=== PATIENT | female | born 1955 | race Caucasian/White ===

== ENCOUNTER 2020-05-10 21:35 | Inpatient (IN) | payer OTHER, MEDICAID ==
[~2020-05-10] VITALS: Ht 162.6 cm; Wt 60.5 kg
[2020-05-10 22:06] LABS: BASO % 0 % (0-3); EOS # 0.1 x10^3/uL (0.0-0.7); EOS % 1 % (0-3); HEMATOCRIT 34.8 % (36.0-47.0); LYMPH # 0.6 x10^3/uL (1.0-4.8); LYMPH % 6 % (24-48); MEAN CORPUSCULAR HEMOGLOBIN 35 pg (25-35); MEAN CORPUSCULAR HGB CONC 34 g/dL (31-37); MEAN CORPUSCULAR VOLUME 101 fL (79-100); MONO # 0.5 x10^3/uL (0.0-1.1); MONO % 5 % (0-9); NEUT # 8.8 x10^3/uL (1.8-7.7); NEUT % 87 % (31-73); PLATELET COUNT 212 x10^3/uL (140-400); RED BLOOD COUNT 3.45 x10^6/uL (3.50-5.40); RED CELL DISTRIBUTION WIDTH 18.6 % (11.5-14.5)
[2020-05-10 22:16] LABS: CALCIUM 8.9 mg/dL (8.5-10.1); CREATININE 2.1 mg/dL (0.6-1.0); GFR 23.7; POTASSIUM 4.6 mmol/L (3.5-5.1)
[2020-05-10 22:17] LABS: PROTHROMBIN TIME PATIENT 15.5 SEC (11.7-14.0)
[2020-05-10 22:22] LABS: ALBUMIN 1.8 g/dL (3.4-5.0); ALBUMIN/GLOBULIN RATIO 0.3 (1.0-1.7); MAGNESIUM 2.1 mg/dL (1.8-2.4); TOTAL BILIRUBIN 2.9 mg/dL (0.2-1.0); TOTAL PROTEIN 7.1 g/dL (6.4-8.2)
--- NOTE | 2020-05-10 22:23 | RAD ---
EXAM: XR CHEST 1V INDICATION: Reason: soa / Spl. Instructions: / History: . TECHNIQUE: Single view COMPARISON: None FINDINGS: The heart size is normal. The great vessels show aortic calcification and tortuosity.. There is no hilar or mediastinal mass. Lungs are hypoventilatory and show coarse interstitial lung markings. There is no pleural effusion or pneumothorax. Bones show bilateral subacromial space narrowing and generalized osteopenia. IMPRESSION: Chronic lung disease with no acute superimposed process. Electronically signed by: Angel Lizama MD (05/10/2020 10:12 PM) [facility] [place]
[2020-05-10 22:35] LABS: BILIRUBIN,URINE SMALL (NEG); CLARITY,URINE CLEAR; COLOR,URINE AMBER; NITRITE,URINE NEGATIVE (NEG); PH,URINE 5.5 (<5.0-8.0); PROTEIN,URINE NEGATIVE (NEG-TRACE); UROBILINOGEN,URINE 0.2 mg/dL (0.2 mg/dL)
[2020-05-10 22:42] LABS: BACTERIA,URINE 0 /HPF (0-FEW); RBC,URINE 0 /HPF (0-2)
[2020-05-10 22:43] LABS: HYALINE CASTS, URINE MANY /HPF
[2020-05-10 22:55] LABS: % LYMPHS 7 % (24-48); % MONOS 4 % (0-10); % SEGS 89 % (35-66); ANISOCYTOSIS SLIGHT; PLT ESTIMATE ADEQUATE (ADEQUATE); POLYCHROMASIA SLIGHT; TARGET CELLS OCC
--- NOTE | 2020-05-10 23:36 | RAD ---
EXAM: CT Abdomen and Pelvis without IV contrast INDICATION: Reason: ABDOMINAL DISTENSION / Spl. Instructions: / History: TECHNIQUE: Multi-detector row CT images were acquired from the lung bases through the abdomen and pel vis without the use of IV contrast. Sagittal and coronal images were acquired from the transaxial gonsalo a. All CT scans performed at this facility utilize dose optimization techniques as appropriate to the exam, including the following: Automated exposure control and adjustment of the mA and/or KV accordi ng to patient size (this includes techniques or standardized protocols for targeted exams where dose is indication/reason for exam). ORAL CONTRAST: None COMPARISON: Chest x-ray of earlier the same day FINDINGS: The absence of IV contrast limits evaluation of soft tissue pathology. LOWER CHEST: Trace bilateral pleural effusions. LIVER: Shrunken and nodular contour, consistent with cirrhosis. BILIARY SYSTEM: Cholecystectomy. Bile ducts are not dilated. PANCREAS: Unremarkable SPLEEN: Unremarkable ADRENALS: Unremarkable KIDNEYS & URETERS: Unremarkable BLADDER: Unremarkable REPRODUCTIVE ORGANS: Unremarkable GASTROINTESTINAL: The stomach, small bowel, and colon are unremarkable. The appendix is not well seen but there are no findings of acute appendicitis MESENTERY/PERITONEUM/RETROPERITONEUM: There is a large amount of free intraperitoneal fluid. No free air. VASCULAR: Scattered arterial calcifications. No aneurysm of the abdominal aorta. LYMPH NODES: There is a large right superficial inguinal lymph node measuring 3.7 cm in diameter. Ot herwise, no adenopathy is identified. OSSEOUS & SOFT TISSUES: Chronic appearing superior endplate compression deformity at L1 and posterio r decompression at L3 and L4 with hetal and pedicle screw construct posterior fusion noted. No acute fr acture or aggressive appearing osseous lesions seen. IMPRESSION: Cirrhosis with a large amount of ascites and an enlarged right inguinal lymph node. Recommend clinical follow-up for right inguinal adenopathy with possible eventual tissue sampling if clinically appropriate. Electronically signed by: Angel Lizama MD (05/10/2020 11:29 PM) [facility] [place]
--- NOTE | 2020-05-10 23:39 | PHYS DOC ---
Past Medical History Past Medical History: Alcoholism, Diabetes-Type II, GERD, Hypertension Additional Past Medical Histor: CIRRHOSIS, ASCITES Past Surgical History: Other Additional Past Surgical Histo: UNKNOWN Smoking Status: Current Every Day Smoker Alcohol Use: Heavy General Adult EDM: Chief Complaint: ABDOMINAL PAIN HPI: HPI: Patient is a 65 year old female who was sent here from the half-way from [facility] due to abdominal pain and shortness of air. Patient had a history of alcohol cirrhosis. Patient was yet transferred to the half-way there 2 days ago from a hospital in [facility]. Patient said her belly is distended, causing her to have trouble breathing. Patient denies any cough or fever. Patient has history of diabetic, hypertension, acid reflux. Patient said the last time she had any alcohol was 10 years ago. Review of Systems: Review of Systems: Constitutional: Denies fever or chills. [] Eyes: Denies change in visual acuity. [] HENT: Denies nasal congestion or sore throat. [] Respiratory: Denies cough, positive for shortness of breath. [] Cardiovascular: Denies chest pain or edema. [] GI: Positive for abdominal pain, abdominal distention, nausea, no vomiting, no diarrhea. : Denies dysuria. [] Musculoskeletal: Denies back pain or joint pain. [] Integument: Denies rash. [] Neurologic: Denies headache, focal weakness or sensory changes. [] Endocrine: Denies polyuria or polydipsia. [] Lymphatic: Denies swollen glands. [] Psychiatric: Denies depression or anxiety. [] Heart Score: Risk Factors: Risk Factors: DM, Current or recent (<one month) smoker, HTN, HLP, family history of CAD, obesity. Risk Scores: Score 0 - 3: 2.5% MACE over next 6 weeks - Discharge Home Score 4 - 6: 20.3% MACE over next 6 weeks - Admit for Clinical Observation Score 7 - 10: 72.7% MACE over next 6 weeks - Early Invasive Strategies Physical Exam: PE: Constitutional: Well developed, well nourished, no acute distress, non-toxic appearance. [] HENT: Normocephalic, atraumatic, bilateral external ears normal, oropharynx moist, no oral exudates, nose normal. [] Eyes: PERRLA, EOMI, conjunctiva jaundice, no discharge. [] Neck: Normal range of motion, no tenderness, supple, no stridor. [] Cardiovascular:Heart rate regular rhythm, no murmur [] Lungs & Thorax: Bilateral breath sounds clear to auscultation [] Abdomen: Bowel sounds normal, moderate distention, diffused tenderness to palpation, no masses, no pulsatile masses. [] Skin: Warm, dry, no erythema, no rash. [] Back: No tenderness, no CVA tenderness. [] Extremities: No tenderness, no cyanosis, no clubbing, ROM intact, no edema. [] Neurologic: Alert but confused, disoriented to place and time, normal motor function, normal sensory function, no focal deficits noted. [] Psychologic: Affect normal, judgement normal, mood normal. [] Current Patient Data: Labs: Laboratory Tests Test 05/10/20 21:57 05/10/20 22:30 White Blood Count 10.0 x10^3/uL (4.0-11.0) Red Blood Count 3.45 x10^6/uL (3.50-5.40) L Hemoglobin 12.0 g/dL (12.0-15.5) Hematocrit 34.8 % (36.0-47.0) L Mean Corpuscular Volume 101 fL (79-100) H Mean Corpuscular Hemoglobin 35 pg (25-35) Mean Corpuscular Hemoglobin Concent 34 g/dL (31-37) Red Cell Distribution Width 18.6 % (11.5-14.5) H Platelet Count 212 x10^3/uL (140-400) Neutrophils (%) (Auto) 87 % (31-73) H Lymphocytes (%) (Auto) 6 % (24-48) L Monocytes (%) (Auto) 5 % (0-9) Eosinophils (%) (Auto) 1 % (0-3) Basophils (%) (Auto) 0 % (0-3) Neutrophils # (Auto) 8.8 x10^3/uL (1.8-7.7) H Lymphocytes # (Auto) 0.6 x10^3/uL (1.0-4.8) L Monocytes # (Auto) 0.5 x10^3/uL (0.0-1.1) Eosinophils # (Auto) 0.1 x10^3/uL (0.0-0.7) Basophils # (Auto) 0.0 x10^3/uL (0.0-0.2) Segmented Neutrophils % 89 % (35-66) H Lymphocytes % 7 % (24-48) L Monocytes % 4 % (0-10) Platelet Estimate Adequate (ADEQUATE) Polychromasia Slight Anisocytosis Slight Target Cells Occ Prothrombin Time 15.5 SEC (11.7-14.0) H Prothrombin Time INR 1.3 (0.8-1.1) H Activated Partial Thromboplast Time 30 SEC (24-38) Sodium Level 130 mmol/L (136-145) L Potassium Level 4.6 mmol/L (3.5-5.1) Chloride Level 100 mmol/L (98-107) Carbon Dioxide Level 18 mmol/L (21-32) L Anion Gap 12 (6-14) Blood Urea Nitrogen 36 mg/dL (7-20) H Creatinine 2.1 mg/dL (0.6-1.0) H Estimated GFR (Cockcroft-Gault) 23.7 BUN/Creatinine Ratio 17 (6-20) Glucose Level 211 mg/dL (70-99) H Calcium Level 8.9 mg/dL (8.5-10.1) Magnesium Level 2.1 mg/dL (1.8-2.4) Total Bilirubin 2.9 mg/dL (0.2-1.0) H Aspartate Amino Transferase (AST) 108 U/L (15-37) H Alanine Aminotransferase (ALT) 57 U/L (14-59) Alkaline Phosphatase 442 U/L (46-116) H Ammonia 25 mcmol/L (11-34) Troponin I Quantitative < 0.017 ng/mL (0.000-0.055) XL-Xnz-J-Type Natriuretic Peptide 502 pg/mL (0-124) H Total Protein 7.1 g/dL (6.4-8.2) Albumin 1.8 g/dL (3.4-5.0) L Albumin/Globulin Ratio 0.3 (1.0-1.7) L Urine Collection Type U cath Urine Color Belia Urine Clarity Clear Urine pH 5.5 (<5.0-8.0) Urine Specific [place] 1.015 (1.000-1.030) Urine Protein Negative mg/dL (NEG-TRACE) Urine Glucose (UA) Negative mg/dL (NEG) Urine Ketones (Stick) Negative mg/dL (NEG) Urine Blood Negative (NEG) Urine Nitrite Negative (NEG) Urine Bilirubin Small (NEG) Urine Urobilinogen Dipstick 0.2 mg/dL (0.2 mg/dL) Urine Leukocyte Esterase Moderate (NEG) Urine RBC 0 /HPF (0-2) Urine WBC 5-10 /HPF (0-4) Urine Squamous Epithelial Cells Occ /LPF Urine Bacteria 0 /HPF (0-FEW) Urine Hyaline Casts Many /HPF Urine Mucus Marked /LPF Laboratory Tests 05/10/20 21:57 Laboratory Tests 05/10/20 21:57 Vital Signs: Vital Signs Date Time Temp Pulse Resp B/P (MAP) Pulse Ox O2 Delivery O2 Flow Rate FiO2 05/10/20 23:14 80 136/72 (93) 94 Nasal Cannula 4.0 05/10/20 21:40 98.6 18 98.6 EKG: EKG: EKG was done at 10:21 PM, heart rate of 78 bpm, sinus rhythm, no ST segment elevation. Prolonged QTC Radiology/Procedures: Radiology/Procedures: [][facility] [address] [place] [address] IMAGING REPORT Signed PATIENT: OSVALDO RUGGIERO ACCOUNT: [id number] : 1955 LOCATION: ER AGE: 65 SEX: F EXAM STATUS: REG ER ORD. PHYSICIAN: EVARISTO BARRAZA DO REASON: ABDOMINAL DISTENSION PROCEDURE: CT ABDOMEN PELVIS WO CONTRAST EXAM: CT Abdomen and Pelvis without IV contrast INDICATION: Reason: ABDOMINAL DISTENSION / Spl. Instructions: / History: TECHNIQUE: Multi-detector row CT images were acquired from the lung bases through the abdomen and pelvis without the use of IV contrast. Sagittal and coronal images were acquired from the transaxial data. All CT scans performed at this facility utilize dose optimization techniques as appropriate to the exam, including the following: Automated exposure control and adjustment of the mA and/or KV according to patient size (this includes techniques or standardized protocols for targeted exams where dose is indication/reason for exam). ORAL CONTRAST: None COMPARISON: Chest x-ray of earlier the same day FINDINGS: The absence of IV contrast limits evaluation of soft tissue pathology. LOWER CHEST: Trace bilateral pleural effusions. LIVER: Shrunken and nodular contour, consistent with cirrhosis. BILIARY SYSTEM: Cholecystectomy. Bile ducts are not dilated. PANCREAS: Unremarkable SPLEEN: Unremarkable ADRENALS: Unremarkable KIDNEYS & URETERS: Unremarkable BLADDER: Unremarkable REPRODUCTIVE ORGANS: Unremarkable GASTROINTESTINAL: The stomach, small bowel, and colon are unremarkable. The appendix is not well seen but there are no findings of acute appendicitis MESENTERY/PERITONEUM/RETROPERITONEUM: There is a large amount of free intraperitoneal fluid. No free air. VASCULAR: Scattered arterial calcifications. No aneurysm of the abdominal aorta. LYMPH NODES: There is a large right superficial inguinal lymph node measuring 3.7 cm in diameter. Otherwise, no adenopathy is identified. OSSEOUS & SOFT TISSUES: Chronic appearing superior endplate compression deformity at L1 and posterior decompression at L3 and L4 with hetal and pedicle screw construct posterior fusion noted. No acute fracture or aggressive appearing osseous lesions seen. IMPRESSION: Cirrhosis with a large amount of ascites and an enlarged right inguinal lymph node. Recommend clinical follow-up for right inguinal adenopathy with possible eventual tissue sampling if clinically appropriate. Electronically signed by: Dinh Lizama MD (05/10/2020 11:29 PM) [facility] [place] DICTATED and SIGNED BY: DINH LIZAMA MD DATE: 05/10/20 [id number] 0 Course & Med Decision Making: Course & Med Decision Making Pertinent Labs and Imaging studies reviewed. (See chart for details) [] Dragon Disclaimer: Dragon Disclaimer: This electronic medical record was generated, in whole or in part, using a voice recognition dictation system. Departure Departure Impression: Primary Impression: Ascites Additional Impression: Abdominal pain Disposition: 09 ADMITTED INPT THIS HOSP Admitting Physician: TREVOR (Dr. Cerna) Condition: STABLE Referrals: GUNNER HORN MD (PCP) EVARISTO BARRAZA DO May 10, 2020 23:39
[2020-05-11] MEDS ORDERED: ONDANSETRON PF 4 MG/2 ML VIAL. IV PRN ×2 (00:45→14:45)
[2020-05-11] MEDS ORDERED: MORPHINE SULFATE 4 MG/ML VIAL. IV PRN (00:45)
[2020-05-11 03:00] VITALS: BP 117/70
[2020-05-11] MEDS ORDERED: FURO-69 PO (03:10)
[2020-05-11] MEDS ORDERED: INSU100V13 SQ (03:10)
[2020-05-11] MEDS ORDERED: INSU100V6 SQ (03:10)
[2020-05-11] MEDS ORDERED: BUPR300T92 PO (03:10)
[2020-05-11] MEDS ORDERED: PANT20TA2 PO (03:10)
[2020-05-11] MEDS ORDERED: FLUO40CA2 PO (03:10)
[2020-05-11] MEDS ORDERED: SPIR50TA4 PO (03:10)
[2020-05-11] MEDS ORDERED: LACT1CAP6 PO (03:10)
[2020-05-11] MEDS ORDERED: METO50TA4 PO (03:10)
--- NOTE | 2020-05-11 04:02 | EKG ---
[facility] [address] [place] [address] Test Date: 2020-05-10 Test Time: 22:18:40 Pat Name: OSVALDO RUGGIERO Department: Room: [facility] Gender: F Dog [employer] Judge: : 1955 Requested By: EVARISTO BARRAZA Order Number: [id number] Reading MD: Perry Colvin Measurements Intervals [place] Rate: 78 P: 37 HI: 182 QRS: -14 QRSD: 98 T: 38 QT: 448 QTc: 515 Interpretive Statements SINUS RHYTHM LEFTWARD AXIS PROLONGED QT Electronically Signed On 05-20-2020 14:40:24 [employer] by Perry Colvin
[2020-05-11 07:00] VITALS: BP 107/68
--- NOTE | 2020-05-11 10:50 | PDOC1 ---
History and Physical Date of Admission Date of Admission DATE: 05/11/20 TIME: 10:49 Identification/Chief Complaint Chief Complaint 65 year old female who was sent here from the alf from [facility] due to abdominal pain and shortness of air. KNOWN history of alcohol cirrhosis. Patient was recently transferred to the alf there 2 days ago from a hospital in [facility]. Pher belly is distended, causing her to have trouble breathing. has know hx remote etoh abuse,, ascites seen on ct Past Medical History Past Medical History Past Medical History Past Medical History Past Medical History: Alcoholism, Diabetes-Type II, GERD, Hypertension Additional Past Medical Histor: CIRRHOSIS, ASCITES Past Surgical History: Other Additional Past Surgical Histo: UNKNOWN Smoking Status: Current Every Day Smoker Alcohol Use: Heavy fhx copd Cardiovascular: HTN, Hyperlipidemia Pulmonary: COPD Psych: Anxiety, Addictions Musculoskeletal: Osteoarthritis Social History Smoke: <1 pack per day ALCOHOL: heavy Drugs: None Current Problem List Problem List Problems Medical Problems: (1) Abdominal pain Status: Acute (2) Ascites Status: Acute Current Medications Current Medications Current Medications Lorazepam (Ativan Inj) 1 mg 1X ONCE IVP Last administered on 05/11/20at 00:29; Start 05/11/20 at 00:30; Stop 05/11/20 at 00:31; Status DC Ondansetron HCl (Zofran) 4 mg PRN Q8HRS PRN IV NAUSEA/VOMITING 1ST CHOICE; Start 05/11/20 at 00:45; Stop 05/12/20 at 00:44 Morphine Sulfate (Morphine Sulfate) 4 mg PRN Q2HR PRN IV SEVERE PAIN 7-10; Start 05/11/20 at 00:45; Stop 05/12/20 at 00:44 Active Scripts Active Reported Spironolactone 50 Mg Tablet 1 Tab PO BID Protonix (Pantoprazole Sodium) 20 Mg Tablet.dr 40 Mg PO DAILY Humalog (Insulin Lispro) 100 Unit/1 Ml Vial 100 Unit SQ QIDACHS Toprol XL (Metoprolol Succinate) 50 Mg Tab.er.24h 50 Mg PO DAILY Levemir (Insulin Detemir) 100 Unit/1 Ml Vial 5 Unit SQ HS Lasix (Furosemide) 20 Mg Tablet 60 Mg PO DAILY Probiotic (Lactobacillus Acidophilus) 1 Each Capsule 1 Each PO DAILY Fluoxetine Hcl 40 Mg Capsule 2 Cap PO HS Bupropion Xl (Bupropion Hcl) 300 Mg Tab.er.24h 1 Tab PO DAILY Allergies Allergies: Coded Allergies: Latex, Natural Rubber (Verified Allergy, Intermediate, 05/11/20) Physical Exam Physical Exam Constitutional: Well developed, well nourished, no acute distress, non-toxic appearance. [] HENT: Normocephalic, atraumatic, bilateral external ears normal, oropharynx moist, no oral exudates, nose normal. [] Eyes: PERRLA, EOMI, conjunctiva jaundice, no discharge. [] Neck: Normal range of motion, no tenderness, supple, no stridor. [] Cardiovascular:Heart rate regular rhythm, no murmur [] Lungs & Thorax: Bilateral breath sounds clear to auscultation [] Abdomen: Bowel sounds normal, moderate distention, diffused tenderness to palpation, no masses, no pulsatile masses. [] Skin: Warm, dry, no erythema, no rash. [] Back: No tenderness, no CVA tenderness. [] Extremities: No tenderness, no cyanosis, no clubbing, ROM intact, no edema. [] General: Alert, Cooperative, No acute distress HEENT: Atraumatic Lungs: Clear to auscultation Heart: RRR Breasts: Not examined PELVIC: Examination not indicated Extremities: No cyanosis Neuro: Cranial nerves 3-12 NL Vitals Vitals Vital Signs Date Time Temp Pulse Resp B/P (MAP) Pulse Ox O2 Delivery O2 Flow Rate FiO2 05/11/20 08:12 Nasal Cannula 4.0 05/11/20 07:00 97.2 80 18 107/68 (81) 92 97.2 Labs Labs Laboratory Tests Test 05/10/20 21:57 05/10/20 22:30 05/11/20 00:01 White Blood Count 10.0 x10^3/uL (4.0-11.0) Red Blood Count 3.45 x10^6/uL (3.50-5.40) Hemoglobin 12.0 g/dL (12.0-15.5) Hematocrit 34.8 % (36.0-47.0) Mean Corpuscular Volume 101 fL (79-100) Mean Corpuscular Hemoglobin 35 pg (25-35) Mean Corpuscular Hemoglobin Concent 34 g/dL (31-37) Red Cell Distribution Width 18.6 % (11.5-14.5) Platelet Count 212 x10^3/uL (140-400) Neutrophils (%) (Auto) 87 % (31-73) Lymphocytes (%) (Auto) 6 % (24-48) Monocytes (%) (Auto) 5 % (0-9) Eosinophils (%) (Auto) 1 % (0-3) Basophils (%) (Auto) 0 % (0-3) Neutrophils # (Auto) 8.8 x10^3/uL (1.8-7.7) Lymphocytes # (Auto) 0.6 x10^3/uL (1.0-4.8) Monocytes # (Auto) 0.5 x10^3/uL (0.0-1.1) Eosinophils # (Auto) 0.1 x10^3/uL (0.0-0.7) Basophils # (Auto) 0.0 x10^3/uL (0.0-0.2) Segmented Neutrophils % 89 % (35-66) Lymphocytes % 7 % (24-48) Monocytes % 4 % (0-10) Platelet Estimate Adequate (ADEQUATE) Polychromasia Slight Anisocytosis Slight Target Cells Occ Prothrombin Time 15.5 SEC (11.7-14.0) Prothromb Time International Ratio 1.3 (0.8-1.1) Activated Partial Thromboplast Time 30 SEC (24-38) Sodium Level 130 mmol/L (136-145) Potassium Level 4.6 mmol/L (3.5-5.1) Chloride Level 100 mmol/L (98-107) Carbon Dioxide Level 18 mmol/L (21-32) Anion Gap 12 (6-14) Blood Urea Nitrogen 36 mg/dL (7-20) Creatinine 2.1 mg/dL (0.6-1.0) Estimated GFR (Cockcroft-Gault) 23.7 BUN/Creatinine Ratio 17 (6-20) Glucose Level 211 mg/dL (70-99) Calcium Level 8.9 mg/dL (8.5-10.1) Magnesium Level 2.1 mg/dL (1.8-2.4) Total Bilirubin 2.9 mg/dL (0.2-1.0) Aspartate Amino Transf (AST/SGOT) 108 U/L (15-37) Alanine Aminotransferase (ALT/SGPT) 57 U/L (14-59) Alkaline Phosphatase 442 U/L (46-116) Ammonia 25 mcmol/L (11-34) Troponin I Quantitative < 0.017 ng/mL (0.000-0.055) RO-Exh-E-Type Natriuretic Peptide 502 pg/mL (0-124) Total Protein 7.1 g/dL (6.4-8.2) Albumin 1.8 g/dL (3.4-5.0) Albumin/Globulin Ratio 0.3 (1.0-1.7) Lipase 612 U/L (73-393) Urine Collection Type U cath Urine Color Belia Urine Clarity Clear Urine pH 5.5 (<5.0-8.0) Urine Specific [place] 1.015 (1.000-1.030) Urine Protein Negative mg/dL (NEG-TRACE) Urine Glucose (UA) Negative mg/dL (NEG) Urine Ketones (Stick) Negative mg/dL (NEG) Urine Blood Negative (NEG) Urine Nitrite Negative (NEG) Urine Bilirubin Small (NEG) Urine Urobilinogen Dipstick 0.2 mg/dL (0.2 mg/dL) Urine Leukocyte Esterase Moderate (NEG) Urine RBC 0 /HPF (0-2) Urine WBC 5-10 /HPF (0-4) Urine Squamous Epithelial Cells Occ /LPF Urine Bacteria 0 /HPF (0-FEW) Urine Hyaline Casts Many /HPF Urine Mucus Marked /LPF Ethyl Alcohol Level < 10 mg/dL (0-10) Laboratory Tests Test 05/10/20 21:57 05/10/20 22:30 05/11/20 00:01 White Blood Count 10.0 x10^3/uL (4.0-11.0) Red Blood Count 3.45 x10^6/uL (3.50-5.40) Hemoglobin 12.0 g/dL (12.0-15.5) Hematocrit 34.8 % (36.0-47.0) Mean Corpuscular Volume 101 fL (79-100) Mean Corpuscular Hemoglobin 35 pg (25-35) Mean Corpuscular Hemoglobin Concent 34 g/dL (31-37) Red Cell Distribution Width 18.6 % (11.5-14.5) Platelet Count 212 x10^3/uL (140-400) Neutrophils (%) (Auto) 87 % (31-73) Lymphocytes (%) (Auto) 6 % (24-48) Monocytes (%) (Auto) 5 % (0-9) Eosinophils (%) (Auto) 1 % (0-3) Basophils (%) (Auto) 0 % (0-3) Neutrophils # (Auto) 8.8 x10^3/uL (1.8-7.7) Lymphocytes # (Auto) 0.6 x10^3/uL (1.0-4.8) Monocytes # (Auto) 0.5 x10^3/uL (0.0-1.1) Eosinophils # (Auto) 0.1 x10^3/uL (0.0-0.7) Basophils # (Auto) 0.0 x10^3/uL (0.0-0.2) Segmented Neutrophils % 89 % (35-66) Lymphocytes % 7 % (24-48) Monocytes % 4 % (0-10) Platelet Estimate Adequate (ADEQUATE) Polychromasia Slight Anisocytosis Slight Target Cells Occ Prothrombin Time 15.5 SEC (11.7-14.0) Prothromb Time International Ratio 1.3 (0.8-1.1) Activated Partial Thromboplast Time 30 SEC (24-38) Sodium Level 130 mmol/L (136-145) Potassium Level 4.6 mmol/L (3.5-5.1) Chloride Level 100 mmol/L (98-107) Carbon Dioxide Level 18 mmol/L (21-32) Anion Gap 12 (6-14) Blood Urea Nitrogen 36 mg/dL (7-20) Creatinine 2.1 mg/dL (0.6-1.0) Estimated GFR (Cockcroft-Gault) 23.7 BUN/Creatinine Ratio 17 (6-20) Glucose Level 211 mg/dL (70-99) Calcium Level 8.9 mg/dL (8.5-10.1) Magnesium Level 2.1 mg/dL (1.8-2.4) Total Bilirubin 2.9 mg/dL (0.2-1.0) Aspartate Amino Transf (AST/SGOT) 108 U/L (15-37) Alanine Aminotransferase (ALT/SGPT) 57 U/L (14-59) Alkaline Phosphatase 442 U/L (46-116) Ammonia 25 mcmol/L (11-34) Troponin I Quantitative < 0.017 ng/mL (0.000-0.055) VT-Gbw-W-Type Natriuretic Peptide 502 pg/mL (0-124) Total Protein 7.1 g/dL (6.4-8.2) Albumin 1.8 g/dL (3.4-5.0) Albumin/Globulin Ratio 0.3 (1.0-1.7) Lipase 612 U/L (73-393) Urine Collection Type U cath Urine Color Belia Urine Clarity Clear Urine pH 5.5 (<5.0-8.0) Urine Specific Talcott 1.015 (1.000-1.030) Urine Protein Negative mg/dL (NEG-TRACE) Urine Glucose (UA) Negative mg/dL (NEG) Urine Ketones (Stick) Negative mg/dL (NEG) Urine Blood Negative (NEG) Urine Nitrite Negative (NEG) Urine Bilirubin Small (NEG) Urine Urobilinogen Dipstick 0.2 mg/dL (0.2 mg/dL) Urine Leukocyte Esterase Moderate (NEG) Urine RBC 0 /HPF (0-2) Urine WBC 5-10 /HPF (0-4) Urine Squamous Epithelial Cells Occ /LPF Urine Bacteria 0 /HPF (0-FEW) Urine Hyaline Casts Many /HPF Urine Mucus Marked /LPF Ethyl Alcohol Level < 10 mg/dL (0-10) Images Images EXAM: XR CHEST 1V INDICATION: Reason: soa / Spl. Instructions: / History: . TECHNIQUE: Single view COMPARISON: None FINDINGS: The heart size is normal. The great vessels show aortic calcification and tortuosity.. There is no hilar or mediastinal mass. Lungs are hypoventilatory and show coarse interstitial lung markings. There is no pleural effusion or pneumothorax. Bones show bilateral subacromial space narrowing and generalized osteopenia. IMPRESSION: Chronic lung disease with no acute superimposed process. Electronically signed by: Dinh Lizama MD (05/10/2020 10:12 PM) [facility] [place]CTATED and SIGNED BY: DINH LIZAMA MD DATE: 05/10/20 [id number] EXAM: CT Abdomen and Pelvis without IV contrast INDICATION: Reason: ABDOMINAL DISTENSION / Spl. Instructions: / History: TECHNIQUE: Multi-detector row CT images were acquired from the lung bases through the abdomen and pelvis without the use of IV contrast. Sagittal and coronal images were acquired from the transaxial data. All CT scans performed at this facility utilize dose optimization techniques as appropriate to the exam, including the following: Automated exposure control and adjustment of the mA and/or KV according to patient size (this includes techniques or standardized protocols for targeted exams where dose is indication/reason for exam). ORAL CONTRAST: None COMPARISON: Chest x-ray of earlier the same day FINDINGS: The absence of IV contrast limits evaluation of soft tissue pathology. LOWER CHEST: Trace bilateral pleural effusions. LIVER: Shrunken and nodular contour, consistent with cirrhosis. BILIARY SYSTEM: Cholecystectomy. Bile ducts are not dilated. PANCREAS: Unremarkable SPLEEN: Unremarkable ADRENALS: Unremarkable KIDNEYS & URETERS: Unremarkable BLADDER: Unremarkable REPRODUCTIVE ORGANS: Unremarkable GASTROINTESTINAL: The stomach, small bowel, and colon are unremarkable. The appendix is not well seen but there are no findings of acute appendicitis MESENTERY/PERITONEUM/RETROPERITONEUM: There is a large amount of free intraperitoneal fluid. No free air. VASCULAR: Scattered arterial calcifications. No aneurysm of the abdominal aorta. LYMPH NODES: There is a large right superficial inguinal lymph node measuring 3.7 cm in diameter. Otherwise, no adenopathy is identified. OSSEOUS & SOFT TISSUES: Chronic appearing superior endplate compression deformity at L1 and posterior decompression at L3 and L4 with hetal and pedicle screw construct posterior fusion noted. No acute fracture or aggressive appearing osseous lesions seen. IMPRESSION: Cirrhosis with a large amount of ascites and an enlarged right inguinal lymph node. Recommend clinical follow-up for right inguinal adenopathy with possible eventual tissue sampling if clinically appropriate. Electronically signed by: Dinh Lizama MD (05/10/2020 11:29 PM) [facility] VTE Prophylaxis Ordered VTE Prophylaxis Devices: No VTE Pharmacological Prophylaxi: Yes Assessment/Plan Assessment/Plan IMPRESSION: Chronic lung disease with no acute superimposed process. COPD SMOKING CESSATION EDUCATION PROVIDED Acute hypoxic respiratory failure O2 SUPPORT, KEEP SPO2 > 93% copd SEVERE ALCOHOL ABUSE , remote stopped 1977, still admits to use on birthday, holidays? 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 Chronic appearing superior endplate compression deformity at L1 and posterior decompression at L3 and L4 with hetal and pedicle screw construct posterior fusion pt/ot hyponatremia, HYPOVOLEMIC BRISA NEPHROLOGY CONSULT diabetes SS INSULIN GERD PROTONIX TOBACCO ABUSE DISORDER Cessation education provided serial LFTS/ammonia level therapeutic paracentesis with fluid analysis dictated Justifications for Admission Other Justification HUMBERTO GABRIEL MD May 11, 2020 10:50
[2020-05-11 11:00] VITALS: BP 131/85
--- NOTE | 2020-05-11 14:15 | PDOC2 ---
CONSULT Date of Consult Date of Consult DATE: 05/11/20 TIME: 14:13 Reason for Consult Reason for Consult: Cirrhosis/ascites/encephalopathy Past Medical History Cardiovascular: Hyperlipidemia Pulmonary: COPD Social History <1 pack per day ALCOHOL: heavy Drugs: None Current Problem List Problem List Problems Medical Problems: (1) Abdominal pain Status: Acute (2) Ascites Status: Acute Current Medications Current Medications Current Medications Lorazepam (Ativan Inj) 1 mg 1X ONCE IVP Last administered on 05/11/20at 00:29; Start 05/11/20 at 00:30; Stop 05/11/20 at 00:31; Status DC Ondansetron HCl (Zofran) 4 mg PRN Q8HRS PRN IV NAUSEA/VOMITING 1ST CHOICE; Start 05/11/20 at 00:45; Stop 05/12/20 at 00:44 Morphine Sulfate (Morphine Sulfate) 4 mg PRN Q2HR PRN IV SEVERE PAIN 7-10; Start 05/11/20 at 00:45; Stop 05/12/20 at 00:44 Active Scripts Active Reported Spironolactone 50 Mg Tablet 1 Tab PO BID Protonix (Pantoprazole Sodium) 20 Mg Tablet.dr 40 Mg PO DAILY Humalog (Insulin Lispro) 100 Unit/1 Ml Vial 100 Unit SQ QIDACHS Toprol XL (Metoprolol Succinate) 50 Mg Tab.er.24h 50 Mg PO DAILY Levemir (Insulin Detemir) 100 Unit/1 Ml Vial 5 Unit SQ HS Lasix (Furosemide) 20 Mg Tablet 60 Mg PO DAILY Probiotic (Lactobacillus Acidophilus) 1 Each Capsule 1 Each PO DAILY Fluoxetine Hcl 40 Mg Capsule 2 Cap PO HS Bupropion Xl (Bupropion Hcl) 300 Mg Tab.er.24h 1 Tab PO DAILY Allergies Allergies: Coded Allergies: Latex, Natural Rubber (Verified Allergy, Intermediate, 05/11/20) Vitals VITALS Vital Signs Date Time Temp Pulse Resp B/P (MAP) Pulse Ox O2 Delivery O2 Flow Rate FiO2 05/11/20 11:00 97.8 82 22 131/85 (100) 92 Nasal Cannula 4.0 97.8 Labs Labs Laboratory Tests Test 05/10/20 21:57 05/10/20 22:30 05/11/20 00:01 White Blood Count 10.0 x10^3/uL (4.0-11.0) Red Blood Count 3.45 x10^6/uL (3.50-5.40) Hemoglobin 12.0 g/dL (12.0-15.5) Hematocrit 34.8 % (36.0-47.0) Mean Corpuscular Volume 101 fL (79-100) Mean Corpuscular Hemoglobin 35 pg (25-35) Mean Corpuscular Hemoglobin Concent 34 g/dL (31-37) Red Cell Distribution Width 18.6 % (11.5-14.5) Platelet Count 212 x10^3/uL (140-400) Neutrophils (%) (Auto) 87 % (31-73) Lymphocytes (%) (Auto) 6 % (24-48) Monocytes (%) (Auto) 5 % (0-9) Eosinophils (%) (Auto) 1 % (0-3) Basophils (%) (Auto) 0 % (0-3) Neutrophils # (Auto) 8.8 x10^3/uL (1.8-7.7) Lymphocytes # (Auto) 0.6 x10^3/uL (1.0-4.8) Monocytes # (Auto) 0.5 x10^3/uL (0.0-1.1) Eosinophils # (Auto) 0.1 x10^3/uL (0.0-0.7) Basophils # (Auto) 0.0 x10^3/uL (0.0-0.2) Segmented Neutrophils % 89 % (35-66) Lymphocytes % 7 % (24-48) Monocytes % 4 % (0-10) Platelet Estimate Adequate (ADEQUATE) Polychromasia Slight Anisocytosis Slight Target Cells Occ Prothrombin Time 15.5 SEC (11.7-14.0) Prothromb Time International Ratio 1.3 (0.8-1.1) Activated Partial Thromboplast Time 30 SEC (24-38) Sodium Level 130 mmol/L (136-145) Potassium Level 4.6 mmol/L (3.5-5.1) Chloride Level 100 mmol/L (98-107) Carbon Dioxide Level 18 mmol/L (21-32) Anion Gap 12 (6-14) Blood Urea Nitrogen 36 mg/dL (7-20) Creatinine 2.1 mg/dL (0.6-1.0) Estimated GFR (Cockcroft-Gault) 23.7 BUN/Creatinine Ratio 17 (6-20) Glucose Level 211 mg/dL (70-99) Calcium Level 8.9 mg/dL (8.5-10.1) Magnesium Level 2.1 mg/dL (1.8-2.4) Total Bilirubin 2.9 mg/dL (0.2-1.0) Aspartate Amino Transf (AST/SGOT) 108 U/L (15-37) Alanine Aminotransferase (ALT/SGPT) 57 U/L (14-59) Alkaline Phosphatase 442 U/L (46-116) Ammonia 25 mcmol/L (11-34) Troponin I Quantitative < 0.017 ng/mL (0.000-0.055) OX-Ugk-A-Type Natriuretic Peptide 502 pg/mL (0-124) Total Protein 7.1 g/dL (6.4-8.2) Albumin 1.8 g/dL (3.4-5.0) Albumin/Globulin Ratio 0.3 (1.0-1.7) Lipase 612 U/L (73-393) Urine Collection Type U cath Urine Color Belia Urine Clarity Clear Urine pH 5.5 (<5.0-8.0) Urine Specific Blair 1.015 (1.000-1.030) Urine Protein Negative mg/dL (NEG-TRACE) Urine Glucose (UA) Negative mg/dL (NEG) Urine Ketones (Stick) Negative mg/dL (NEG) Urine Blood Negative (NEG) Urine Nitrite Negative (NEG) Urine Bilirubin Small (NEG) Urine Urobilinogen Dipstick 0.2 mg/dL (0.2 mg/dL) Urine Leukocyte Esterase Moderate (NEG) Urine RBC 0 /HPF (0-2) Urine WBC 5-10 /HPF (0-4) Urine Squamous Epithelial Cells Occ /LPF Urine Bacteria 0 /HPF (0-FEW) Urine Hyaline Casts Many /HPF Urine Mucus Marked /LPF Ethyl Alcohol Level < 10 mg/dL (0-10) Laboratory Tests Test 05/10/20 21:57 05/10/20 22:30 05/11/20 00:01 White Blood Count 10.0 x10^3/uL (4.0-11.0) Red Blood Count 3.45 x10^6/uL (3.50-5.40) Hemoglobin 12.0 g/dL (12.0-15.5) Hematocrit 34.8 % (36.0-47.0) Mean Corpuscular Volume 101 fL (79-100) Mean Corpuscular Hemoglobin 35 pg (25-35) Mean Corpuscular Hemoglobin Concent 34 g/dL (31-37) Red Cell Distribution Width 18.6 % (11.5-14.5) Platelet Count 212 x10^3/uL (140-400) Neutrophils (%) (Auto) 87 % (31-73) Lymphocytes (%) (Auto) 6 % (24-48) Monocytes (%) (Auto) 5 % (0-9) Eosinophils (%) (Auto) 1 % (0-3) Basophils (%) (Auto) 0 % (0-3) Neutrophils # (Auto) 8.8 x10^3/uL (1.8-7.7) Lymphocytes # (Auto) 0.6 x10^3/uL (1.0-4.8) Monocytes # (Auto) 0.5 x10^3/uL (0.0-1.1) Eosinophils # (Auto) 0.1 x10^3/uL (0.0-0.7) Basophils # (Auto) 0.0 x10^3/uL (0.0-0.2) Segmented Neutrophils % 89 % (35-66) Lymphocytes % 7 % (24-48) Monocytes % 4 % (0-10) Platelet Estimate Adequate (ADEQUATE) Polychromasia Slight Anisocytosis Slight Target Cells Occ Prothrombin Time 15.5 SEC (11.7-14.0) Prothromb Time International Ratio 1.3 (0.8-1.1) Activated Partial Thromboplast Time 30 SEC (24-38) Sodium Level 130 mmol/L (136-145) Potassium Level 4.6 mmol/L (3.5-5.1) Chloride Level 100 mmol/L (98-107) Carbon Dioxide Level 18 mmol/L (21-32) Anion Gap 12 (6-14) Blood Urea Nitrogen 36 mg/dL (7-20) Creatinine 2.1 mg/dL (0.6-1.0) Estimated GFR (Cockcroft-Gault) 23.7 BUN/Creatinine Ratio 17 (6-20) Glucose Level 211 mg/dL (70-99) Calcium Level 8.9 mg/dL (8.5-10.1) Magnesium Level 2.1 mg/dL (1.8-2.4) Total Bilirubin 2.9 mg/dL (0.2-1.0) Aspartate Amino Transf (AST/SGOT) 108 U/L (15-37) Alanine Aminotransferase (ALT/SGPT) 57 U/L (14-59) Alkaline Phosphatase 442 U/L (46-116) Ammonia 25 mcmol/L (11-34) Troponin I Quantitative < 0.017 ng/mL (0.000-0.055) OV-Tbs-A-Type Natriuretic Peptide 502 pg/mL (0-124) Total Protein 7.1 g/dL (6.4-8.2) Albumin 1.8 g/dL (3.4-5.0) Albumin/Globulin Ratio 0.3 (1.0-1.7) Lipase 612 U/L (73-393) Urine Collection Type U cath Urine Color Belia Urine Clarity Clear Urine pH 5.5 (<5.0-8.0) Urine Specific Blair 1.015 (1.000-1.030) Urine Protein Negative mg/dL (NEG-TRACE) Urine Glucose (UA) Negative mg/dL (NEG) Urine Ketones (Stick) Negative mg/dL (NEG) Urine Blood Negative (NEG) Urine Nitrite Negative (NEG) Urine Bilirubin Small (NEG) Urine Urobilinogen Dipstick 0.2 mg/dL (0.2 mg/dL) Urine Leukocyte Esterase Moderate (NEG) Urine RBC 0 /HPF (0-2) Urine WBC 5-10 /HPF (0-4) Urine Squamous Epithelial Cells Occ /LPF Urine Bacteria 0 /HPF (0-FEW) Urine Hyaline Casts Many /HPF Urine Mucus Marked /LPF Ethyl Alcohol Level < 10 mg/dL (0-10) Assessment/Plan Assessment/Plan Cirrhosis-with ascites/encephalopathy and enlarged lymph node. ALcoholic cirrhoisis leads differential. 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 Plan aldactone 100 mg daily serial LFTS/ammonia level therapeutic paracentesis with fluid analysis possible lymph node biopsy pending above Full note dictated ZOFIA JUSTIN MD May 11, 2020 14:15
[2020-05-11] MEDS ORDERED: 0.9 % SODIUM CHLORIDE 10 ML DISP.SYRIN. IV PRN (14:45)
[2020-05-11] MEDS ORDERED: ALBUTEROL SULFATE 2.5 MG/3 ML NEBU. NEB PRN (14:45)
[2020-05-11] MEDS ORDERED: guaiFENesin ORAL 200 MG/10 ML LIQUID. PO PRN (14:45)
[2020-05-11] MEDS ORDERED: DEXTROSE 50% 25 GM / 50ML DISP.SYRIN. IV PRN (14:45)
[2020-05-11] MEDS ORDERED: IPRATRPIUM/ALBUTEROL 0.5/2.5MG 3 ML NEBU. NEB PRN (14:45)
[2020-05-11] MEDS ORDERED: DOCUSATE SODIUM 100 MG CAPSULE. PO PRN (14:45)
[2020-05-11] MEDS ORDERED: SODIUM PHOSPHATES 19/7GM 133 ML ENEMA. PR PRN (14:45)
[2020-05-11] MEDS ORDERED: ACETAMINOPHEN 325 MG TABLET. PO PRN (14:45)
[2020-05-11 15:00] VITALS: BP 110/77
[2020-05-11] MEDS: IV NORMAL SALINE 1000ML BAG 1,000 ML IV SCH (15:08)
[2020-05-11] MEDS: cefTRIAXone IV Push 1 GM VIAL. IVP SCH (15:09)
--- NOTE | 2020-05-11 15:16 | CONS ---
DATE OF CONSULTATION: 05/11/2020 REASON FOR CONSULTATION: Cirrhosis, ascites, and enlarged lymph node. HISTORY OF PRESENT ILLNESS: A 65-year-old female whose past medical history is significant for cirrhosis, tobaccoism, alcoholism, diabetes, reflux, hypertension, apparent encephalopathy and her dementia, is admitted to [facility] with increasing difficulties with breathing. Subsequent evaluation including imaging and labs reveals borderline jaundice as well as massive ascites. The patient states she has not undergone any previous abdominal surgeries, has had increased difficulties recently with her abdominal distention and pain. Denies fevers, night sweats or chills, but is otherwise a poor and elusive historian and is noted to have enlarged lymph node on CT scan. PAST MEDICAL HISTORY: Cirrhosis, alcoholism, diabetes, GERD, hypertension. ALLERGIES: LATEX. MEDICATIONS: Morphine, ondansetron. Aldactone will be held due to her renal function with creatinine of 2. This continues to rise, consultation for renal will then be recommended as well. PHYSICAL EXAMINATION: GENERAL: Reveals a well-nourished, well-developed female who is jaundiced. VITAL SIGNS: Her temperature is 97.8, pulse 82, respiratory rate is 22, blood pressure is 131/85. LUNGS: Reveal decreased breath sounds. CARDIOVASCULAR: Reveals an S1, S2 without S3, S4 or appreciable murmur. ABDOMEN: Reveals a soft and distended abdomen with moderate fluid wave. LYMPHATICS: Lymph node was not examined. EXTREMITIES: Reveals edema. LABORATORY STUDIES: Hemoglobin is 12, hematocrit 34.8, white count 10.0, platelet count is 212,000. Sodium 130, potassium 4.6, chloride 100, BUN 36, creatinine 2.1, glucose 211, calcium 8.9, magnesium 2.1, total bilirubin 2.9, AST of 108, ALT 57, alk phos of 442, total protein 7.1, albumin 1.8, lipase is 612. INR is 1.3. CT scan reveals an enlarged lymph node, massive ascites and a nodular liver. IMPRESSION: Cirrhosis with ascites and little lymph node. 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 Therefore, recommend therapeutic paracentesis with fluid analysis, AFP, CA 19-9 levels. Consider lymph node biopsy depending upon what the cytology and other tumor markers evaluated. In addition, renal consultation may be needed if the patient's renal function continues to worsen suggestive of the hepatorenal syndrome. ZOFIA JUSTIN MD DR: TERRI/rosanne JOB#: [id number] / [id number] [address]
[2020-05-11] MEDS: LACTOBACILLUS RHAMNOSUS GG 1 CAPSULE. PO SCH (15:28)
[2020-05-11] MEDS: buPROPion XL 150 MG TAB.ER.24H. PO SCH (15:28)
[2020-05-11] MEDS: SPIRONOLACTONE 25 MG TABLET PO SCH ×2 (15:28→21:05)
[2020-05-11] MEDS: METOPROLOL SUCC 24HR ER 50 MG TAB.ER.24H. PO SCH (15:28)
[2020-05-11] MEDS: PANTOPRAZOLE 40 MG TABLET.DR. PO SCH (15:28)
[2020-05-11] MEDS: FUROSEMIDE 40 MG TABLET. PO SCH (15:29)
--- NOTE | 2020-05-11 15:39 | NUR ---
This RN attempted to place an IV x2 with no success. Sarai, nursing grease refining supervisor paged and notified to come attempt IV stick. Addendum: 05/11/20 at 1641 by HENRIQUE SANTO RN Sarai, nursing grease refining supervisor attempted to place IV x2 without success. Stated she would contact anesthesia. This RN paged Dr. Roberson to notify.
[2020-05-11] MEDS: ENOXAPARIN 30 MG/0.3 ML SYRINGE. SQ SCH (16:44)
[2020-05-11] MEDS: INSULIN LISPRO 300 UNITS/3 ML VIAL. SQ SCH (17:00)
--- NOTE | 2020-05-11 17:10 | HP ---
ADMIT DATE: 05/11/2020 ADMISSION HISTORY CHIEF COMPLAINT: Abdominal pain and shortness of air, ascites seen on CT. HISTORY OF PRESENT ILLNESS: This is a 65-year-old female with a remote history of alcohol abuse, was seen in the ER after transfer from [facility] for abdominal pain and shortness of breath. She states that her abdomen is distended and she was having some trouble breathing. Denies cough or fever. When seen in the ER, she had evidence of moderate ascites, also enlarged inguinal lymph node present. She has a long history of smoking. She states she stopped drinking heavily in 1977, but still drinks occasionally. She was found to have a large superficial lymph node measuring 3.78 cm in diameter in the right inguinal region. PAST MEDICAL HISTORY: Significant for cirrhosis, severe alcohol abuse, COPD, diabetes, esophageal reflux disease, tobacco abuse disorder., HTN REVIEW OF SYSTEMS: The patient denies fever or chills. Denies nasal congestion, cough, but she does note shortness of breath. Denies chest pain. Admits to abdominal pain, distention, nausea. No vomiting, no diarrhea. Denies dysuria. Denies back pain, rash, headache, global weakness. Denies polyuria or polydipsia. Denies depression or anxiety. A 14-point review of systems otherwise negative. She is less short of air today on my visit. SHX smoker < 1/2 PPD ETOH, she is evasive but syill drinks, but denies abusive intake PHYSICAL EXAMINATION: GENERAL: Mildly confused, well nourished, in no acute distress. HEENT: Throat and pharynx are clear. Extraocular muscles are intact. Visual lockwood are full to confrontation. She does have some jaundice present., scleral icteric NECK: Supple, without stridor or JVD. CARDIOVASCULAR: Regular rate without murmur, S3 or S4. LUNGS: Clear to auscultation. ABDOMEN: Soft, moderate distention, diffuse tenderness to palpation. I am not able to appreciate ascites fluid wave. SKIN: Warm and dry. BACK: Without CVA tenderness. EXTREMITIES: No clubbing, cyanosis or edema. NEUROLOGIC: Alert but confused, disoriented to place. No focal deficits are present. Muscles of mastication are symmetric bilaterally. Affect is normal. Mood is normal. She is confused to details. LABORATORY VALUES: Show sodium of 130, BUN 36, creatinine 2.1, glucose 211, alk phos 442. Ammonia is 25. Lipase is 12, albumin 1.8, proBNP is 50. CT abdomen shows large amount of ascites and enlarge right lymph node, chronic superior endplate compression of the L1 and posterior decompression of L3-L4 with ____ pedicle screws construction. No acute fracture. Bladder is unremarkable. Kidneys are unremarkable on CT. Spleen is unremarkable. She has had a previous cholecystectomy. Chest x-ray shows trace bilateral pleural effusions. ASSESSMENT: 1. This is a 65-year-old female with a history of chronic lung disease, chronic obstructive pulmonary disease who presents with hypoxia. She is a patient under investigation for COVID. 2. Acute hypoxic respiratory failure. 3. Severe alcohol abuse, reportedly stopped in 1977 but still admits of occasional use. We will continue CIWA protocol. 4. Cirrhosis. We will consult GI. Paracentesis. Differential diagnosis includes malignancy, tuberculosis, lymphoma. Begin Aldactone 100 mg daily. 5. Enlarged right lymph node, large right superficial node measuring 3.78 cm in the inguinal canal. 6. Chronic appearing endplate deformity of L1, posterior decompression of L3 and L4 with pedicle screw construction. 7. Hyponatremia, hypovolemic with acute kidney injury. We will consult Nephrology. 8. Diabetes. We will begin sliding scale insulin. 9. Esophageal reflux disease. Continue Protonix. 10. Tobacco abuse disorder. Cessation education provided. 11. Ascites, therapeutic paracentesis with fluid analysis. will follow., Consult IR Total patient exam, time and chart review was 78 minutes, greater than 50% of time was spent with patient's exam, chart review and the patient's care, coordination. HUMBERTO GABRIEL MD DR: EMMA/rosanne JOB#: [id number] / [id number] GABE
[2020-05-11 19:47] VITALS: BP 129/78
[2020-05-11] MEDS ORDERED: INSULIN GLARGINE SYRINGE. SQ SCH (21:00)
[2020-05-11] MEDS: INSULIN GLARGINE SYRINGE. SQ SCH (21:00)
[2020-05-11] MEDS: FLUoxetine HCL 20 MG CAPSULE PO SCH (21:05)
[2020-05-11] MEDS: diphenhydrAMINE 50 MG/ML VIAL IVP PRN (21:05)
--- NOTE | 2020-05-11 21:08 | NUR ---
HS lantus non administered, patient consumed no supper, HS blood sugar 154.
[2020-05-11 23:37] VITALS: BP 122/62
[2020-05-12] VITALS (7 sets, daily range): BP systolic 89–127; BP diastolic 51–87
[2020-05-12 08:21] LABS: ALBUMIN 1.7 g/dL (3.4-5.0); ALBUMIN/GLOBULIN RATIO 0.4 (1.0-1.7); CALCIUM 8.6 mg/dL (8.5-10.1); CREATININE 2.1 mg/dL (0.6-1.0); GFR 23.7; POTASSIUM 4.1 mmol/L (3.5-5.1); TOTAL BILIRUBIN 2.9 mg/dL (0.2-1.0); TOTAL PROTEIN 6.5 g/dL (6.4-8.2)
[2020-05-12 08:23] LABS: BASO # 0.1 x10^3/uL (0.0-0.2); BASO % 1 % (0-3); EOS # 0.2 x10^3/uL (0.0-0.7); EOS % 2 % (0-3); HEMOGLOBIN 11.1 g/dL (12.0-15.5); LYMPH # 0.7 x10^3/uL (1.0-4.8); LYMPH % 8 % (24-48); MEAN CORPUSCULAR HEMOGLOBIN 34 pg (25-35); MEAN CORPUSCULAR HGB CONC 34 g/dL (31-37); MEAN CORPUSCULAR VOLUME 101 fL (79-100); MONO # 0.5 x10^3/uL (0.0-1.1); MONO % 5 % (0-9); NEUT # 7.4 x10^3/uL (1.8-7.7); NEUT % 84 % (31-73); PLATELET COUNT 199 x10^3/uL (140-400); RED BLOOD COUNT 3.27 x10^6/uL (3.50-5.40); RED CELL DISTRIBUTION WIDTH 18.8 % (11.5-14.5); WHITE BLOOD COUNT 8.9 x10^3/uL (4.0-11.0)
[2020-05-12] MEDS: buPROPion XL 150 MG TAB.ER.24H. PO SCH (08:48)
[2020-05-12] MEDS: INSULIN LISPRO 300 UNITS/3 ML VIAL. SQ SCH ×3 (08:49→17:20)
[2020-05-12] MEDS: FUROSEMIDE 40 MG TABLET. PO SCH (08:50)
[2020-05-12] MEDS: PANTOPRAZOLE 40 MG TABLET.DR. PO SCH (08:52)
[2020-05-12] MEDS: METOPROLOL SUCC 24HR ER 50 MG TAB.ER.24H. PO SCH (08:52)
[2020-05-12] MEDS: LACTOBACILLUS RHAMNOSUS GG 1 CAPSULE. PO SCH (08:52)
[2020-05-12] MEDS: SPIRONOLACTONE 25 MG TABLET PO SCH ×2 (08:53→22:15)
[2020-05-12] MEDS: LORazepam 0.5 MG TABLET PO PRN ×2 (09:51→22:14)
[2020-05-12] MEDS: IV NORMAL SALINE 1000ML BAG 1,000 ML IV SCH ×2 (09:51→17:25)
--- NOTE | 2020-05-12 10:07 | PDOC2 ---
CONSULT Date of Consult Date of Consult DATE: 05/12/20 TIME: 10:06 Reason for Consult Reason for Consult: BRISA Identification/Chief Complaint Chief Complaint Unable to Obtain Pt confused Source Source: Chart review History of Present Illness Reason for Visit: Pt is a 65-year-old female past medical history of Cirrhosis, t obaccoism, alcoholism, diabetes,GERD,hypertension, apparent encephalopathy , dementia, admitted with increasing difficulties with breathing. Imaging revealed massive ascites. . Denies fevers, night sweats or chills, No N/V/D . She is a poor historian Past Medical History Cardiovascular: HTN, Hyperlipidemia Pulmonary: COPD Psych: Anxiety, Addictions Musculoskeletal: Osteoarthritis Social History <1 pack per day ALCOHOL: heavy Drugs: None Current Problem List Problem List Problems Medical Problems: (1) Abdominal pain Status: Acute (2) Ascites Status: Acute Current Medications Current Medications Current Medications Lorazepam (Ativan Inj) 1 mg 1X ONCE IVP Last administered on 05/11/20at 00:29; Start 05/11/20 at 00:30; Stop 05/11/20 at 00:31; Status DC Ondansetron HCl (Zofran) 4 mg PRN Q8HRS PRN IV NAUSEA/VOMITING 1ST CHOICE; Start 05/11/20 at 00:45; Stop 05/11/20 at 14:59; Status DC Morphine Sulfate (Morphine Sulfate) 4 mg PRN Q2HR PRN IV SEVERE PAIN 7-10; Start 05/11/20 at 00:45; Stop 05/12/20 at 00:44; Status DC Furosemide (Lasix) 60 mg DAILY PO Last administered on 05/12/20at 08:50; Start 05/11/20 at 15:00 Metoprolol Succinate (Toprol Xl) 50 mg DAILY PO Last administered on 05/12/20at 08:52; Start 05/11/20 at 15:00 Bupropion HCl (Wellbutrin Xl) 300 mg DAILY PO Last administered on 05/12/20at 08:48; Start 05/11/20 at 15:00 Fluoxetine HCl (PROzac) 80 mg HS PO Last administered on 05/11/20at 21:05; Start 05/11/20 at 21:00 Insulin Glargine (Lantus Syringe) 5 unit QHS SQ ; Start 05/11/20 at 21:00; Stop 05/11/20 at 14:33; Status DC Lactobacillus Rhamnosus (Culturelle) 1 cap DAILY PO Last administered on 05/12/20at 08:52; Start 05/11/20 at 15:00 Pantoprazole Sodium (Protonix) 40 mg DAILYAC PO Last administered on 05/12/20at 08:52; Start 05/11/20 at 15:00 Spironolactone (Aldactone) 50 mg BID PO Last administered on 05/12/20at 08:53; Start 05/11/20 at 15:00 Insulin Glargine (Lantus Syringe) 10 unit QHS SQ ; Start 05/11/20 at 21:00 Insulin Human Lispro (HumaLOG) 0-5 UNITS TIDWMEALS SQ Last administered on 05/12/20at 08:49; Start 05/11/20 at 17:00 Dextrose (Dextrose 50%-Water Syringe) 12.5 gm PRN Q15MIN PRN IV SEE COMMENTS; Start 05/11/20 at 14:45 Ceftriaxone Sodium (Rocephin) 1 gm Q24H IVP Last administered on 05/11/20at 15:09; Start 05/11/20 at 15:00 Sodium Chloride (Normal Saline Flush) 3 ml QSHIFT PRN IV AFTER MEDS AND BLOOD DRAWS; Start 05/11/20 at 14:45 Sodium Chloride 1,000 ml @ 75 mls/hr [id number] IV Last administered on 05/12/20at 09:51; Start 05/11/20 at 14:45 Ondansetron HCl (Zofran) 4 mg PRN Q4HRS PRN IV NAUSEA/VOMITING; Start 05/11/20 at 14:45 Acetaminophen (Tylenol) 650 mg PRN Q4HRS PRN PO TEMP OVER 100.4F OR MILD PAIN; Start 05/11/20 at 14:45 Sodium Monofluorophosphate (Fleet Adult) 133 ml PRN DAILY PRN CA CONSTIPATION; Start 05/11/20 at 14:45 Diphenhydramine HCl (Benadryl) 25 mg PRN Q4HRS PRN IVP ITCHING Last administered on 05/11/20at 21:05; Start 05/11/20 at 14:45 Docusate Sodium (Colace) 100 mg PRN BID PRN PO HARD STOOLS; Start 05/11/20 at 14:45 Albuterol Sulfate (Ventolin Neb Soln) 2.5 mg PRN Q4HRS PRN NEB SHORTNESS OF BREATH; Start 05/11/20 at 14:45 Albuterol/ Ipratropium (Duoneb) 3 ml PRN Q4HRS PRN NEB SHORTNESS OF BREATH; Start 05/11/20 at 14:45 Guaifenesin (Robitussin) 200 mg PRN Q4HRS PRN PO COUGH; Start 05/11/20 at 14:45 Lorazepam (Ativan) 0.5 mg PRN Q4HRS PRN PO ANXIETY / AGITATION Last administered on 05/12/20at 09:51; Start 05/11/20 at 14:45 Lorazepam (Ativan Inj) 2 mg PRN Q4HRS PRN IV ANXIETY / AGITATION; Start 05/11/20 at 14:45 Enoxaparin Sodium (Lovenox 30mg Syringe) 30 mg Q24H SQ Last administered on 05/11/20at 16:44; Start 05/11/20 at 16:00 Active Scripts Active Reported Spironolactone 50 Mg Tablet 1 Tab PO BID Protonix (Pantoprazole Sodium) 20 Mg Tablet.dr 40 Mg PO DAILY Humalog (Insulin Lispro) 100 Unit/1 Ml Vial 100 Unit SQ QIDACHS Toprol XL (Metoprolol Succinate) 50 Mg Tab.er.24h 50 Mg PO DAILY Levemir (Insulin Detemir) 100 Unit/1 Ml Vial 5 Unit SQ HS Lasix (Furosemide) 20 Mg Tablet 60 Mg PO DAILY Probiotic (Lactobacillus Acidophilus) 1 Each Capsule 1 Each PO DAILY Fluoxetine Hcl 40 Mg Capsule 2 Cap PO HS Bupropion Xl (Bupropion Hcl) 300 Mg Tab.er.24h 1 Tab PO DAILY Allergies Allergies: Coded Allergies: Latex, Natural Rubber (Verified Allergy, Intermediate, 05/11/20) ROS Review of System Poor Historian, unable to Obtain details Physical Exam Physical Exam GENERAL: NAD HEEN Icterus +, OM dry NECK Supple LUNGS: decreased breath sounds.Non labored CARDIOVASCULAR: S1, S2 ABDOMEN: soft and distended EXTREMITIES: edema.+ No CVA or SP tenderness NEURO Confused, lethargic SKIN No Rash Vital Signs Vital Signs Date Time Temp Pulse Resp B/P (MAP) Pulse Ox O2 Delivery O2 Flow Rate FiO2 05/12/20 08:52 90 127/65 05/12/20 07:00 98.2 18 Nasal Cannula 4.0 98.2 05/12/20 03:34 95 Assessment & Plan BRISA - Pre-renal/Hepatorenal , Non Oliguric, Baseline not available to me , UA ?UTI . CT scan Kidneys unremarkable Supportive care, avoid nephrotoxins, strict I/O HypoNatremia - Improving Cirrhosis with a large amount of ascites - scheduled for paracentesis later today . Currently on Aldactone Acute hypoxic respiratory failure- PUI COPD Severe ETOH abuse -remote stopped 1977, Only Occasional now Enlarged right inguinal lymph node.// large right superficial inguinal lymph node measuring 3.7 cm in diameter. Diabetes GERD- on PPI Labs Labs Laboratory Tests Test 05/10/20 21:57 05/10/20 22:30 05/11/20 00:01 05/11/20 17:00 White Blood Count 10.0 x10^3/uL (4.0-11.0) Red Blood Count 3.45 x10^6/uL (3.50-5.40) Hemoglobin 12.0 g/dL (12.0-15.5) Hematocrit 34.8 % (36.0-47.0) Mean Corpuscular Volume 101 fL (79-100) Mean Corpuscular Hemoglobin 35 pg (25-35) Mean Corpuscular Hemoglobin Concent 34 g/dL (31-37) Red Cell Distribution Width 18.6 % (11.5-14.5) Platelet Count 212 x10^3/uL (140-400) Neutrophils (%) (Auto) 87 % (31-73) Lymphocytes (%) (Auto) 6 % (24-48) Monocytes (%) (Auto) 5 % (0-9) Eosinophils (%) (Auto) 1 % (0-3) Basophils (%) (Auto) 0 % (0-3) Neutrophils # (Auto) 8.8 x10^3/uL (1.8-7.7) Lymphocytes # (Auto) 0.6 x10^3/uL (1.0-4.8) Monocytes # (Auto) 0.5 x10^3/uL (0.0-1.1) Eosinophils # (Auto) 0.1 x10^3/uL (0.0-0.7) Basophils # (Auto) 0.0 x10^3/uL (0.0-0.2) Segmented Neutrophils % 89 % (35-66) Lymphocytes % 7 % (24-48) Monocytes % 4 % (0-10) Platelet Estimate Adequate (ADEQUATE) Polychromasia Slight Anisocytosis Slight Target Cells Occ Prothrombin Time 15.5 SEC (11.7-14.0) Prothromb Time International Ratio 1.3 (0.8-1.1) Activated Partial Thromboplast Time 30 SEC (24-38) Sodium Level 130 mmol/L (136-145) Potassium Level 4.6 mmol/L (3.5-5.1) Chloride Level 100 mmol/L (98-107) Carbon Dioxide Level 18 mmol/L (21-32) Anion Gap 12 (6-14) Blood Urea Nitrogen 36 mg/dL (7-20) Creatinine 2.1 mg/dL (0.6-1.0) Estimated GFR (Cockcroft-Gault) 23.7 BUN/Creatinine Ratio 17 (6-20) Glucose Level 211 mg/dL (70-99) Calcium Level 8.9 mg/dL (8.5-10.1) Magnesium Level 2.1 mg/dL (1.8-2.4) Total Bilirubin 2.9 mg/dL (0.2-1.0) Aspartate Amino Transf (AST/SGOT) 108 U/L (15-37) Alanine Aminotransferase (ALT/SGPT) 57 U/L (14-59) Alkaline Phosphatase 442 U/L (46-116) Ammonia 25 mcmol/L (11-34) Troponin I Quantitative < 0.017 ng/mL (0.000-0.055) ES-Rsh-I-Type Natriuretic Peptide 502 pg/mL (0-124) Total Protein 7.1 g/dL (6.4-8.2) Albumin 1.8 g/dL (3.4-5.0) Albumin/Globulin Ratio 0.3 (1.0-1.7) Lipase 612 U/L (73-393) Urine Collection Type U cath Urine Color Belia Urine Clarity Clear Urine pH 5.5 (<5.0-8.0) Urine Specific [place] 1.015 (1.000-1.030) Urine Protein Negative mg/dL (NEG-TRACE) Urine Glucose (UA) Negative mg/dL (NEG) Urine Ketones (Stick) Negative mg/dL (NEG) Urine Blood Negative (NEG) Urine Nitrite Negative (NEG) Urine Bilirubin Small (NEG) Urine Urobilinogen Dipstick 0.2 mg/dL (0.2 mg/dL) Urine Leukocyte Esterase Moderate (NEG) Urine RBC 0 /HPF (0-2) Urine WBC 5-10 /HPF (0-4) Urine Squamous Epithelial Cells Occ /LPF Urine Bacteria 0 /HPF (0-FEW) Urine Hyaline Casts Many /HPF Urine Mucus Marked /LPF Ethyl Alcohol Level < 10 mg/dL (0-10) Glucose (Fingerstick) 154 mg/dL (70-99) Test 05/11/20 20:00 05/12/20 07:27 05/12/20 08:15 05/12/20 08:35 Glucose (Fingerstick) 154 mg/dL (70-99) 196 mg/dL (70-99) White Blood Count 8.9 x10^3/uL (4.0-11.0) Red Blood Count 3.27 x10^6/uL (3.50-5.40) Hemoglobin 11.1 g/dL (12.0-15.5) Hematocrit 33.0 % (36.0-47.0) Mean Corpuscular Volume 101 fL (79-100) Mean Corpuscular Hemoglobin 34 pg (25-35) Mean Corpuscular Hemoglobin Concent 34 g/dL (31-37) Red Cell Distribution Width 18.8 % (11.5-14.5) Platelet Count 199 x10^3/uL (140-400) Neutrophils (%) (Auto) 84 % (31-73) Lymphocytes (%) (Auto) 8 % (24-48) Monocytes (%) (Auto) 5 % (0-9) Eosinophils (%) (Auto) 2 % (0-3) Basophils (%) (Auto) 1 % (0-3) Neutrophils # (Auto) 7.4 x10^3/uL (1.8-7.7) Lymphocytes # (Auto) 0.7 x10^3/uL (1.0-4.8) Monocytes # (Auto) 0.5 x10^3/uL (0.0-1.1) Eosinophils # (Auto) 0.2 x10^3/uL (0.0-0.7) Basophils # (Auto) 0.1 x10^3/uL (0.0-0.2) Sodium Level 134 mmol/L (136-145) Potassium Level 4.1 mmol/L (3.5-5.1) Chloride Level 102 mmol/L (98-107) Carbon Dioxide Level 20 mmol/L (21-32) Anion Gap 12 (6-14) Blood Urea Nitrogen 35 mg/dL (7-20) Creatinine 2.1 mg/dL (0.6-1.0) Estimated GFR (Cockcroft-Gault) 23.7 BUN/Creatinine Ratio 17 (6-20) Glucose Level 183 mg/dL (70-99) Calcium Level 8.6 mg/dL (8.5-10.1) Total Bilirubin 2.9 mg/dL (0.2-1.0) Aspartate Amino Transf (AST/SGOT) 79 U/L (15-37) Alanine Aminotransferase (ALT/SGPT) 48 U/L (14-59) Alkaline Phosphatase 384 U/L (46-116) Total Protein 6.5 g/dL (6.4-8.2) Albumin 1.7 g/dL (3.4-5.0) Albumin/Globulin Ratio 0.4 (1.0-1.7) Lipase 460 U/L (73-393) SARS-CoV-2 Antigen (Rapid) Negative (NEGATIVE) Laboratory Tests Test 05/11/20 17:00 05/11/20 20:00 05/12/20 07:27 05/12/20 08:15 Glucose (Fingerstick) 154 mg/dL (70-99) 154 mg/dL (70-99) 196 mg/dL (70-99) White Blood Count 8.9 x10^3/uL (4.0-11.0) Red Blood Count 3.27 x10^6/uL (3.50-5.40) Hemoglobin 11.1 g/dL (12.0-15.5) Hematocrit 33.0 % (36.0-47.0) Mean Corpuscular Volume 101 fL (79-100) Mean Corpuscular Hemoglobin 34 pg (25-35) Mean Corpuscular Hemoglobin Concent 34 g/dL (31-37) Red Cell Distribution Width 18.8 % (11.5-14.5) Platelet Count 199 x10^3/uL (140-400) Neutrophils (%) (Auto) 84 % (31-73) Lymphocytes (%) (Auto) 8 % (24-48) Monocytes (%) (Auto) 5 % (0-9) Eosinophils (%) (Auto) 2 % (0-3) Basophils (%) (Auto) 1 % (0-3) Neutrophils # (Auto) 7.4 x10^3/uL (1.8-7.7) Lymphocytes # (Auto) 0.7 x10^3/uL (1.0-4.8) Monocytes # (Auto) 0.5 x10^3/uL (0.0-1.1) Eosinophils # (Auto) 0.2 x10^3/uL (0.0-0.7) Basophils # (Auto) 0.1 x10^3/uL (0.0-0.2) Sodium Level 134 mmol/L (136-145) Potassium Level 4.1 mmol/L (3.5-5.1) Chloride Level 102 mmol/L (98-107) Carbon Dioxide Level 20 mmol/L (21-32) Anion Gap 12 (6-14) Blood Urea Nitrogen 35 mg/dL (7-20) Creatinine 2.1 mg/dL (0.6-1.0) Estimated GFR (Cockcroft-Gault) 23.7 BUN/Creatinine Ratio 17 (6-20) Glucose Level 183 mg/dL (70-99) Calcium Level 8.6 mg/dL (8.5-10.1) Total Bilirubin 2.9 mg/dL (0.2-1.0) Aspartate Amino Transf (AST/SGOT) 79 U/L (15-37) Alanine Aminotransferase (ALT/SGPT) 48 U/L (14-59) Alkaline Phosphatase 384 U/L (46-116) Total Protein 6.5 g/dL (6.4-8.2) Albumin 1.7 g/dL (3.4-5.0) Albumin/Globulin Ratio 0.4 (1.0-1.7) Lipase 460 U/L (73-393) Test 05/12/20 08:35 SARS-CoV-2 Antigen (Rapid) Negative (NEGATIVE) Review All relevant outside records, renal labs, imaging studies, telemetry/EKG's were reviewed. Images Images CT abdomen-- ADRENALS: Unremarkable KIDNEYS & URETERS: Unremarkable BLADDER: Unremarkable REPRODUCTIVE ORGANS: Unremarkable GASTROINTESTINAL: The stomach, small bowel, and colon are unremarkable. The appendix is not well seen but there are no findings of acute appendicitis MESENTERY/PERITONEUM/RETROPERITONEUM: There is a large amount of free intraperitoneal fluid. No free air. VASCULAR: Scattered arterial calcifications. No aneurysm of the abdominal aorta. LYMPH NODES: There is a large right superficial inguinal lymph node measuring 3.7 cm in diameter. Otherwise, no adenopathy is identified. OSSEOUS & SOFT TISSUES: Chronic appearing superior endplate compression deformity at L1 and posterior decompression at L3 and L4 with hetal and pedicle screw construct posterior fusion noted. No acute fracture or aggressive appearing osseous lesions seen. IMPRESSION: Cirrhosis with a large amount of ascites and an enlarged right inguinal lymph node. Recommend clinical follow-up for right inguinal adenopathy with possible eventual tissue sampling if clinically appropriate. LEIDY KAUFMAN MD May 12, 2020 10:07
--- NOTE | 2020-05-12 10:10 | PDOC ---
Date of Service: DATE: 05/12/20 TIME: 10:03 Subjective: Subjective: Wants the railings down on her bed because she has an appointment at 5:00. Says she's at [facility] and the year is 2019. Objective: Objective: D/w nurse - confused, awaiting paracentesis. Vital Signs: Vital Signs Date Time Temp Pulse Resp B/P (MAP) Pulse Ox O2 Delivery O2 Flow Rate FiO2 05/12/20 08:52 90 127/65 05/12/20 07:00 98.2 18 Nasal Cannula 4.0 98.2 05/12/20 03:34 95 Labs: Laboratory Tests Test 05/11/20 17:00 05/11/20 20:00 05/12/20 07:27 05/12/20 08:15 Glucose (Fingerstick) 154 mg/dL 154 mg/dL 196 mg/dL White Blood Count 8.9 x10^3/uL Red Blood Count 3.27 x10^6/uL Hemoglobin 11.1 g/dL Hematocrit 33.0 % Mean Corpuscular Volume 101 fL Mean Corpuscular Hemoglobin 34 pg Mean Corpuscular Hemoglobin Concent 34 g/dL Red Cell Distribution Width 18.8 % Platelet Count 199 x10^3/uL Neutrophils (%) (Auto) 84 % Lymphocytes (%) (Auto) 8 % Monocytes (%) (Auto) 5 % Eosinophils (%) (Auto) 2 % Basophils (%) (Auto) 1 % Neutrophils # (Auto) 7.4 x10^3/uL Lymphocytes # (Auto) 0.7 x10^3/uL Monocytes # (Auto) 0.5 x10^3/uL Eosinophils # (Auto) 0.2 x10^3/uL Basophils # (Auto) 0.1 x10^3/uL Sodium Level 134 mmol/L Potassium Level 4.1 mmol/L Chloride Level 102 mmol/L Carbon Dioxide Level 20 mmol/L Anion Gap 12 Blood Urea Nitrogen 35 mg/dL Creatinine 2.1 mg/dL Estimated GFR (Cockcroft-Gault) 23.7 BUN/Creatinine Ratio 17 Glucose Level 183 mg/dL Calcium Level 8.6 mg/dL Total Bilirubin 2.9 mg/dL Aspartate Amino Transf (AST/SGOT) 79 U/L Alanine Aminotransferase (ALT/SGPT) 48 U/L Alkaline Phosphatase 384 U/L Total Protein 6.5 g/dL Albumin 1.7 g/dL Albumin/Globulin Ratio 0.4 Lipase 460 U/L Test 05/12/20 08:35 SARS-CoV-2 Antigen (Rapid) Negative PE: GEN: NAD - a few bites taken from breakfast tray LUNGS: diminished 4L NC HEART: RRR ABD: distended/ascites/tight NEURO/PSYCH: pleasantly confused A/P: Cirrhosis, ascites, right inguinal lymphadenopathy Macrocytic anemia, mild coagulopathy, ?BRISA (Cr stable 2.1), elevated LFTs, mildly elevated lipase (normal pancreas on CT, s/p sophia) Confusion - normal ammonia Rapid COVID negative 05/12 -- Await paracentesis and fluid studies. AFP and [id number] pending, along w/ renal opinion. Will follow. Justicifation of Admission Dx: Justifications for Admission: Justification of Admission Dx: Yes MANISH CUELLO May 12, 2020 10:10
[2020-05-12] MEDS ORDERED: LIDOCAINE WITH 8.4% SOD BICARB 3 ML DISP.SYRIN. ONE (14:25)
--- NOTE | 2020-05-12 15:12 | NUR ---
SW following for discharge planning. Spoke with RN and reviewed chart. Pt resides in LTC at [facility] in [place]. Pt currently on 6l 02, IV Rocephin, COVID negative. Spoke with Enedelia to coordinate care. PT recommendation is SNU on discharge. Clinicals faxed. SW following.
[2020-05-12] MEDS ORDERED: ALBUMIN HUMAN 25% 100 ML IV ONE ×3 (15:27→15:45)
[2020-05-12] MEDS: ENOXAPARIN 30 MG/0.3 ML SYRINGE. SQ SCH (15:58)
--- NOTE | 2020-05-12 16:10 | RAD ---
Ultrasound-guided paracentesis 05/12/2020 2:07 PM Procedure: The risks and benefits of the procedure were discussed the patient. Informed consent was obtained. A timeout procedure was performed. Sonographic evaluation of the abdomen was performed demonstrating ascites . The right lower quadrant was prepped and draped using maximum sterile barrier technique. 1% lidocaine without epinephrine was administered for local anesthesia. Real-time ultrasonographic guidance was used in passing a 5 Danish Yueh catheter into the fluid collection. 7.7 L of serous ascites was removed. The catheter was removed and pressure held to achieve hemostasis. A sterile dressing was applied. Impression: Successful ultrasound-guided paracentesis
[2020-05-12] MEDS: cefTRIAXone IV Push 1 GM VIAL. IVP SCH (16:40)
--- NOTE | 2020-05-12 17:34 | PDOC ---
PROGRESS NOTES Date of Service: DATE: 05/12/20 TIME: 17:28 Chief Complaint Chief Complaint Acute metabolic encephalopathy Chronic lung disease with no acute superimposed process. 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 Chronic appearing superior endplate compression deformity at L1 and posterior decompression at L3 and L4 with hetal and pedicle screw construct posterior fusion pt/ot hyponatremia, HYPOVOLEMIC [facility] NEPHROLOGY CONSULT appreciated diabetes SS INSULIN GERD PROTONIX TOBACCO ABUSE DISORDER Cessation education provided serial LFTS/ammonia level therapeutic paracentesis with fluid analysis History of Present Illness History of Present Illness ADMIT DATE: 05/11/2020 ADMISSION HISTORY CHIEF COMPLAINT: Abdominal pain and shortness of air, ascites seen on CT. HISTORY OF PRESENT ILLNESS: This is a 65-year-old female with a remote history of alcohol abuse, was seen in the ER after transfer from [facility] for abdominal pain and shortness of breath. She states that her abdomen is distended and she was having some trouble breathing. Denies cough or fever. When seen in the ER, she had evidence of moderate ascites, also enlarged inguinal lymph node present. She has a long history of smoking. She states she stopped drinking heavily in 1977, but still drinks occasionally. She was found to have a large superficial lymph node measuring 3.78 cm in diameter in the right inguinal region 05/12/2020 Patient pleasantly confused. She wants her oxygen saturation removed from her finger. Oriented in person but not really in situation or place or time. Hemodynamically stable, awaiting for paracentesis Vitals Vitals Vital Signs Date Time Temp Pulse Resp B/P (MAP) Pulse Ox O2 Delivery O2 Flow Rate FiO2 05/12/20 15:18 75 99/51 (67) 96 Nasal Cannula 6.0 05/12/20 11:00 97.5 19 97.5 Physical Exam Physical Exam GENERAL: Mildly confused, well nourished, in no acute distress. HEENT: Throat and pharynx are clear. Extraocular muscles are intact. Visual [place] are full to confrontation. She does have some jaundice present., scleral icteric NECK: Supple, without stridor or JVD. CARDIOVASCULAR: Regular rate without murmur, S3 or S4. LUNGS: Clear to auscultation. ABDOMEN: Soft, moderate distention, diffuse tenderness to palpation. I am not able to appreciate ascites fluid wave. SKIN: Warm and dry. BACK: Without CVA tenderness. EXTREMITIES: No clubbing, cyanosis or edema. NEUROLOGIC: Alert but confused, disoriented to place. No focal deficits are present. Muscles of mastication are symmetric bilaterally. Affect is normal. Mood is normal. She is confused to details. General: Alert, Cooperative, No acute distress Extremities: No cyanosis Labs LABS Laboratory Tests Test 05/11/20 20:00 05/12/20 07:27 05/12/20 08:15 05/12/20 08:35 Glucose (Fingerstick) 154 mg/dL (70-99) 196 mg/dL (70-99) White Blood Count 8.9 x10^3/uL (4.0-11.0) Red Blood Count 3.27 x10^6/uL (3.50-5.40) Hemoglobin 11.1 g/dL (12.0-15.5) Hematocrit 33.0 % (36.0-47.0) Mean Corpuscular Volume 101 fL (79-100) Mean Corpuscular Hemoglobin 34 pg (25-35) Mean Corpuscular Hemoglobin Concent 34 g/dL (31-37) Red Cell Distribution Width 18.8 % (11.5-14.5) Platelet Count 199 x10^3/uL (140-400) Neutrophils (%) (Auto) 84 % (31-73) Lymphocytes (%) (Auto) 8 % (24-48) Monocytes (%) (Auto) 5 % (0-9) Eosinophils (%) (Auto) 2 % (0-3) Basophils (%) (Auto) 1 % (0-3) Neutrophils # (Auto) 7.4 x10^3/uL (1.8-7.7) Lymphocytes # (Auto) 0.7 x10^3/uL (1.0-4.8) Monocytes # (Auto) 0.5 x10^3/uL (0.0-1.1) Eosinophils # (Auto) 0.2 x10^3/uL (0.0-0.7) Basophils # (Auto) 0.1 x10^3/uL (0.0-0.2) Sodium Level 134 mmol/L (136-145) Potassium Level 4.1 mmol/L (3.5-5.1) Chloride Level 102 mmol/L (98-107) Carbon Dioxide Level 20 mmol/L (21-32) Anion Gap 12 (6-14) Blood Urea Nitrogen 35 mg/dL (7-20) Creatinine 2.1 mg/dL (0.6-1.0) Estimated GFR (Cockcroft-Gault) 23.7 BUN/Creatinine Ratio 17 (6-20) Glucose Level 183 mg/dL (70-99) Calcium Level 8.6 mg/dL (8.5-10.1) Total Bilirubin 2.9 mg/dL (0.2-1.0) Aspartate Amino Transf (AST/SGOT) 79 U/L (15-37) Alanine Aminotransferase (ALT/SGPT) 48 U/L (14-59) Alkaline Phosphatase 384 U/L (46-116) Total Protein 6.5 g/dL (6.4-8.2) Albumin 1.7 g/dL (3.4-5.0) Albumin/Globulin Ratio 0.4 (1.0-1.7) Lipase 460 U/L (73-393) Hepatitis A IgM Antibody Nonreactive (Nonreactive) Hepatitis B Surface Antigen Nonreactive (Nonreactive) Hepatitis B Core IgM Antibody Nonreactive (Nonreactive) Hepatitis C IgG Antibody Reactive (Nonreactive) SARS-CoV-2 Antigen (Rapid) Negative (NEGATIVE) Test 05/12/20 11:15 05/12/20 15:00 05/12/20 16:18 Glucose (Fingerstick) 230 mg/dL (70-99) 223 mg/dL (70-99) Body Fluid pH 7.03 Review of Systems Review of Systems Review of systems pertinent as per HPI otherwise 14 point review of system is negative Assessment and Plan Assessmemt and Plan Problems Medical Problems: (1) Abdominal pain Status: Acute (2) Ascites Status: Acute Comment Review of Relevant I have reviewed the following items kelvin (where applicable) has been applied. Labs Laboratory Tests Test 05/10/20 21:57 05/10/20 22:30 05/11/20 00:01 05/11/20 00:11 White Blood Count 10.0 x10^3/uL (4.0-11.0) Red Blood Count 3.45 x10^6/uL (3.50-5.40) Hemoglobin 12.0 g/dL (12.0-15.5) Hematocrit 34.8 % (36.0-47.0) Mean Corpuscular Volume 101 fL (79-100) Mean Corpuscular Hemoglobin 35 pg (25-35) Mean Corpuscular Hemoglobin Concent 34 g/dL (31-37) Red Cell Distribution Width 18.6 % (11.5-14.5) Platelet Count 212 x10^3/uL (140-400) Neutrophils (%) (Auto) 87 % (31-73) Lymphocytes (%) (Auto) 6 % (24-48) Monocytes (%) (Auto) 5 % (0-9) Eosinophils (%) (Auto) 1 % (0-3) Basophils (%) (Auto) 0 % (0-3) Neutrophils # (Auto) 8.8 x10^3/uL (1.8-7.7) Lymphocytes # (Auto) 0.6 x10^3/uL (1.0-4.8) Monocytes # (Auto) 0.5 x10^3/uL (0.0-1.1) Eosinophils # (Auto) 0.1 x10^3/uL (0.0-0.7) Basophils # (Auto) 0.0 x10^3/uL (0.0-0.2) Segmented Neutrophils % 89 % (35-66) Lymphocytes % 7 % (24-48) Monocytes % 4 % (0-10) Platelet Estimate Adequate (ADEQUATE) Polychromasia Slight Anisocytosis Slight Target Cells Occ Prothrombin Time 15.5 SEC (11.7-14.0) Prothromb Time International Ratio 1.3 (0.8-1.1) Activated Partial Thromboplast Time 30 SEC (24-38) Sodium Level 130 mmol/L (136-145) Potassium Level 4.6 mmol/L (3.5-5.1) Chloride Level 100 mmol/L (98-107) Carbon Dioxide Level 18 mmol/L (21-32) Anion Gap 12 (6-14) Blood Urea Nitrogen 36 mg/dL (7-20) Creatinine 2.1 mg/dL (0.6-1.0) Estimated GFR (Cockcroft-Gault) 23.7 BUN/Creatinine Ratio 17 (6-20) Glucose Level 211 mg/dL (70-99) Calcium Level 8.9 mg/dL (8.5-10.1) Magnesium Level 2.1 mg/dL (1.8-2.4) Total Bilirubin 2.9 mg/dL (0.2-1.0) Aspartate Amino Transf (AST/SGOT) 108 U/L (15-37) Alanine Aminotransferase (ALT/SGPT) 57 U/L (14-59) Alkaline Phosphatase 442 U/L (46-116) Ammonia 25 mcmol/L (11-34) Troponin I Quantitative < 0.017 ng/mL (0.000-0.055) WM-Aub-R-Type Natriuretic Peptide 502 pg/mL (0-124) Total Protein 7.1 g/dL (6.4-8.2) Albumin 1.8 g/dL (3.4-5.0) Albumin/Globulin Ratio 0.3 (1.0-1.7) Lipase 612 U/L (73-393) Tumor Marker Alpha Fetoprotein 2.0 ng/mL (0.0-8.3) Urine Collection Type U cath Urine Color Belia Urine Clarity Clear Urine pH 5.5 (<5.0-8.0) Urine Specific [place] 1.015 (1.000-1.030) Urine Protein Negative mg/dL (NEG-TRACE) Urine Glucose (UA) Negative mg/dL (NEG) Urine Ketones (Stick) Negative mg/dL (NEG) Urine Blood Negative (NEG) Urine Nitrite Negative (NEG) Urine Bilirubin Small (NEG) Urine Urobilinogen Dipstick 0.2 mg/dL (0.2 mg/dL) Urine Leukocyte Esterase Moderate (NEG) Urine RBC 0 /HPF (0-2) Urine WBC 5-10 /HPF (0-4) Urine Squamous Epithelial Cells Occ /LPF Urine Bacteria 0 /HPF (0-FEW) Urine Hyaline Casts Many /HPF Urine Mucus Marked /LPF Ethyl Alcohol Level < 10 mg/dL (0-10) Coronavirus (PCR) Not detected (Not Detected) Test 05/11/20 17:00 05/11/20 20:00 05/12/20 07:27 05/12/20 08:15 Glucose (Fingerstick) 154 mg/dL (70-99) 154 mg/dL (70-99) 196 mg/dL (70-99) White Blood Count 8.9 x10^3/uL (4.0-11.0) Red Blood Count 3.27 x10^6/uL (3.50-5.40) Hemoglobin 11.1 g/dL (12.0-15.5) Hematocrit 33.0 % (36.0-47.0) Mean Corpuscular Volume 101 fL (79-100) Mean Corpuscular Hemoglobin 34 pg (25-35) Mean Corpuscular Hemoglobin Concent 34 g/dL (31-37) Red Cell Distribution Width 18.8 % (11.5-14.5) Platelet Count 199 x10^3/uL (140-400) Neutrophils (%) (Auto) 84 % (31-73) Lymphocytes (%) (Auto) 8 % (24-48) Monocytes (%) (Auto) 5 % (0-9) Eosinophils (%) (Auto) 2 % (0-3) Basophils (%) (Auto) 1 % (0-3) Neutrophils # (Auto) 7.4 x10^3/uL (1.8-7.7) Lymphocytes # (Auto) 0.7 x10^3/uL (1.0-4.8) Monocytes # (Auto) 0.5 x10^3/uL (0.0-1.1) Eosinophils # (Auto) 0.2 x10^3/uL (0.0-0.7) Basophils # (Auto) 0.1 x10^3/uL (0.0-0.2) Sodium Level 134 mmol/L (136-145) Potassium Level 4.1 mmol/L (3.5-5.1) Chloride Level 102 mmol/L (98-107) Carbon Dioxide Level 20 mmol/L (21-32) Anion Gap 12 (6-14) Blood Urea Nitrogen 35 mg/dL (7-20) Creatinine 2.1 mg/dL (0.6-1.0) Estimated GFR (Cockcroft-Gault) 23.7 BUN/Creatinine Ratio 17 (6-20) Glucose Level 183 mg/dL (70-99) Calcium Level 8.6 mg/dL (8.5-10.1) Total Bilirubin 2.9 mg/dL (0.2-1.0) Aspartate Amino Transf (AST/SGOT) 79 U/L (15-37) Alanine Aminotransferase (ALT/SGPT) 48 U/L (14-59) Alkaline Phosphatase 384 U/L (46-116) Total Protein 6.5 g/dL (6.4-8.2) Albumin 1.7 g/dL (3.4-5.0) Albumin/Globulin Ratio 0.4 (1.0-1.7) Lipase 460 U/L (73-393) Hepatitis A IgM Antibody Nonreactive (Nonreactive) Hepatitis B Surface Antigen Nonreactive (Nonreactive) Hepatitis B Core IgM Antibody Nonreactive (Nonreactive) Hepatitis C IgG Antibody Reactive (Nonreactive) Test 05/12/20 08:35 05/12/20 11:15 05/12/20 15:00 05/12/20 16:18 SARS-CoV-2 Antigen (Rapid) Negative (NEGATIVE) Glucose (Fingerstick) 230 mg/dL (70-99) 223 mg/dL (70-99) Body Fluid pH 7.03 Laboratory Tests Test 05/11/20 20:00 05/12/20 07:27 05/12/20 08:15 05/12/20 08:35 Glucose (Fingerstick) 154 mg/dL (70-99) 196 mg/dL (70-99) White Blood Count 8.9 x10^3/uL (4.0-11.0) Red Blood Count 3.27 x10^6/uL (3.50-5.40) Hemoglobin 11.1 g/dL (12.0-15.5) Hematocrit 33.0 % (36.0-47.0) Mean Corpuscular Volume 101 fL (79-100) Mean Corpuscular Hemoglobin 34 pg (25-35) Mean Corpuscular Hemoglobin Concent 34 g/dL (31-37) Red Cell Distribution Width 18.8 % (11.5-14.5) Platelet Count 199 x10^3/uL (140-400) Neutrophils (%) (Auto) 84 % (31-73) Lymphocytes (%) (Auto) 8 % (24-48) Monocytes (%) (Auto) 5 % (0-9) Eosinophils (%) (Auto) 2 % (0-3) Basophils (%) (Auto) 1 % (0-3) Neutrophils # (Auto) 7.4 x10^3/uL (1.8-7.7) Lymphocytes # (Auto) 0.7 x10^3/uL (1.0-4.8) Monocytes # (Auto) 0.5 x10^3/uL (0.0-1.1) Eosinophils # (Auto) 0.2 x10^3/uL (0.0-0.7) Basophils # (Auto) 0.1 x10^3/uL (0.0-0.2) Sodium Level 134 mmol/L (136-145) Potassium Level 4.1 mmol/L (3.5-5.1) Chloride Level 102 mmol/L (98-107) Carbon Dioxide Level 20 mmol/L (21-32) Anion Gap 12 (6-14) Blood Urea Nitrogen 35 mg/dL (7-20) Creatinine 2.1 mg/dL (0.6-1.0) Estimated GFR (Cockcroft-Gault) 23.7 BUN/Creatinine Ratio 17 (6-20) Glucose Level 183 mg/dL (70-99) Calcium Level 8.6 mg/dL (8.5-10.1) Total Bilirubin 2.9 mg/dL (0.2-1.0) Aspartate Amino Transf (AST/SGOT) 79 U/L (15-37) Alanine Aminotransferase (ALT/SGPT) 48 U/L (14-59) Alkaline Phosphatase 384 U/L (46-116) Total Protein 6.5 g/dL (6.4-8.2) Albumin 1.7 g/dL (3.4-5.0) Albumin/Globulin Ratio 0.4 (1.0-1.7) Lipase 460 U/L (73-393) Hepatitis A IgM Antibody Nonreactive (Nonreactive) Hepatitis B Surface Antigen Nonreactive (Nonreactive) Hepatitis B Core IgM Antibody Nonreactive (Nonreactive) Hepatitis C IgG Antibody Reactive (Nonreactive) SARS-CoV-2 Antigen (Rapid) Negative (NEGATIVE) Test 05/12/20 11:15 05/12/20 15:00 05/12/20 16:18 Glucose (Fingerstick) 230 mg/dL (70-99) 223 mg/dL (70-99) Body Fluid pH 7.03 Microbiology 05/11/20 Blood Culture - Preliminary, Resulted NO GROWTH AFTER 1 DAY 05/10/20 Urine Culture - Preliminary, Resulted Medications Current Medications Lorazepam (Ativan Inj) 1 mg 1X ONCE IVP Last administered on 05/11/20at 00:29; Start 05/11/20 at 00:30; Stop 05/11/20 at 00:31; Status DC Ondansetron HCl (Zofran) 4 mg PRN Q8HRS PRN IV NAUSEA/VOMITING 1ST CHOICE; Start 05/11/20 at 00:45; Stop 05/11/20 at 14:59; Status DC Morphine Sulfate (Morphine Sulfate) 4 mg PRN Q2HR PRN IV SEVERE PAIN 7-10; Start 05/11/20 at 00:45; Stop 05/12/20 at 00:44; Status DC Furosemide (Lasix) 60 mg DAILY PO Last administered on 05/12/20at 08:50; Start 05/11/20 at 15:00 Metoprolol Succinate (Toprol Xl) 50 mg DAILY PO Last administered on 05/12/20at 08:52; Start 05/11/20 at 15:00 Bupropion HCl (Wellbutrin Xl) 300 mg DAILY PO Last administered on 05/12/20at 08:48; Start 05/11/20 at 15:00 Fluoxetine HCl (PROzac) 80 mg HS PO Last administered on 05/11/20at 21:05; Start 05/11/20 at 21:00 Insulin Glargine (Lantus Syringe) 5 unit QHS SQ ; Start 05/11/20 at 21:00; Stop 05/11/20 at 14:33; Status DC Lactobacillus Rhamnosus (Culturelle) 1 cap DAILY PO Last administered on 05/12/20at 08:52; Start 05/11/20 at 15:00 Pantoprazole Sodium (Protonix) 40 mg DAILYAC PO Last administered on 05/12/20at 08:52; Start 05/11/20 at 15:00 Spironolactone (Aldactone) 50 mg BID PO Last administered on 05/12/20at 08:53; Start 05/11/20 at 15:00 Insulin Glargine (Lantus Syringe) 10 unit QHS SQ ; Start 05/11/20 at 21:00 Insulin Human Lispro (HumaLOG) 0-5 UNITS TIDWMEALS SQ Last administered on 05/12/20at 17:20; Start 05/11/20 at 17:00 Dextrose (Dextrose 50%-Water Syringe) 12.5 gm PRN Q15MIN PRN IV SEE COMMENTS; Start 05/11/20 at 14:45 Ceftriaxone Sodium (Rocephin) 1 gm Q24H IVP Last administered on 05/12/20at 16:40; Start 05/11/20 at 15:00 Sodium Chloride (Normal Saline Flush) 3 ml QSHIFT PRN IV AFTER MEDS AND BLOOD DRAWS; Start 05/11/20 at 14:45 Sodium Chloride 1,000 ml @ 75 mls/hr [id number] IV Last administered on 05/12/20at 09:51; Start 05/11/20 at 14:45 Ondansetron HCl (Zofran) 4 mg PRN Q4HRS PRN IV NAUSEA/VOMITING; Start 05/11/20 at 14:45 Acetaminophen (Tylenol) 650 mg PRN Q4HRS PRN PO TEMP OVER 100.4F OR MILD PAIN; Start 05/11/20 at 14:45 Sodium Monofluorophosphate (Fleet Adult) 133 ml PRN DAILY PRN NM CONSTIPATION; Start 05/11/20 at 14:45 Diphenhydramine HCl (Benadryl) 25 mg PRN Q4HRS PRN IVP ITCHING Last adminis tered on 05/11/20at 21:05; Start 05/11/20 at 14:45 Docusate Sodium (Colace) 100 mg PRN BID PRN PO HARD STOOLS; Start 05/11/20 at 14:45 Albuterol Sulfate (Ventolin Neb Soln) 2.5 mg PRN Q4HRS PRN NEB SHORTNESS OF BREATH; Start 05/11/20 at 14:45 Albuterol/ Ipratropium (Duoneb) 3 ml PRN Q4HRS PRN NEB SHORTNESS OF BREATH; Start 05/11/20 at 14:45 Guaifenesin (Robitussin) 200 mg PRN Q4HRS PRN PO COUGH; Start 05/11/20 at 14:45 Lorazepam (Ativan) 0.5 mg PRN Q4HRS PRN PO ANXIETY / AGITATION Last administered on 05/12/20at 09:51; Start 05/11/20 at 14:45 Lorazepam (Ativan Inj) 2 mg PRN Q4HRS PRN IV ANXIETY / AGITATION; Start 05/11/20 at 14:45 Enoxaparin Sodium (Lovenox 30mg Syringe) 30 mg Q24H SQ Last administered on 05/11/20at 16:44; Start 05/11/20 at 16:00 Lidocaine HCl (Buffered Lidocaine 1%) 3 ml STK-MED ONCE .ROUTE ; Start 05/12/20 at 14:25; Stop 05/12/20 at 14:25; Status DC Albumin Human 100 ml @ As Directed STK-MED ONCE IV ; Start 05/12/20 at 15:27; Stop 05/12/20 at 15:27; Status DC Albumin Human 100 ml @ 100 mls/hr 1X ONCE IV Last administered on 05/12/20at 15:40; Start 05/12/20 at 15:45; Stop 05/12/20 at 16:44; Status DC Albumin Human 100 ml @ 100 mls/hr 1X ONCE IV Last administered on 05/12/20at 16:41; Start 05/12/20 at 15:45; Stop 05/12/20 at 16:44; Status DC Active Scripts Active Reported Spironolactone 50 Mg Tablet 1 Tab PO BID Protonix (Pantoprazole Sodium) 20 Mg Tablet.dr 40 Mg PO DAILY Humalog (Insulin Lispro) 100 Unit/1 Ml Vial 100 Unit SQ QIDACHS Toprol XL (Metoprolol Succinate) 50 Mg Tab.er.24h 50 Mg PO DAILY Levemir (Insulin Detemir) 100 Unit/1 Ml Vial 5 Unit SQ HS Lasix (Furosemide) 20 Mg Tablet 60 Mg PO DAILY Probiotic (Lactobacillus Acidophilus) 1 Each Capsule 1 Each PO DAILY Fluoxetine Hcl 40 Mg Capsule 2 Cap PO HS Bupropion Xl (Bupropion Hcl) 300 Mg Tab.er.24h 1 Tab PO DAILY Vitals/I & O Vital Sign - Last 24 Hours 05/11/20 05/11/20 05/11/20 05/12/20 19:47 20:00 23:37 03:34 Temp 98.4 98.0 97.7 98.4 98.0 97.7 Pulse 83 77 71 Resp 16 16 16 B/P (MAP) 129/78 (95) 122/62 (82) 119/66 (83) Pulse Ox 93 90 95 O2 Delivery Nasal Cannula Nasal Cannula Nasal Cannula Nasal Cannula O2 Flow Rate 4.0 3.0 4.0 4.0 05/12/20 05/12/20 05/12/20 05/12/20 07:00 08:00 08:52 11:00 Temp 98.2 97.5 98.2 97.5 Pulse 90 90 75 Resp 18 19 B/P (MAP) 127/65 (85) 127/65 111/87 (95) Pulse Ox 92 O2 Delivery Nasal Cannula Nasal Cannula Nasal Cannula O2 Flow Rate 4.0 4.0 4.0 05/12/20 05/12/20 14:59 15:18 Pulse 73 75 B/P (MAP) 109/59 (76) 99/51 (67) Pulse Ox 98 96 O2 Delivery Nasal Cannula Nasal Cannula O2 Flow Rate 6.0 6.0 Intake and Output 05/11/20 05/11/20 05/12/20 15:00 23:00 07:00 Intake Total 400 ml 240 ml 300 ml Output Total 0 ml Balance 400 ml 240 ml 300 ml Justicifation of Admission Dx: Justifications for Admission: Justification of Admission Dx: Yes CASA DIAZ MD May 12, 2020 17:34
[2020-05-12] MEDS: FLUoxetine HCL 20 MG CAPSULE PO SCH (22:14)
[2020-05-12] MEDS: INSULIN GLARGINE SYRINGE. SQ SCH (22:15)
[2020-05-13] MEDS: LORazepam 0.5 MG TABLET PO PRN (02:57)
[2020-05-13 03:00] VITALS: BP 94/57
[2020-05-13] MEDS: IV NORMAL SALINE 1000ML BAG 1,000 ML IV SCH ×2 (06:45→22:14)
[2020-05-13 07:00] VITALS: BP 82/48
[2020-05-13] MEDS: INSULIN LISPRO 300 UNITS/3 ML VIAL. SQ SCH ×3 (08:00→17:00)
[2020-05-13] MEDS: FUROSEMIDE 40 MG TABLET. PO SCH (09:00)
[2020-05-13] MEDS: SPIRONOLACTONE 25 MG TABLET PO SCH ×2 (09:00→22:14)
[2020-05-13] MEDS: METOPROLOL SUCC 24HR ER 50 MG TAB.ER.24H. PO SCH (09:00)
[2020-05-13] MEDS: buPROPion XL 150 MG TAB.ER.24H. PO SCH (09:57)
[2020-05-13] MEDS: PANTOPRAZOLE 40 MG TABLET.DR. PO SCH (09:57)
[2020-05-13] MEDS: LACTOBACILLUS RHAMNOSUS GG 1 CAPSULE. PO SCH (09:57)
--- NOTE | 2020-05-13 10:37 | PDOC ---
DATE OF SERVICE DATE: 05/13/20 TIME: 10:37 SUBJECTIVE ROS stable, OBJECTIVE Vital Signs Vital Signs Date Time Temp Pulse Resp B/P (MAP) Pulse Ox O2 Delivery O2 Flow Rate FiO2 05/13/20 09:00 71 82/48 05/13/20 07:00 97.1 18 90 Nasal Cannula 4.0 97.1 I & 0 Intake and Output 05/13/20 07:00 Intake Total 840 ml Output Total 7700 ml Balance -6860 ml Intake Oral 840 ml Drainage Total 7700 ml # Voids 2 PHYSICAL EXAM Physical Exam GENERAL: NAD HEEN Icterus +, OM dry NECK Supple LUNGS: decreased breath sounds.Non labored CARDIOVASCULAR: S1, S2 ABDOMEN: soft and distended EXTREMITIES: edema.+ No CVA or SP tenderness NEURO Confused, lethargic SKIN No Rash DIAGNOSIS/ASSESSMENT Assessment & Plan [facility] - Pre-renal/Hepatorenal , Non Oliguric(per nursing, uop not recorded), Baseline not available to me , UA ?UTI . CT scan Kidneys unremarkable Improving renal function, Supportive care, avoid nephrotoxins, strict I/O HypoNatremia - resolved Cirrhosis with a large amount of ascites -s/p paracentesis 7.7 lts on 05/12 . Currently on Aldactone . GI managing Acute hypoxic respiratory failure- COVID negative COPD Severe ETOH abuse -remote stopped 1977, Only Occasional now Diabetes GERD- on PPI COMMENT/RELEVANT DATA Meds Current Medications Medications (Trade) Dose Ordered Sig/Jena Start Time Stop Time Status Last Admin Dose Admin Acetaminophen (Tylenol) 650 mg PRN Q4HRS PRN 05/11/20 14:45 Albumin Human 100 ml @ 100 mls/hr 1X ONCE 05/12/20 15:45 05/12/20 16:44 DC 05/12/20 16:41 100 MLS/HR Albuterol Sulfate (Ventolin Neb Soln) 2.5 mg PRN Q4HRS PRN 05/11/20 14:45 Albuterol/ Ipratropium (Duoneb) 3 ml PRN Q4HRS PRN 05/11/20 14:45 Bupropion HCl (Wellbutrin Xl) 300 mg DAILY 05/11/20 15:00 05/13/20 09:57 300 MG Ceftriaxone Sodium (Rocephin) 1 gm Q24H 05/11/20 15:00 05/12/20 16:40 1 GM Dextrose (Dextrose 50%-Water Syringe) 12.5 gm PRN Q15MIN PRN 05/11/20 14:45 Diphenhydramine HCl (Benadryl) 25 mg PRN Q4HRS PRN 05/11/20 14:45 05/11/20 21:05 25 MG Docusate Sodium (Colace) 100 mg PRN BID PRN 05/11/20 14:45 Enoxaparin Sodium (Lovenox 30mg Syringe) 30 mg Q24H 05/11/20 16:00 05/11/20 16:44 30 MG Fluoxetine HCl (PROzac) 80 mg HS 05/11/20 21:00 05/12/20 22:14 80 MG Furosemide (Lasix) 60 mg DAILY 05/11/20 15:00 05/12/20 08:50 60 MG Guaifenesin (Robitussin) 200 mg PRN Q4HRS PRN 05/11/20 14:45 Insulin Glargine (Lantus Syringe) 10 unit QHS 05/11/20 21:00 05/12/20 22:15 10 UNIT Insulin Human Lispro (HumaLOG) 0-5 UNITS TIDWMEALS 05/11/20 17:00 05/12/20 17:20 3 UNITS Lactobacillus Rhamnosus (Culturelle) 1 cap DAILY 05/11/20 15:00 05/13/20 09:57 1 CAP Lidocaine HCl (Buffered Lidocaine 1%) 3 ml STK-MED ONCE 05/12/20 14:25 05/12/20 14:25 DC Lorazepam (Ativan Inj) 2 mg PRN Q4HRS PRN 05/11/20 14:45 Lorazepam (Ativan) 0.5 mg PRN Q4HRS PRN 05/11/20 14:45 05/13/20 02:57 0.5 MG Metoprolol Succinate (Toprol Xl) 50 mg DAILY 05/11/20 15:00 05/12/20 08:52 50 MG Morphine Sulfate (Morphine Sulfate) 4 mg PRN Q2HR PRN 05/11/20 00:45 05/12/20 00:44 DC Ondansetron HCl (Zofran) 4 mg PRN Q4HRS PRN 05/11/20 14:45 Pantoprazole Sodium (Protonix) 40 mg DAILYAC 05/11/20 15:00 05/13/20 09:57 40 MG Sodium Monofluorophosphate (Fleet Adult) 133 ml PRN DAILY PRN 05/11/20 14:45 Sodium Chloride 1,000 ml @ 75 mls/hr [id number] 05/11/20 14:45 05/12/20 09:51 75 MLS/HR Sodium Chloride (Normal Saline Flush) 3 ml QSHIFT PRN 05/11/20 14:45 Spironolactone (Aldactone) 50 mg BID 05/11/20 15:00 05/12/20 22:15 50 MG Lab Laboratory Tests Test 05/12/20 11:15 05/12/20 15:00 05/12/20 16:18 05/12/20 20:47 Glucose (Fingerstick) 230 mg/dL (70-99) 223 mg/dL (70-99) 192 mg/dL (70-99) Body Fluid pH 7.03 Test 05/13/20 07:14 Glucose (Fingerstick) 152 mg/dL (70-99) Results All relevant outside records, renal labs, imaging studies, telemetry/EKG's were reviewed. Justicifation of Admission Dx: Justifications for Admission: Justification of Admission Dx: Yes LEIDY KAUFMAN MD May 13, 2020 10:37
[2020-05-13 11:00] VITALS: BP 71/44
--- NOTE | 2020-05-13 11:05 | PDOC ---
Date of Service: DATE: 05/13/20 TIME: 10:59 Subjective: Subjective: "I'll talk to you later, don't bother me." Objective: Objective: D/w nurse - still confused, didn't want breakfast. Vital Signs: Vital Signs Date Time Temp Pulse Resp B/P (MAP) Pulse Ox O2 Delivery O2 Flow Rate FiO2 05/13/20 09:00 71 82/48 05/13/20 07:00 97.1 18 90 Nasal Cannula 4.0 97.1 Labs: Laboratory Tests Test 05/12/20 11:15 05/12/20 15:00 05/12/20 16:18 05/12/20 20:47 Glucose (Fingerstick) 230 mg/dL 223 mg/dL 192 mg/dL Body Fluid pH 7.03 Test 05/13/20 07:14 Glucose (Fingerstick) 152 mg/dL URINE CULTURE Final Final 20,000 CFU/ML FINAL ID= [ENTEROCOCCUS FAECALIS] Imaging: Paracentesis 05/12 7.7L PE: GEN: NAD, resting LUNGS: diminished/poor effort, 4L NC HEART: RRR ABD: softer/less distended NEURO/PSYCH: drowsy, mumbling A/P: Cirrhosis, ascites s/p paracentesis, right inguinal lymphadenopathy ?BRISA, UTI Confusion - normal ammonia Hep C Ab + (PCR pending), h/o alcohol Rapid COVID negative 05/12 -- Labs pending. AFP normal, CA19-9 pending. Diuretics held. Will review w/ Dr. Wilson. Justicifation of Admission Dx: Justifications for Admission: Justification of Admission Dx: Yes MANISH CUELLO May 13, 2020 11:05
[2020-05-13 11:45] LABS: CREATININE 1.9 mg/dL (0.6-1.0); GFR 26.6; POTASSIUM 3.8 mmol/L (3.5-5.1)
[2020-05-13 11:49] LABS: ALBUMIN 2.2 g/dL (3.4-5.0); PHOSPHORUS 2.9 mg/dL (2.6-4.7)
--- NOTE | 2020-05-13 13:01 | PDOC ---
PROGRESS NOTES Date of Service: DATE: 05/13/20 TIME: 13:00 Chief Complaint Chief Complaint Acute metabolic encephalopathy Chronic lung disease with no acute superimposed process. 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 Chronic appearing superior endplate compression deformity at L1 and posterior decompression at L3 and L4 with hetal and pedicle screw construct posterior fusion pt/ot hyponatremia, HYPOVOLEMIC BRISA NEPHROLOGY CONSULT appreciated diabetes SS INSULIN GERD PROTONIX TOBACCO ABUSE DISORDER Cessation education provided serial LFTS/ammonia level therapeutic paracentesis with fluid analysis Ultrasound-guided paracentesis 05/12/2020 2:07 PM Procedure: The risks and benefits of the procedure were discussed the patient. Informed consent was obtained. A timeout procedure was performed. Sonographic evaluation of the abdomen was performed demonstrating ascites . The right lower quadrant was prepped and draped using maximum sterile barrier technique. 1% lidocaine without epinephrine was administered for local anesthesia. Real-time ultrasonographic guidance was used in passing a 5 [place] [employer] catheter into the fluid collection. 7.7 L of serous ascites was removed. The catheter was removed and pressure held to achieve hemostasis. A sterile dressing was applied. Impression: Successful ultrasound-guided paracentesis History of Present Illness History of Present Illness ADMIT DATE: 05/11/2020 ADMISSION HISTORY CHIEF COMPLAINT: Abdominal pain and shortness of air, ascites seen on CT. HISTORY OF PRESENT ILLNESS: This is a 65-year-old female with a remote history of alcohol abuse, was seen in the ER after transfer from [facility] for abdominal pain and shortness of breath. She states that her abdomen is distended and she was having some trouble breathing. Denies cough or fever. When seen in the ER, she had evidence of moderate ascites, also enlarged inguinal lymph node present. She has a long history of smoking. She states she stopped drinking heavily in 1977, but still drinks occasionally. She was found to have a large superficial lymph node measuring 3.78 cm in diameter in the right inguinal region 05/12/2020 Patient pleasantly confused. She wants her oxygen saturation removed from her finger. Oriented in person but not really in situation or place or time. Hemodynamically stable, awaiting for paracentesis 05/13/2020 No acute events reported overnight, case discussed with nursing staff patient in no acute distress no complaints during my visit still encephalopathic and unable to have a meaningful conversation she does not seem to be in acute distress no respiratory distress noted either. Vitals Vitals Vital Signs Date Time Temp Pulse Resp B/P (MAP) Pulse Ox O2 Delivery O2 Flow Rate FiO2 05/13/20 11:00 97.6 71 18 71/44 (53) 94 Nasal Cannula 4.0 97.6 Physical Exam Physical Exam GENERAL: Mildly confused, well nourished, in no acute distress. HEENT: Throat and pharynx are clear. Extraocular muscles are intact. Visual [place] are full to confrontation. She does have some jaundice present., scleral icteric NECK: Supple, without stridor or JVD. CARDIOVASCULAR: Regular rate without murmur, S3 or S4. LUNGS: Clear to auscultation. ABDOMEN: Soft, moderate distention, diffuse tenderness to palpation. I am not able to appreciate ascites fluid wave. SKIN: Warm and dry. BACK: Without CVA tenderness. EXTREMITIES: No clubbing, cyanosis or edema. NEUROLOGIC: Alert but confused, disoriented to place. No focal deficits are present. Muscles of mastication are symmetric bilaterally. Affect is normal. Mood is normal. She is confused to details. General: Alert, Cooperative, No acute distress Extremities: No cyanosis Labs LABS Laboratory Tests Test 05/12/20 15:00 05/12/20 16:18 05/12/20 20:47 05/13/20 07:14 Body Fluid pH 7.03 Glucose (Fingerstick) 223 mg/dL (70-99) 192 mg/dL (70-99) 152 mg/dL (70-99) Test 05/13/20 11:15 05/13/20 11:53 Sodium Level 137 mmol/L (136-145) Potassium Level 3.8 mmol/L (3.5-5.1) Chloride Level 105 mmol/L (98-107) Carbon Dioxide Level 23 mmol/L (21-32) Anion Gap 9 (6-14) Blood Urea Nitrogen 32 mg/dL (7-20) Creatinine 1.9 mg/dL (0.6-1.0) Estimated GFR (Cockcroft-Gault) 26.6 Glucose Level 125 mg/dL (70-99) Calcium Level 9.0 mg/dL (8.5-10.1) Phosphorus Level 2.9 mg/dL (2.6-4.7) Albumin 2.2 g/dL (3.4-5.0) Glucose (Fingerstick) 133 mg/dL (70-99) Assessment and Plan Assessmemt and Plan Problems Medical Problems: (1) Abdominal pain Status: Acute (2) Ascites Status: Acute Comment Review of Relevant I have reviewed the following items kelvin (where applicable) has been applied. Labs Laboratory Tests Test 05/11/20 17:00 05/11/20 20:00 05/12/20 07:27 05/12/20 08:15 Glucose (Fingerstick) 154 mg/dL (70-99) 154 mg/dL (70-99) 196 mg/dL (70-99) White Blood Count 8.9 x10^3/uL (4.0-11.0) Red Blood Count 3.27 x10^6/uL (3.50-5.40) Hemoglobin 11.1 g/dL (12.0-15.5) Hematocrit 33.0 % (36.0-47.0) Mean Corpuscular Volume 101 fL (79-100) Mean Corpuscular Hemoglobin 34 pg (25-35) Mean Corpuscular Hemoglobin Concent 34 g/dL (31-37) Red Cell Distribution Width 18.8 % (11.5-14.5) Platelet Count 199 x10^3/uL (140-400) Neutrophils (%) (Auto) 84 % (31-73) Lymphocytes (%) (Auto) 8 % (24-48) Monocytes (%) (Auto) 5 % (0-9) Eosinophils (%) (Auto) 2 % (0-3) Basophils (%) (Auto) 1 % (0-3) Neutrophils # (Auto) 7.4 x10^3/uL (1.8-7.7) Lymphocytes # (Auto) 0.7 x10^3/uL (1.0-4.8) Monocytes # (Auto) 0.5 x10^3/uL (0.0-1.1) Eosinophils # (Auto) 0.2 x10^3/uL (0.0-0.7) Basophils # (Auto) 0.1 x10^3/uL (0.0-0.2) Sodium Level 134 mmol/L (136-145) Potassium Level 4.1 mmol/L (3.5-5.1) Chloride Level 102 mmol/L (98-107) Carbon Dioxide Level 20 mmol/L (21-32) Anion Gap 12 (6-14) Blood Urea Nitrogen 35 mg/dL (7-20) Creatinine 2.1 mg/dL (0.6-1.0) Estimated GFR (Cockcroft-Gault) 23.7 BUN/Creatinine Ratio 17 (6-20) Glucose Level 183 mg/dL (70-99) Calcium Level 8.6 mg/dL (8.5-10.1) Total Bilirubin 2.9 mg/dL (0.2-1.0) Aspartate Amino Transf (AST/SGOT) 79 U/L (15-37) Alanine Aminotransferase (ALT/SGPT) 48 U/L (14-59) Alkaline Phosphatase 384 U/L (46-116) Total Protein 6.5 g/dL (6.4-8.2) Albumin 1.7 g/dL (3.4-5.0) Albumin/Globulin Ratio 0.4 (1.0-1.7) Lipase 460 U/L (73-393) Hepatitis A IgM Antibody Nonreactive (Nonreactive) Hepatitis B Surface Antigen Nonreactive (Nonreactive) Hepatitis B Core IgM Antibody Nonreactive (Nonreactive) Hepatitis C IgG Antibody Reactive (Nonreactive) Test 05/12/20 08:35 05/12/20 11:15 05/12/20 15:00 05/12/20 16:18 SARS-CoV-2 Antigen (Rapid) Negative (NEGATIVE) Glucose (Fingerstick) 230 mg/dL (70-99) 223 mg/dL (70-99) Body Fluid pH 7.03 Test 05/12/20 20:47 05/13/20 07:14 05/13/20 11:15 05/13/20 11:53 Glucose (Fingerstick) 192 mg/dL (70-99) 152 mg/dL (70-99) 133 mg/dL (70-99) Sodium Level 137 mmol/L (136-145) Potassium Level 3.8 mmol/L (3.5-5.1) Chloride Level 105 mmol/L (98-107) Carbon Dioxide Level 23 mmol/L (21-32) Anion Gap 9 (6-14) Blood Urea Nitrogen 32 mg/dL (7-20) Creatinine 1.9 mg/dL (0.6-1.0) Estimated GFR (Cockcroft-Gault) 26.6 Glucose Level 125 mg/dL (70-99) Calcium Level 9.0 mg/dL (8.5-10.1) Phosphorus Level 2.9 mg/dL (2.6-4.7) Albumin 2.2 g/dL (3.4-5.0) Laboratory Tests Test 05/12/20 15:00 05/12/20 16:18 05/12/20 20:47 05/13/20 07:14 Body Fluid pH 7.03 Glucose (Fingerstick) 223 mg/dL (70-99) 192 mg/dL (70-99) 152 mg/dL (70-99) Test 05/13/20 11:15 05/13/20 11:53 Sodium Level 137 mmol/L (136-145) Potassium Level 3.8 mmol/L (3.5-5.1) Chloride Level 105 mmol/L (98-107) Carbon Dioxide Level 23 mmol/L (21-32) Anion Gap 9 (6-14) Blood Urea Nitrogen 32 mg/dL (7-20) Creatinine 1.9 mg/dL (0.6-1.0) Estimated GFR (Cockcroft-Gault) 26.6 Glucose Level 125 mg/dL (70-99) Calcium Level 9.0 mg/dL (8.5-10.1) Phosphorus Level 2.9 mg/dL (2.6-4.7) Albumin 2.2 g/dL (3.4-5.0) Glucose (Fingerstick) 133 mg/dL (70-99) Microbiology 05/11/20 Blood Culture - Preliminary, Resulted NO GROWTH AFTER 1 DAY 05/10/20 Urine Culture - Final, Complete 05/10/20 Antimicrobic Susceptibility - Final, Complete Medications Current Medications Lorazepam (Ativan Inj) 1 mg 1X ONCE IVP Last administered on 05/11/20at 00:29; Start 05/11/20 at 00:30; Stop 05/11/20 at 00:31; Status DC Ondansetron HCl (Zofran) 4 mg PRN Q8HRS PRN IV NAUSEA/VOMITING 1ST CHOICE; Start 05/11/20 at 00:45; Stop 05/11/20 at 14:59; Status DC Morphine Sulfate (Morphine Sulfate) 4 mg PRN Q2HR PRN IV SEVERE PAIN 7-10; Start 05/11/20 at 00:45; Stop 05/12/20 at 00:44; Status DC Furosemide (Lasix) 60 mg DAILY PO Last administered on 05/12/20at 08:50; Start 05/11/20 at 15:00 Metoprolol Succinate (Toprol Xl) 50 mg DAILY PO Last administered on 05/12/20at 08:52; Start 05/11/20 at 15:00 Bupropion HCl (Wellbutrin Xl) 300 mg DAILY PO Last administered on 05/13/20at 09:57; Start 05/11/20 at 15:00 Fluoxetine HCl (PROzac) 80 mg HS PO Last administered on 05/12/20at 22:14; Start 05/11/20 at 21:00 Insulin Glargine (Lantus Syringe) 5 unit QHS SQ ; Start 05/11/20 at 21:00; Stop 05/11/20 at 14:33; Status DC Lactobacillus Rhamnosus (Culturelle) 1 cap DAILY PO Last administered on 05/13/20at 09:57; Start 05/11/20 at 15:00 Pantoprazole Sodium (Protonix) 40 mg DAILYAC PO Last administered on 05/13/20 09:57; Start 05/11/20 at 15:00 Spironolactone (Aldactone) 50 mg BID PO Last administered on 05/12/20 22:15; Start 05/11/20 at 15:00 Insulin Glargine (Lantus Syringe) 10 unit QHS SQ Last administered on 05/12/20 22:15; Start 05/11/20 at 21:00 Insulin Human Lispro (HumaLOG) 0-5 UNITS TIDWMEALS SQ Last administered on 05/12/20at 17:20; Start 05/11/20 at 17:00 Dextrose (Dextrose 50%-Water Syringe) 12.5 gm PRN Q15MIN PRN IV SEE COMMENTS; Start 05/11/20 at 14:45 Ceftriaxone Sodium (Rocephin) 1 gm Q24H IVP Last administered on 05/12/20at 16:40; Start 05/11/20 at 15:00 Sodium Chloride (Normal Saline Flush) 3 ml QSHIFT PRN IV AFTER MEDS AND BLOOD DRAWS; Start 05/11/20 at 14:45 Sodium Chloride 1,000 ml @ 75 mls/hr [id number] IV Last administered on 05/12/20at 09:51; Start 05/11/20 at 14:45 Ondansetron HCl (Zofran) 4 mg PRN Q4HRS PRN IV NAUSEA/VOMITING; Start 05/11/20 at 14:45 Acetaminophen (Tylenol) 650 mg PRN Q4HRS PRN PO TEMP OVER 100.4F OR MILD PAIN; Start 05/11/20 at 14:45 Sodium Monofluorophosphate (Fleet Adult) 133 ml PRN DAILY PRN [place] CONSTIPATION; Start 05/11/20 at 14:45 Diphenhydramine HCl (Benadryl) 25 mg PRN Q4HRS PRN IVP ITCHING Last administered on 05/11/20at 21:05; Start 05/11/20 at 14:45 Docusate Sodium (Colace) 100 mg PRN BID PRN PO HARD STOOLS; Start 05/11/20 at 14:45 Albuterol Sulfate (Ventolin Neb Soln) 2.5 mg PRN Q4HRS PRN NEB SHORTNESS OF BREATH; Start 05/11/20 at 14:45 Albuterol/ Ipratropium (Duoneb) 3 ml PRN Q4HRS PRN NEB SHORTNESS OF BREATH; Start 05/11/20 at 14:45 Guaifenesin (Robitussin) 200 mg PRN Q4HRS PRN PO COUGH; Start 05/11/20 at 14:45 Lorazepam (Ativan) 0.5 mg PRN Q4HRS PRN PO ANXIETY / AGITATION Last administered on 05/13/20at 02:57; Start 05/11/20 at 14:45 Lorazepam (Ativan Inj) 2 mg PRN Q4HRS PRN IV ANXIETY / AGITATION; Start 05/11/20 at 14:45 Enoxaparin Sodium (Lovenox 30mg Syringe) 30 mg Q24H SQ Last administered on 05/11/20at 16:44; Start 05/11/20 at 16:00 Lidocaine HCl (Buffered Lidocaine 1%) 3 ml STK-MED ONCE .ROUTE ; Start 05/12/20 at 14:25; Stop 05/12/20 at 14:25; Status DC Albumin Human 100 ml @ As Directed STK-MED ONCE IV ; Start 05/12/20 at 15:27; Stop 05/12/20 at 15:27; Status DC Albumin Human 100 ml @ 100 mls/hr 1X ONCE IV Last administered on 05/12/20at 15:40; Start 05/12/20 at 15:45; Stop 05/12/20 at 16:44; Status DC Albumin Human 100 ml @ 100 mls/hr 1X ONCE IV Last administered on 05/12/20at 16:41; Start 05/12/20 at 15:45; Stop 05/12/20 at 16:44; Status DC Active Scripts Active Reported Spironolactone 50 Mg Tablet 1 Tab PO BID Protonix (Pantoprazole Sodium) 20 Mg Tablet.dr 40 Mg PO DAILY Humalog (Insulin Lispro) 100 Unit/1 Ml Vial 100 Unit SQ QIDACHS Toprol XL (Metoprolol Succinate) 50 Mg Tab.er.24h 50 Mg PO DAILY Levemir (Insulin Detemir) 100 Unit/1 Ml Vial 5 Unit SQ HS Lasix (Furosemide) 20 Mg Tablet 60 Mg PO DAILY Probiotic (Lactobacillus Acidophilus) 1 Each Capsule 1 Each PO DAILY Fluoxetine Hcl 40 Mg Capsule 2 Cap PO HS Bupropion Xl (Bupropion Hcl) 300 Mg Tab.er.24h 1 Tab PO DAILY Vitals/I & O Vital Sign - Last 24 Hours 05/12/20 05/12/20 05/12/20 05/12/20 14:59 15:18 19:00 20:00 Temp 98.2 98.2 Pulse 73 75 76 B/P (MAP) 109/59 (76) 99/51 (67) 93/53 (66) Pulse Ox 98 96 90 O2 Delivery Nasal Cannula Nasal Cannula Nasal Cannula Nasal Cannula O2 Flow Rate 6.0 6.0 4.0 4.0 05/12/20 05/13/20 05/13/20 05/13/20 23:00 03:00 07:00 09:00 Temp 98.5 97.9 97.1 98.5 97.9 97.1 Pulse 77 73 71 71 Resp 22 20 18 B/P (MAP) 89/63 (72) 94/57 (69) 82/48 (59) 82/48 Pulse Ox 90 91 90 O2 Delivery Nasal Cannula Nasal Cannula Nasal Cannula O2 Flow Rate 4.0 4.0 4.0 05/13/20 11:00 Temp 97.6 97.6 Pulse 71 Resp 18 B/P (MAP) 71/44 (53) Pulse Ox 94 O2 Delivery Nasal Cannula O2 Flow Rate 4.0 Intake and Output 05/12/20 05/12/20 05/13/20 15:00 23:00 07:00 Intake Total 240 ml 600 ml Output Total 7700 ml Balance -7460 ml 600 ml Nutrition Consultation Dietary Evaluation: Recommendations by RD: Dietary education by RD Comments: clarified diet to ADA/Cardiac ( low Na with ascites) Expected Outcomes/Goals: to meet >75% est nutr needs Malnutrition Findings: Food and Nutrition Intake (Sev: <50% est energy req 5days Weight Status: Appropriate Fluid Accumulation (Severe): Severe Justicifation of Admission Dx: Justifications for Admission: Justification of Admission Dx: Yes CASA DIAZ MD May 13, 2020 13:01
[2020-05-13] MEDS ORDERED: ALBUMIN HUMAN 25% 100 ML IV ONE (13:45)
[2020-05-13] MEDS ORDERED: LIDOCAINE WITH 8.4% SOD BICARB 3 ML DISP.SYRIN. ONE (14:29)
--- NOTE | 2020-05-13 14:35 | NUR ---
SW following for discharge planning. Spoke with RN and reviewed chart. Pt down to 4l 02. Pt confused and remains on IV Rocephin. Discharge plan remains to [facility] when stable. SW following.
[2020-05-13] MEDS ORDERED: LIDOCAINE WITH 8.4% SOD BICARB 3 ML DISP.SYRIN. INJ ONE (14:45)
[2020-05-13 15:00] VITALS: BP 103/61
[2020-05-13] MEDS: cefTRIAXone IV Push 1 GM VIAL. IVP SCH (15:20)
[2020-05-13] MEDS: ENOXAPARIN 30 MG/0.3 ML SYRINGE. SQ SCH (15:21)
--- NOTE | 2020-05-13 15:33 | RAD ---
Exam: Fluoroscopic and ultrasound guided right percutaneous inserted central venous catheter placement 05/13/2020 1:29 PM .Indication: antibiotics, fluids, poor venous access Technique: Informed oral and written consent were obtained. The right upper extremity was prepped and draped using sterile barrier technique. All elements of maximal sterile barrier technique including the use of a cap, mask, sterile gown, sterile gloves, large sterile sheet, appropriate hand hygiene, and 2% chlorhexidine for cutaneous antisepsis (or acceptable alternative antiseptic per current guidelines) were followed for this procedure.. Real-time ultrasound demonstrated a patent right basilic vein which was prepped and draped in usual sterile fashion. 1% lidocaine used for local anesthesia. Using real-time ultrasound guidance the access needle percutaneously punctured the selected right basilic vein. Reference ultrasound images were saved to the medical record. A guidewire was advanced through the needle to the cavoatrial junction, and a peel-away sheath placed. The catheter was cut to length and inserted through the peel-away sheath such that its tip is at the cavoatrial junction. The wire and sheath were removed, and the catheter secured in place, and a sterile dressing was applied. Catheter was found to flush and aspirate normally. No immediate complications are identified. FLUORO TIME: 0.3 DOSE AREA PRODUCT: 0.3 Gycm2 Impression: Ultrasound and fluoroscopically guided placement of a right upper extremity PICC line.
--- NOTE | 2020-05-13 17:13 | PATHOLOGY ---
Note [facility] Accession Number: [id number] TESTS RESULT FLAG UNITS REF RANGE LAB Clinician Provided Cytology Information No. of containers..01 Other (Miscellaneous) Source: 01 ASCITES DIAGNOSIS: 02 ASCITES NEGATIVE FOR MALIGNANT CELLS. REACTIVE MESOTHELIAL CELLS AND FEW NEUTROPHILS AND LYMPHOCYTES PRESENT. THIS INTERPRETATION INCLUDES EVALUATION OF A CELL BLOCK. Signed out by: 02 Candelario Alvarez MD, Pathologist NPI- [id number] Performed by: Tainsha Russo, Client Application Support Engineer ([facility]) Gross description: 01 27ML, YELLOW, 1TP 1CB /LCS 05/13/2020 0648 Local FLAG LEGEND: L-Low Normal,H-High Normal,LL-Alert Low,HH-Alert High <-Panic Low,>-Panic High,A-Abnormal,AA-Critical Abnormal Performed at: 01 [facility] [address] [place] [address] Kristofer Chowdhury MD, 02 [facility] [address] [place] [address] Candelario Alvarez MD, Specimen Comment: A courtesy copy of this report has been sent to [phone], [phone] Specimen Comment: [phone], Specimen Comment: Report sent to DR STAFFORD,DR URIBE / DR HORN Specimen Comment: A duplicate report has been generated due to demographic updates. Performed at: 01 [facility] [address], [place], [place] [id number] MD Kristofer Chowdhury MD Phone: [phone]
[2020-05-13 19:00] VITALS: BP 101/58
[2020-05-13] MEDS: FLUoxetine HCL 20 MG CAPSULE PO SCH (22:14)
[2020-05-13] MEDS: diphenhydrAMINE 50 MG/ML VIAL IVP PRN (22:15)
[2020-05-13] MEDS: INSULIN GLARGINE SYRINGE. SQ SCH (22:27)
[2020-05-13 23:00] VITALS: BP 98/55
[2020-05-14 03:00] VITALS: BP 103/61
[2020-05-14] MEDS: LORazepam 0.5 MG TABLET PO PRN ×2 (03:00→12:22)
[2020-05-14 07:00] VITALS: BP 95/59
[2020-05-14] MEDS: INSULIN LISPRO 300 UNITS/3 ML VIAL. SQ SCH ×3 (08:00→18:43)
[2020-05-14 08:10] LABS: CALCIUM 8.6 mg/dL (8.5-10.1); CREATININE 1.9 mg/dL (0.6-1.0); GFR 26.6; POTASSIUM 3.6 mmol/L (3.5-5.1)
[2020-05-14] MEDS: METOPROLOL SUCC 24HR ER 50 MG TAB.ER.24H. PO SCH (09:00)
[2020-05-14] MEDS: SPIRONOLACTONE 25 MG TABLET PO SCH ×3 (09:15→20:46)
[2020-05-14] MEDS: PANTOPRAZOLE 40 MG TABLET.DR. PO SCH (09:15)
[2020-05-14] MEDS: LACTOBACILLUS RHAMNOSUS GG 1 CAPSULE. PO SCH (09:15)
[2020-05-14] MEDS: buPROPion XL 150 MG TAB.ER.24H. PO SCH (09:16)
[2020-05-14] MEDS: FUROSEMIDE 40 MG TABLET. PO SCH (09:16)
[2020-05-14] MEDS: IV NORMAL SALINE 1000ML BAG 1,000 ML IV SCH ×2 (09:16→20:24)
--- NOTE | 2020-05-14 10:21 | PDOC ---
Date of Service: DATE: 05/14/20 TIME: 10:19 Objective: Vital Signs: Vital Signs Date Time Temp Pulse Resp B/P (MAP) Pulse Ox O2 Delivery O2 Flow Rate FiO2 05/14/20 07:00 98.0 74 18 95/59 (71) 89 Nasal Cannula 4.0 98.0 Labs: Laboratory Tests Test 05/13/20 11:15 05/13/20 11:53 05/13/20 17:03 05/13/20 19:12 Sodium Level 137 mmol/L Potassium Level 3.8 mmol/L Chloride Level 105 mmol/L Carbon Dioxide Level 23 mmol/L Anion Gap 9 Blood Urea Nitrogen 32 mg/dL Creatinine 1.9 mg/dL Estimated GFR (Cockcroft-Gault) 26.6 Glucose Level 125 mg/dL Calcium Level 9.0 mg/dL Phosphorus Level 2.9 mg/dL Albumin 2.2 g/dL Glucose (Fingerstick) 133 mg/dL 129 mg/dL 148 mg/dL Test 05/14/20 07:00 Sodium Level 135 mmol/L Potassium Level 3.6 mmol/L Chloride Level 102 mmol/L Carbon Dioxide Level 22 mmol/L Anion Gap 11 Blood Urea Nitrogen 31 mg/dL Creatinine 1.9 mg/dL Estimated GFR (Cockcroft-Gault) 26.6 Glucose Level 139 mg/dL Calcium Level 8.6 mg/dL BLOOD CULTURE Preliminary NO GROWTH AFTER 2 DAYS PE: GEN: with therapy - getting off commode A/P: Cirrhosis, ascites s/p paracentesis, right inguinal lymphadenopathy BRISA, UTI, encephalopathy Hep C Ab + (PCR pending), h/o alcohol Rapid COVID negative 05/12 -- Stooling, therapy present - will return later. Justicifation of Admission Dx: Justifications for Admission: Justification of Admission Dx: Yes MANISH CUELLO May 14, 2020 10:21
--- NOTE | 2020-05-14 10:32 | PDOC ---
DATE OF SERVICE DATE: 05/14/20 TIME: 10:31 SUBJECTIVE ROS stable, sitting up in chair OBJECTIVE Vital Signs Vital Signs Date Time Temp Pulse Resp B/P (MAP) Pulse Ox O2 Delivery O2 Flow Rate FiO2 05/14/20 07:00 98.0 74 18 95/59 (71) 89 Nasal Cannula 4.0 98.0 I & 0 Intake and Output 05/14/20 07:00 Intake Total 420 ml Balance 420 ml Intake Oral 420 ml # Voids 2 PHYSICAL EXAM Physical Exam GENERAL: NAD HEEN Icterus +, OM moist NECK Supple LUNGS: decreased breath sounds.Non labored CARDIOVASCULAR: S1, S2 ABDOMEN: soft and distended EXTREMITIES: edema.+ No CVA or SP tenderness NEURO alert SKIN No Rash DIAGNOSIS/ASSESSMENT Assessment & Plan BRISA - Pre-renal/Hepatorenal , Non Oliguric(per nursing, uop not recorded), Baseline not available to me , UA ?UTI . CT scan Kidneys unremarkable Improving renal function, could be her baseline Supportive care, avoid nephrotoxins, strict I/O HypoNatremia - resolved Cirrhosis with a large amount of ascites -s/p paracentesis 7.7 lts on 05/12 . Currently on Aldactone . GI managing Acute hypoxic respiratory failure- COVID negative COPD Severe ETOH abuse -remote stopped 1977, Only Occasional now Diabetes GERD- on PPI COMMENT/RELEVANT DATA Meds Current Medications Medications (Trade) Dose Ordered Sig/Jena Start Time Stop Time Status Last Admin Dose Admin Acetaminophen (Tylenol) 650 mg PRN Q4HRS PRN 05/11/20 14:45 Albumin Human 100 ml @ 100 mls/hr 1X ONCE 05/13/20 13:45 05/13/20 14:44 DC 05/13/20 15:20 100 MLS/HR Albuterol Sulfate (Ventolin Neb Soln) 2.5 mg PRN Q4HRS PRN 05/11/20 14:45 Albuterol/ Ipratropium (Duoneb) 3 ml PRN Q4HRS PRN 05/11/20 14:45 Bupropion HCl (Wellbutrin Xl) 300 mg DAILY 05/11/20 15:00 05/14/20 09:16 300 MG Ceftriaxone Sodium (Rocephin) 1 gm Q24H 05/11/20 15:00 05/13/20 15:20 1 GM Dextrose (Dextrose 50%-Water Syringe) 12.5 gm PRN Q15MIN PRN 05/11/20 14:45 Diphenhydramine HCl (Benadryl) 25 mg PRN Q4HRS PRN 05/11/20 14:45 05/13/20 22:15 25 MG Docusate Sodium (Colace) 100 mg PRN BID PRN 05/11/20 14:45 Enoxaparin Sodium (Lovenox 30mg Syringe) 30 mg Q24H 05/11/20 16:00 05/13/20 15:21 30 MG Fluoxetine HCl (PROzac) 80 mg HS 05/11/20 21:00 05/13/20 22:14 80 MG Furosemide (Lasix) 60 mg DAILY 05/11/20 15:00 05/14/20 09:16 60 MG Guaifenesin (Robitussin) 200 mg PRN Q4HRS PRN 05/11/20 14:45 Insulin Glargine (Lantus Syringe) 10 unit QHS 05/11/20 21:00 05/13/20 22:27 10 UNIT Insulin Human Lispro (HumaLOG) 0-5 UNITS TIDWMEALS 05/11/20 17:00 05/12/20 17:20 3 UNITS Lactobacillus Rhamnosus (Culturelle) 1 cap DAILY 05/11/20 15:00 05/14/20 09:15 1 CAP Lidocaine HCl (Buffered Lidocaine 1%) 5 ml 1X ONCE 05/13/20 14:45 05/13/20 14:46 DC 05/13/20 14:45 5 ML Lorazepam (Ativan Inj) 2 mg PRN Q4HRS PRN 05/11/20 14:45 Lorazepam (Ativan) 0.5 mg PRN Q4HRS PRN 05/11/20 14:45 05/14/20 03:00 0.5 MG Metoprolol Succinate (Toprol Xl) 50 mg DAILY 05/11/20 15:00 05/12/20 08:52 50 MG Morphine Sulfate (Morphine Sulfate) 4 mg PRN Q2HR PRN 05/11/20 00:45 05/12/20 00:44 DC Ondansetron HCl (Zofran) 4 mg PRN Q4HRS PRN 05/11/20 14:45 Pantoprazole Sodium (Protonix) 40 mg DAILYAC 05/11/20 15:00 05/14/20 09:15 40 MG Sodium Monofluorophosphate (Fleet Adult) 133 ml PRN DAILY PRN 05/11/20 14:45 Sodium Chloride 1,000 ml @ 75 mls/hr [id number] 05/11/20 14:45 05/14/20 09:16 75 MLS/HR Sodium Chloride (Normal Saline Flush) 3 ml QSHIFT PRN 05/11/20 14:45 Spironolactone (Aldactone) 50 mg BID 05/11/20 15:00 05/14/20 09:15 50 MG Lab Laboratory Tests Test 05/13/20 11:15 05/13/20 11:53 05/13/20 17:03 05/13/20 19:12 Sodium Level 137 mmol/L (136-145) Potassium Level 3.8 mmol/L (3.5-5.1) Chloride Level 105 mmol/L (98-107) Carbon Dioxide Level 23 mmol/L (21-32) Anion Gap 9 (6-14) Blood Urea Nitrogen 32 mg/dL (7-20) Creatinine 1.9 mg/dL (0.6-1.0) Estimated GFR (Cockcroft-Gault) 26.6 Glucose Level 125 mg/dL (70-99) Calcium Level 9.0 mg/dL (8.5-10.1) Phosphorus Level 2.9 mg/dL (2.6-4.7) Albumin 2.2 g/dL (3.4-5.0) Glucose (Fingerstick) 133 mg/dL (70-99) 129 mg/dL (70-99) 148 mg/dL (70-99) Test 05/14/20 07:00 Sodium Level 135 mmol/L (136-145) Potassium Level 3.6 mmol/L (3.5-5.1) Chloride Level 102 mmol/L (98-107) Carbon Dioxide Level 22 mmol/L (21-32) Anion Gap 11 (6-14) Blood Urea Nitrogen 31 mg/dL (7-20) Creatinine 1.9 mg/dL (0.6-1.0) Estimated GFR (Cockcroft-Gault) 26.6 Glucose Level 139 mg/dL (70-99) Calcium Level 8.6 mg/dL (8.5-10.1) Results All relevant outside records, renal labs, imaging studies, telemetry/EKG's were reviewed. Justicifation of Admission Dx: Justifications for Admission: Justification of Admission Dx: Yes LEIDY KAUFMAN MD May 14, 2020 10:32
[2020-05-14 11:00] VITALS: BP 102/70
--- NOTE | 2020-05-14 11:29 | PDOC ---
PROGRESS NOTES Date of Service: DATE: 05/14/20 TIME: 11:28 Chief Complaint Chief Complaint Acute metabolic encephalopathy Chronic lung disease with no acute superimposed process. 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 Chronic appearing superior endplate compression deformity at L1 and posterior decompression at L3 and L4 with hetal and pedicle screw construct posterior fusion pt/ot hyponatremia, HYPOVOLEMIC BRISA NEPHROLOGY CONSULT appreciated diabetes SS INSULIN GERD PROTONIX TOBACCO ABUSE DISORDER Cessation education provided serial LFTS/ammonia level therapeutic paracentesis with fluid analysis Ultrasound-guided paracentesis 05/12/2020 2:07 PM Procedure: The risks and benefits of the procedure were discussed the patient. Informed consent was obtained. A timeout procedure was performed. Sonographic evaluation of the abdomen was performed demonstrating ascites . The right lower quadrant was prepped and draped using maximum sterile barrier technique. 1% lidocaine without epinephrine was administered for local anesthesia. Real-time ultrasonographic guidance was used in passing a 5 Khmer Yueh catheter into the fluid collection. 7.7 L of serous ascites was removed. The catheter was removed and pressure held to achieve hemostasis. A sterile dressing was applied. Impression: Successful ultrasound-guided paracentesis Plan: Waiting for final recommendations from consultants Patient seems to be at baseline She lives in assisted living facility where she will transition after this hospital stay. Monitor urinary output History of Present Illness History of Present Illness ADMIT DATE: 05/11/2020 ADMISSION HISTORY CHIEF COMPLAINT: Abdominal pain and shortness of air, ascites seen on CT. HISTORY OF PRESENT ILLNESS: This is a 65-year-old female with a remote history of alcohol abuse, was seen in the ER after transfer from [facility] for abdominal pain and shortness of breath. She states that her abdomen is distended and she was having some trouble breathing. Denies cough or fever. When seen in the ER, she had evidence of moderate ascites, also enlarged inguinal lymph node present. She has a long history of smoking. She states she stopped drinking heavily in 1977, but still drinks occasionally. She was found to have a large superficial lymph node measuring 3.78 cm in diameter in the right inguinal region 05/12/2020 Patient pleasantly confused. She wants her oxygen saturation removed from her finger. Oriented in person but not really in situation or place or time. Hemodynamically stable, awaiting for paracentesis 05/13/2020 No acute events reported overnight, case discussed with nursing staff patient in no acute distress no complaints during my visit still encephalopathic and unable to have a meaningful conversation she does not seem to be in acute distress no respiratory distress noted either. 05/14/2020 No acute events reported overnight, case discussed with nursing staff patient in no acute distress no complaints during my visit Vitals Vitals Vital Signs Date Time Temp Pulse Resp B/P (MAP) Pulse Ox O2 Delivery O2 Flow Rate FiO2 05/14/20 11:00 98.3 68 18 102/70 (81) 90 Nasal Cannula 3.0 98.3 Physical Exam Physical Exam GENERAL: Mildly confused, well nourished, in no acute distress. HEENT: Throat and pharynx are clear. Extraocular muscles are intact. Visual lockwood are full to confrontation. She does have some jaundice present., scleral icteric NECK: Supple, without stridor or JVD. CARDIOVASCULAR: Regular rate without murmur, S3 or S4. LUNGS: Clear to auscultation. ABDOMEN: Soft, moderate distention, diffuse tenderness to palpation. I am not able to appreciate ascites fluid wave. SKIN: Warm and dry. BACK: Without CVA tenderness. EXTREMITIES: No clubbing, cyanosis or edema. NEUROLOGIC: Alert but confused, disoriented to place. No focal deficits are present. Muscles of mastication are symmetric bilaterally. Affect is normal. Mood is normal. She is confused to details. General: Alert, Cooperative, No acute distress Extremities: No cyanosis Labs LABS Laboratory Tests Test 05/13/20 11:53 05/13/20 17:03 05/13/20 19:12 05/14/20 07:00 Glucose (Fingerstick) 133 mg/dL (70-99) 129 mg/dL (70-99) 148 mg/dL (70-99) Sodium Level 135 mmol/L (136-145) Potassium Level 3.6 mmol/L (3.5-5.1) Chloride Level 102 mmol/L (98-107) Carbon Dioxide Level 22 mmol/L (21-32) Anion Gap 11 (6-14) Blood Urea Nitrogen 31 mg/dL (7-20) Creatinine 1.9 mg/dL (0.6-1.0) Estimated GFR (Cockcroft-Gault) 26.6 Glucose Level 139 mg/dL (70-99) Calcium Level 8.6 mg/dL (8.5-10.1) Assessment and Plan Assessmemt and Plan Problems Medical Problems: (1) Abdominal pain Status: Acute (2) Ascites Status: Acute Comment Review of Relevant I have reviewed the following items kelvin (where applicable) has been applied. Labs Laboratory Tests Test 05/12/20 15:00 05/12/20 16:18 05/12/20 20:47 05/13/20 07:14 Body Fluid pH 7.03 Body Fluid Glucose 195 mg/dL (.) Body Fluid Albumin 0.3 g/dL (Not Estab.) Body Fluid Lactate Dehydrogenase 39 IU/L (.) Body Fluid Amylase 16 U/L (.) Glucose (Fingerstick) 223 mg/dL (70-99) 192 mg/dL (70-99) 152 mg/dL (70-99) Test 05/13/20 11:15 05/13/20 11:53 05/13/20 17:03 05/13/20 19:12 Sodium Level 137 mmol/L (136-145) Potassium Level 3.8 mmol/L (3.5-5.1) Chloride Level 105 mmol/L (98-107) Carbon Dioxide Level 23 mmol/L (21-32) Anion Gap 9 (6-14) Blood Urea Nitrogen 32 mg/dL (7-20) Creatinine 1.9 mg/dL (0.6-1.0) Estimated GFR (Cockcroft-Gault) 26.6 Glucose Level 125 mg/dL (70-99) Calcium Level 9.0 mg/dL (8.5-10.1) Phosphorus Level 2.9 mg/dL (2.6-4.7) Albumin 2.2 g/dL (3.4-5.0) Glucose (Fingerstick) 133 mg/dL (70-99) 129 mg/dL (70-99) 148 mg/dL (70-99) Test 05/14/20 07:00 Sodium Level 135 mmol/L (136-145) Potassium Level 3.6 mmol/L (3.5-5.1) Chloride Level 102 mmol/L (98-107) Carbon Dioxide Level 22 mmol/L (21-32) Anion Gap 11 (6-14) Blood Urea Nitrogen 31 mg/dL (7-20) Creatinine 1.9 mg/dL (0.6-1.0) Estimated GFR (Cockcroft-Gault) 26.6 Glucose Level 139 mg/dL (70-99) Calcium Level 8.6 mg/dL (8.5-10.1) Laboratory Tests Test 05/13/20 11:53 05/13/20 17:03 05/13/20 19:12 05/14/20 07:00 Glucose (Fingerstick) 133 mg/dL (70-99) 129 mg/dL (70-99) 148 mg/dL (70-99) Sodium Level 135 mmol/L (136-145) Potassium Level 3.6 mmol/L (3.5-5.1) Chloride Level 102 mmol/L (98-107) Carbon Dioxide Level 22 mmol/L (21-32) Anion Gap 11 (6-14) Blood Urea Nitrogen 31 mg/dL (7-20) Creatinine 1.9 mg/dL (0.6-1.0) Estimated GFR (Cockcroft-Gault) 26.6 Glucose Level 139 mg/dL (70-99) Calcium Level 8.6 mg/dL (8.5-10.1) Microbiology 05/11/20 Blood Culture - Preliminary, Resulted NO GROWTH AFTER 2 DAYS 05/10/20 Urine Culture - Final, Complete 05/10/20 Antimicrobic Susceptibility - Final, Complete Medications Current Medications Lorazepam (Ativan Inj) 1 mg 1X ONCE IVP Last administered on 05/11/20at 00:29; Start 05/11/20 at 00:30; Stop 05/11/20 at 00:31; Status DC Ondansetron HCl (Zofran) 4 mg PRN Q8HRS PRN IV NAUSEA/VOMITING 1ST CHOICE; Start 05/11/20 at 00:45; Stop 05/11/20 at 14:59; Status DC Morphine Sulfate (Morphine Sulfate) 4 mg PRN Q2HR PRN IV SEVERE PAIN 7-10; Start 05/11/20 at 00:45; Stop 05/12/20 at 00:44; Status DC Furosemide (Lasix) 60 mg DAILY PO Last administered on 05/14/20 09:16; Start 05/11/20 at 15:00 Metoprolol Succinate (Toprol Xl) 50 mg DAILY PO Last administered on 05/12/20at 08:52; Start 05/11/20 at 15:00 Bupropion HCl (Wellbutrin Xl) 300 mg DAILY PO Last administered on 05/14/20at 0 9:16; Start 05/11/20 at 15:00 Fluoxetine HCl (PROzac) 80 mg HS PO Last administered on 05/13/20at 22:14; Start 05/11/20 at 21:00 Insulin Glargine (Lantus Syringe) 5 unit QHS SQ ; Start 05/11/20 at 21:00; Stop 05/11/20 at 14:33; Status DC Lactobacillus Rhamnosus (Culturelle) 1 cap DAILY PO Last administered on 05/14/20at 09:15; Start 05/11/20 at 15:00 Pantoprazole Sodium (Protonix) 40 mg DAILYAC PO Last administered on 05/14/20at 09:15; Start 05/11/20 at 15:00 Spironolactone (Aldactone) 50 mg BID PO Last administered on 05/14/20 09:15; Start 05/11/20 at 15:00 Insulin Glargine (Lantus Syringe) 10 unit QHS SQ Last administered on 05/13/20 22:27; Start 05/11/20 at 21:00 Insulin Human Lispro (HumaLOG) 0-5 UNITS TIDWMEALS SQ Last administered on 05/12/20at 17:20; Start 05/11/20 at 17:00 Dextrose (Dextrose 50%-Water Syringe) 12.5 gm PRN Q15MIN PRN IV SEE COMMENTS; Start 05/11/20 at 14:45 Ceftriaxone Sodium (Rocephin) 1 gm Q24H IVP Last administered on 05/13/20at 15:20; Start 05/11/20 at 15:00 Sodium Chloride (Normal Saline Flush) 3 ml QSHIFT PRN IV AFTER MEDS AND BLOOD DRAWS; Start 05/11/20 at 14:45 Sodium Chloride 1,000 ml @ 75 mls/hr [id number] IV Last administered on 05/14/20at 09:16; Start 05/11/20 at 14:45 Ondansetron HCl (Zofran) 4 mg PRN Q4HRS PRN IV NAUSEA/VOMITING; Start 05/11/20 at 14:45 Acetaminophen (Tylenol) 650 mg PRN Q4HRS PRN PO TEMP OVER 100.4F OR MILD PAIN; Start 05/11/20 at 14:45 Sodium Monofluorophosphate (Fleet Adult) 133 ml PRN DAILY PRN UT CONSTIPATION; Start 05/11/20 at 14:45 Diphenhydramine HCl (Benadryl) 25 mg PRN Q4HRS PRN IVP ITCHING Last administered on 05/13/20at 22:15; Start 05/11/20 at 14:45 Docusate Sodium (Colace) 100 mg PRN BID PRN PO HARD STOOLS; Start 05/11/20 at 14:45 Albuterol Sulfate (Ventolin Neb Soln) 2.5 mg PRN Q4HRS PRN NEB SHORTNESS OF BREATH; Start 05/11/20 at 14:45 Albuterol/ Ipratropium (Duoneb) 3 ml PRN Q4HRS PRN NEB SHORTNESS OF BREATH; Start 05/11/20 at 14:45 Guaifenesin (Robitussin) 200 mg PRN Q4HRS PRN PO COUGH; Start 05/11/20 at 14:45 Lorazepam (Ativan) 0.5 mg PRN Q4HRS PRN PO ANXIETY / AGITATION Last administered on 05/14/20at 03:00; Start 05/11/20 at 14:45 Lorazepam (Ativan Inj) 2 mg PRN Q4HRS PRN IV ANXIETY / AGITATION; Start 05/11/20 at 14:45 Enoxaparin Sodium (Lovenox 30mg Syringe) 30 mg Q24H SQ Last administered on 05/13/20at 15:21; Start 05/11/20 at 16:00 Lidocaine HCl (Buffered Lidocaine 1%) 3 ml STK-MED ONCE .ROUTE ; Start 05/12/20 a t 14:25; Stop 05/12/20 at 14:25; Status DC Albumin Human 100 ml @ As Directed STK-MED ONCE IV ; Start 05/12/20 at 15:27; Stop 05/12/20 at 15:27; Status DC Albumin Human 100 ml @ 100 mls/hr 1X ONCE IV Last administered on 05/12/20at 15:40; Start 05/12/20 at 15:45; Stop 05/12/20 at 16:44; Status DC Albumin Human 100 ml @ 100 mls/hr 1X ONCE IV Last administered on 05/12/20at 16:41; Start 05/12/20 at 15:45; Stop 05/12/20 at 16:44; Status DC Albumin Human 100 ml @ 100 mls/hr 1X ONCE IV Last administered on 05/13/20at 15:20; Start 05/13/20 at 13:45; Stop 05/13/20 at 14:44; Status DC Lidocaine HCl (Buffered Lidocaine 1%) 3 ml STK-MED ONCE .ROUTE ; Start 05/13/20 at 14:29; Stop 05/13/20 at 14:30; Status DC Lidocaine HCl (Buffered Lidocaine 1%) 5 ml 1X ONCE INJ Last administered on 05/13/20at 14:45; Start 05/13/20 at 14:45; Stop 05/13/20 at 14:46; Status DC Active Scripts Active Reported Spironolactone 50 Mg Tablet 1 Tab PO BID Protonix (Pantoprazole Sodium) 20 Mg Tablet.dr 40 Mg PO DAILY Humalog (Insulin Lispro) 100 Unit/1 Ml Vial 100 Unit SQ QIDACHS Toprol XL (Metoprolol Succinate) 50 Mg Tab.er.24h 50 Mg PO DAILY Levemir (Insulin Detemir) 100 Unit/1 Ml Vial 5 Unit SQ HS Lasix (Furosemide) 20 Mg Tablet 60 Mg PO DAILY Probiotic (Lactobacillus Acidophilus) 1 Each Capsule 1 Each PO DAILY Fluoxetine Hcl 40 Mg Capsule 2 Cap PO HS Bupropion Xl (Bupropion Hcl) 300 Mg Tab.er.24h 1 Tab PO DAILY Vitals/I & O Vital Sign - Last 24 Hours 05/13/20 05/13/20 05/13/20 05/13/20 15:00 19:00 20:00 23:00 Temp 98.0 97.9 98.2 98.0 97.9 98.2 Pulse 73 71 69 Resp 18 18 18 B/P (MAP) 103/61 (75) 101/58 (72) 98/55 (69) Pulse Ox 96 93 95 O2 Delivery Nasal Cannula Nasal Cannula Nasal Cannula Nasal Cannula O2 Flow Rate 4.0 4.0 3.0 4.0 05/14/20 05/14/20 05/14/20 03:00 07:00 11:00 Temp 97.7 98.0 98.3 97.7 98.0 98.3 Pulse 79 74 68 Resp 18 18 18 B/P (MAP) 103/61 (75) 95/59 (71) 102/70 (81) Pulse Ox 90 89 90 O2 Delivery Nasal Cannula Nasal Cannula Nasal Cannula O2 Flow Rate 4.0 4.0 3.0 Intake and Output 05/13/20 05/13/20 05/14/20 15:00 23:00 07:00 Intake Total 120 ml 300 ml 0 ml Balance 120 ml 300 ml 0 ml Nutrition Consultation Dietary Evaluation: Recommendations by RD: Dietary education by RD Comments: clarified diet to ADA/Cardiac ( low Na with ascites) Expected Outcomes/Goals: to meet >75% est nutr needs Malnutrition Findings: Food and Nutrition Intake (Sev: <50% est energy req 5days Weight Status: Appropriate Fluid Accumulation (Severe): Severe Justicifation of Admission Dx: Justifications for Admission: Justification of Admission Dx: Yes CASA DIAZ MD May 14, 2020 11:29
--- NOTE | 2020-05-14 12:36 | NUR ---
DEB following for discharge planning. Spoke with RN and reviewed chart. Possible discharge back to [facility] today. DEB following. Addendum: 05/14/20 at 1619 by MORIAH BOYD DEB contacted by [facility] social science professor. Pt was recently placed into LTC at [place]. Pt will likely discharge tomorrow, 05/15.
[2020-05-14 14:13] LABS: HCV ULTRA QUANT PCR HCV Not Detected IU/mL (.)
[2020-05-14 15:00] VITALS: BP 106/58
[2020-05-14] MEDS: cefTRIAXone IV Push 1 GM VIAL. IVP SCH (16:33)
[2020-05-14] MEDS: ENOXAPARIN 30 MG/0.3 ML SYRINGE. SQ SCH (16:33)
[2020-05-14 19:00] VITALS: BP 98/54
[2020-05-14] MEDS: INSULIN GLARGINE SYRINGE. SQ SCH (20:23)
[2020-05-14] MEDS: FLUoxetine HCL 20 MG CAPSULE PO SCH (20:24)
[2020-05-14 23:00] VITALS: BP 93/80
[2020-05-15] VITALS (12 sets, daily range): BP systolic 96–118; BP diastolic 50–66
[2020-05-15] MEDS: PANTOPRAZOLE 40 MG TABLET.DR. PO SCH (07:30)
[2020-05-15] MEDS: INSULIN LISPRO 300 UNITS/3 ML VIAL. SQ SCH ×3 (07:37→17:00)
[2020-05-15] MEDS: LACTOBACILLUS RHAMNOSUS GG 1 CAPSULE. PO SCH (08:36)
[2020-05-15] MEDS: buPROPion XL 150 MG TAB.ER.24H. PO SCH (08:36)
[2020-05-15] MEDS: SPIRONOLACTONE 25 MG TABLET PO SCH ×2 (08:36→20:46)
[2020-05-15] MEDS: FUROSEMIDE 40 MG TABLET. PO SCH (08:37)
[2020-05-15] MEDS: METOPROLOL SUCC 24HR ER 50 MG TAB.ER.24H. PO SCH (08:37)
--- NOTE | 2020-05-15 09:17 | PDOC ---
DATE OF SERVICE DATE: 05/15/20 TIME: 09:17 SUBJECTIVE ROS stable, OBJECTIVE Vital Signs Vital Signs Date Time Temp Pulse Resp B/P (MAP) Pulse Ox O2 Delivery O2 Flow Rate FiO2 05/15/20 08:37 82 115/64 05/15/20 07:38 Nasal Cannula 3.0 05/15/20 07:00 97.2 18 90 97.2 I & 0 Intake and Output 05/15/20 07:00 Intake Total 1420 ml Balance 1420 ml Intake Oral 420 ml IV Total 1000 ml # Voids 2 # Bowel Movements 1 PHYSICAL EXAM Physical Exam GENERAL: NAD HEEN Icterus +, OM moist NECK Supple LUNGS: decreased breath sounds.Non labored CARDIOVASCULAR: S1, S2 ABDOMEN: soft and distended EXTREMITIES: edema.+ No CVA or SP tenderness NEURO alert SKIN No Rash DIAGNOSIS/ASSESSMENT Assessment & Plan BRISA - Pre-renal/Hepatorenal , Non Oliguric(per nursing, uop not recorded), Baseline not available to me , UA ?UTI . CT scan Kidneys unremarkable Improving renal function, could be her baseline Supportive care, avoid nephrotoxins, strict I/O HypoNatremia - resolved Cirrhosis with a large amount of ascites -s/p paracentesis 7.7 lts on 05/12 . Paracentesis today.Currently on Aldactone . GI managing Acute hypoxic respiratory failure- COVID negative COPD Severe ETOH abuse -remote stopped 1977, Only Occasional now Diabetes GERD- on PPI COMMENT/RELEVANT DATA Meds Current Medications Medications (Trade) Dose Ordered Sig/Jena Start Time Stop Time Status Last Admin Dose Admin Acetaminophen (Tylenol) 650 mg PRN Q4HRS PRN 05/11/20 14:45 Albumin Human 100 ml @ 100 mls/hr 1X ONCE 05/13/20 13:45 05/13/20 14:44 DC 05/13/20 15:20 100 MLS/HR Albuterol Sulfate (Ventolin Neb Soln) 2.5 mg PRN Q4HRS PRN 05/11/20 14:45 Albuterol/ Ipratropium (Duoneb) 3 ml PRN Q4HRS PRN 05/11/20 14:45 Bupropion HCl (Wellbutrin Xl) 300 mg DAILY 05/11/20 15:00 05/15/20 08:36 300 MG Ceftriaxone Sodium (Rocephin) 1 gm Q24H 05/11/20 15:00 05/14/20 16:33 1 GM Dextrose (Dextrose 50%-Water Syringe) 12.5 gm PRN Q15MIN PRN 05/11/20 14:45 Diphenhydramine HCl (Benadryl) 25 mg PRN Q4HRS PRN 05/11/20 14:45 05/13/20 22:15 25 MG Docusate Sodium (Colace) 100 mg PRN BID PRN 05/11/20 14:45 Enoxaparin Sodium (Lovenox 30mg Syringe) 30 mg Q24H 05/11/20 16:00 05/14/20 16:33 30 MG Fluoxetine HCl (PROzac) 80 mg HS 05/11/20 21:00 05/14/20 20:24 80 MG Furosemide (Lasix) 60 mg DAILY 05/11/20 15:00 05/15/20 08:37 60 MG Guaifenesin (Robitussin) 200 mg PRN Q4HRS PRN 05/11/20 14:45 Insulin Glargine (Lantus Syringe) 10 unit QHS 05/11/20 21:00 05/14/20 20:23 10 UNIT Insulin Human Lispro (HumaLOG) 0-5 UNITS TIDWMEALS 05/11/20 17:00 05/14/20 18:43 2 UNITS Lactobacillus Rhamnosus (Culturelle) 1 cap DAILY 05/11/20 15:00 05/15/20 08:36 1 CAP Lidocaine HCl (Buffered Lidocaine 1%) 5 ml 1X ONCE 05/13/20 14:45 05/13/20 14:46 DC 05/13/20 14:45 5 ML Lorazepam (Ativan Inj) 2 mg PRN Q4HRS PRN 05/11/20 14:45 05/14/20 21:21 2 MG Lorazepam (Ativan) 0.5 mg PRN Q4HRS PRN 05/11/20 14:45 05/14/20 12:22 0.5 MG Metoprolol Succinate (Toprol Xl) 50 mg DAILY 05/11/20 15:00 05/15/20 08:37 50 MG Morphine Sulfate (Morphine Sulfate) 4 mg PRN Q2HR PRN 05/11/20 00:45 05/12/20 00:44 DC Ondansetron HCl (Zofran) 4 mg PRN Q4HRS PRN 05/11/20 14:45 Pantoprazole Sodium (Protonix) 40 mg DAILYAC 05/11/20 15:00 05/15/20 07:30 40 MG Sodium Monofluorophosphate (Fleet Adult) 133 ml PRN DAILY PRN 05/11/20 14:45 Sodium Chloride 1,000 ml @ 75 mls/hr [id number] 05/11/20 14:45 05/14/20 20:24 75 MLS/HR Sodium Chloride (Normal Saline Flush) 3 ml QSHIFT PRN 05/11/20 14:45 Spironolactone (Aldactone) 50 mg BID 05/11/20 15:00 05/15/20 08:36 50 MG Lab Laboratory Tests Test 05/14/20 12:38 05/14/20 16:38 05/14/20 19:50 05/15/20 07:36 Glucose (Fingerstick) 137 mg/dL (70-99) 190 mg/dL (70-99) 123 mg/dL (70-99) 85 mg/dL (70-99) Results All relevant outside records, renal labs, imaging studies, telemetry/EKG's were reviewed. Justicifation of Admission Dx: Justifications for Admission: Justification of Admission Dx: Yes LEIDY KAUFMAN MD May 15, 2020 09:17
[2020-05-15 09:32] LABS: CALCIUM 8.7 mg/dL (8.5-10.1); CREATININE 1.8 mg/dL (0.6-1.0); GFR 28.3; POTASSIUM 3.8 mmol/L (3.5-5.1)
--- NOTE | 2020-05-15 10:12 | NUR ---
DEB following for discharge planning. Spoke with RN and reviewed chart. Possible discharge back to [facility] today. Awaiting consents for possible paracentesis. DEB LVM for the son Jeremias ([phone]). DEB spoke with Alla from [facility] and they don't have any other contact information for family of this pt. Spoke with APS worker yesterday who stated she had been trying and unable to reach pt's son. Pt apparently has items in an apartment that the landlord would like to get to the son. DEB following. Addendum: 05/15/20 at 1454 by MORIAH BOYD Pt will not discharge today per Dr. Membreno. Awaiting results of the paracentesis. Update to [facility]. Update to RN. Addendum: 05/15/20 at 1549 by MORIAH BOYD Updated clinicals including therapy notes faxed to Alla at [facility] per her request.
[2020-05-15] MEDS: IV NORMAL SALINE 1000ML BAG 1,000 ML IV SCH ×2 (10:26→20:59)
--- NOTE | 2020-05-15 10:33 | PDOC ---
Date of Service: DATE: 05/15/20 TIME: 10:27 Subjective: Subjective: Groaning - seems more altered today. Objective: Objective: D/w nurse - confused, abdomen hard. Vital Signs: Vital Signs Date Time Temp Pulse Resp B/P (MAP) Pulse Ox O2 Delivery O2 Flow Rate FiO2 05/15/20 08:37 82 115/64 05/15/20 07:38 Nasal Cannula 3.0 05/15/20 07:00 97.2 18 90 97.2 Labs: Laboratory Tests Test 05/14/20 12:38 05/14/20 16:38 05/14/20 19:50 05/15/20 07:36 Glucose (Fingerstick) 137 mg/dL 190 mg/dL 123 mg/dL 85 mg/dL Test 05/15/20 08:30 Sodium Level 136 mmol/L Potassium Level 3.8 mmol/L Chloride Level 105 mmol/L Carbon Dioxide Level 20 mmol/L Anion Gap 11 Blood Urea Nitrogen 28 mg/dL Creatinine 1.8 mg/dL Estimated GFR (Cockcroft-Gault) 28.3 Glucose Level 84 mg/dL Calcium Level 8.7 mg/dL BLOOD CULTURE Preliminary NO GROWTH AFTER 3 DAYS Note [facility] Accession Number: [id number] TESTS RESULT FLAG UNITS REF RANGE LAB Clinician Provided Cytology Information No. of containers..01 Other (Miscellaneous) Source: 01 ASCITES DIAGNOSIS: 02 ASCITES NEGATIVE FOR MALIGNANT CELLS. REACTIVE MESOTHELIAL CELLS AND FEW NEUTROPHILS AND LYMPHOCYTES PRESENT. THIS INTERPRETATION INCLUDES EVALUATION OF A CELL BLOCK. Signed out by: 02 Candelario Alvarez MD, Pathologist NPI- [id number] Performed by: 01 Tanisha Russo [employer] ([facility]) Gross description: 01 27ML, YELLOW, 1TP 1CB /LCS 05/13/2020 0648 Local PE: GEN: phlebotomy present - pt cries out when alcohol swab touches her arm LUNGS: diminished anteriorly, NC 3L HEART: RR ABD: more distended, seems tight - also flexing? NEURO/PSYCH: confused, groaning A/P: Cirrhosis (likely alcohol), ascites s/p paracentesis 05/12/20, right inguinal lymphadenopathy BRISA, UTI, encephalopathy Hep C Ab + (PCR negative) Rapid COVID negative 05/12 -- Abdomen seems worse today, also mentation. Will ask for repeat paracentesis w/ cell count. Justicifation of Admission Dx: Justifications for Admission: Justification of Admission Dx: Yes MANISH CUELLO May 15, 2020 10:33
--- NOTE | 2020-05-15 11:11 | PDOC ---
PROGRESS NOTES Date of Service: DATE: 05/15/20 TIME: 11:10 Chief Complaint Chief Complaint Acute metabolic encephalopathy Chronic lung disease with no acute superimposed process. 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 Chronic appearing superior endplate compression deformity at L1 and posterior decompression at L3 and L4 with hetal and pedicle screw construct posterior fusion pt/ot hyponatremia, HYPOVOLEMIC BRISA NEPHROLOGY CONSULT appreciated diabetes SS INSULIN GERD PROTONIX TOBACCO ABUSE DISORDER Cessation education provided serial LFTS/ammonia level therapeutic paracentesis with fluid analysis Ultrasound-guided paracentesis 05/12/2020 2:07 PM Procedure: The risks and benefits of the procedure were discussed the patient. Informed consent was obtained. A timeout procedure was performed. Sonographic evaluation of the abdomen was performed demonstrating ascites . The right lower quadrant was prepped and draped using maximum sterile barrier technique. 1% lidocaine without epinephrine was administered for local anesthesia. Real-time ultrasonographic guidance was used in passing a 5 [employer] catheter into the fluid collection. 7.7 L of serous ascites was removed. The catheter was removed and pressure held to achieve hemostasis. A sterile dressing was applied. Impression: Successful ultrasound-guided paracentesis Plan: will need paracentesis since her abdomen has gotten more distended Patient seems to be at baseline She lives in assisted living facility where she will transition after this hospital stay. Monitor urinary output History of Present Illness History of Present Illness ADMIT DATE: 05/11/2020 ADMISSION HISTORY CHIEF COMPLAINT: Abdominal pain and shortness of air, ascites seen on CT. HISTORY OF PRESENT ILLNESS: This is a 65-year-old female with a remote history of alcohol abuse, was seen in the ER after transfer from [facility] for abdominal pain and shortness of breath. She states that her abdomen is distended and she was having some trouble breathing. Denies cough or fever. When seen in the ER, she had evidence of moderate ascites, also enlarged inguinal lymph node present. She has a long history of smoking. She states she stopped drinking heavily in 1977, but still drinks occasionally. She was found to have a large superficial lymph node measuring 3.78 cm in diameter in the right inguinal region 05/12/2020 Patient pleasantly confused. She wants her oxygen saturation removed from her finger. Oriented in person but not really in situation or place or time. Hemodynamically stable, awaiting for paracentesis 05/13/2020 No acute events reported overnight, case discussed with nursing staff patient in no acute distress no complaints during my visit still encephalopathic and unable to have a meaningful conversation she does not seem to be in acute distress no respiratory distress noted either. 05/14/2020 No acute events reported overnight, case discussed with nursing staff patient in no acute distress no complaints during my visit Vitals Vitals Vital Signs Date Time Temp Pulse Resp B/P (MAP) Pulse Ox O2 Delivery O2 Flow Rate FiO2 05/15/20 08:37 82 115/64 05/15/20 07:38 Nasal Cannula 3.0 05/15/20 07:00 97.2 18 90 97.2 Physical Exam Physical Exam GENERAL: Mildly confused, well nourished, in no acute distress. HEENT: Throat and pharynx are clear. Extraocular muscles are intact. Visual [place] are full to confrontation. She does have some jaundice present., scleral icteric NECK: Supple, without stridor or JVD. CARDIOVASCULAR: Regular rate without murmur, S3 or S4. LUNGS: Clear to auscultation. ABDOMEN: Soft, moderate distention, diffuse tenderness to palpation. I am not able to appreciate ascites fluid wave. SKIN: Warm and dry. BACK: Without CVA tenderness. EXTREMITIES: No clubbing, cyanosis or edema. NEUROLOGIC: Alert but confused, disoriented to place. No focal deficits are present. Muscles of mastication are symmetric bilaterally. Affect is normal. Mood is normal. She is confused to details. General: Alert, Cooperative, No acute distress Extremities: No cyanosis Labs LABS Laboratory Tests Test 05/14/20 12:38 05/14/20 16:38 05/14/20 19:50 05/15/20 07:36 Glucose (Fingerstick) 137 mg/dL (70-99) 190 mg/dL (70-99) 123 mg/dL (70-99) 85 mg/dL (70-99) Test 05/15/20 08:30 05/15/20 10:42 Sodium Level 136 mmol/L (136-145) Potassium Level 3.8 mmol/L (3.5-5.1) Chloride Level 105 mmol/L (98-107) Carbon Dioxide Level 20 mmol/L (21-32) Anion Gap 11 (6-14) Blood Urea Nitrogen 28 mg/dL (7-20) Creatinine 1.8 mg/dL (0.6-1.0) Estimated GFR (Cockcroft-Gault) 28.3 Glucose Level 84 mg/dL (70-99) Calcium Level 8.7 mg/dL (8.5-10.1) Glucose (Fingerstick) 103 mg/dL (70-99) Assessment and Plan Assessmemt and Plan Problems Medical Problems: (1) Abdominal pain Status: Acute (2) Ascites Status: Acute Comment Review of Relevant I have reviewed the following items kelvin (where applicable) has been applied. Labs Laboratory Tests Test 05/13/20 11:15 05/13/20 11:53 05/13/20 17:03 05/13/20 19:12 Sodium Level 137 mmol/L (136-145) Potassium Level 3.8 mmol/L (3.5-5.1) Chloride Level 105 mmol/L (98-107) Carbon Dioxide Level 23 mmol/L (21-32) Anion Gap 9 (6-14) Blood Urea Nitrogen 32 mg/dL (7-20) Creatinine 1.9 mg/dL (0.6-1.0) Estimated GFR (Cockcroft-Gault) 26.6 Glucose Level 125 mg/dL (70-99) Calcium Level 9.0 mg/dL (8.5-10.1) Phosphorus Level 2.9 mg/dL (2.6-4.7) Albumin 2.2 g/dL (3.4-5.0) Glucose (Fingerstick) 133 mg/dL (70-99) 129 mg/dL (70-99) 148 mg/dL (70-99) Test 05/14/20 07:00 05/14/20 12:38 05/14/20 16:38 05/14/20 19:50 Sodium Level 135 mmol/L (136-145) Potassium Level 3.6 mmol/L (3.5-5.1) Chloride Level 102 mmol/L (98-107) Carbon Dioxide Level 22 mmol/L (21-32) Anion Gap 11 (6-14) Blood Urea Nitrogen 31 mg/dL (7-20) Creatinine 1.9 mg/dL (0.6-1.0) Estimated GFR (Cockcroft-Gault) 26.6 Glucose Level 139 mg/dL (70-99) Calcium Level 8.6 mg/dL (8.5-10.1) Glucose (Fingerstick) 137 mg/dL (70-99) 190 mg/dL (70-99) 123 mg/dL (70-99) Test 05/15/20 07:36 05/15/20 08:30 05/15/20 10:42 Glucose (Fingerstick) 85 mg/dL (70-99) 103 mg/dL (70-99) Sodium Level 136 mmol/L (136-145) Potassium Level 3.8 mmol/L (3.5-5.1) Chloride Level 105 mmol/L (98-107) Carbon Dioxide Level 20 mmol/L (21-32) Anion Gap 11 (6-14) Blood Urea Nitrogen 28 mg/dL (7-20) Creatinine 1.8 mg/dL (0.6-1.0) Estimated GFR (Cockcroft-Gault) 28.3 Glucose Level 84 mg/dL (70-99) Calcium Level 8.7 mg/dL (8.5-10.1) Laboratory Tests Test 05/14/20 12:38 05/14/20 16:38 05/14/20 19:50 05/15/20 07:36 Glucose (Fingerstick) 137 mg/dL (70-99) 190 mg/dL (70-99) 123 mg/dL (70-99) 85 mg/dL (70-99) Test 05/15/20 08:30 05/15/20 10:42 Sodium Level 136 mmol/L (136-145) Potassium Level 3.8 mmol/L (3.5-5.1) Chloride Level 105 mmol/L (98-107) Carbon Dioxide Level 20 mmol/L (21-32) Anion Gap 11 (6-14) Blood Urea Nitrogen 28 mg/dL (7-20) Creatinine 1.8 mg/dL (0.6-1.0) Estimated GFR (Cockcroft-Gault) 28.3 Glucose Level 84 mg/dL (70-99) Calcium Level 8.7 mg/dL (8.5-10.1) Glucose (Fingerstick) 103 mg/dL (70-99) Microbiology 05/11/20 Blood Culture - Preliminary, Resulted NO GROWTH AFTER 3 DAYS 05/10/20 Urine Culture - Final, Complete 05/10/20 Antimicrobic Susceptibility - Final, Complete Medications Current Medications Lorazepam (Ativan Inj) 1 mg 1X ONCE IVP Last administered on 05/11/20at 00:29; Start 05/11/20 at 00:30; Stop 05/11/20 at 00:31; Status DC Ondansetron HCl (Zofran) 4 mg PRN Q8HRS PRN IV NAUSEA/VOMITING 1ST CHOICE; Start 05/11/20 at 00:45; Stop 05/11/20 at 14:59; Status DC Morphine Sulfate (Morphine Sulfate) 4 mg PRN Q2HR PRN IV SEVERE PAIN 7-10; Start 05/11/20 at 00:45; Stop 05/12/20 at 00:44; Status DC Furosemide (Lasix) 60 mg DAILY PO Last administered on 05/15/20at 08:37; Start 05/11/20 at 15:00 Metoprolol Succinate (Toprol Xl) 50 mg DAILY PO Last administered on 05/15/20 08:37; Start 05/11/20 at 15:00 Bupropion HCl (Wellbutrin Xl) 300 mg DAILY PO Last administered on 05/15/20at 08:36; Start 05/11/20 at 15:00 Fluoxetine HCl (PROzac) 80 mg HS PO Last administered on 05/14/20at 20:24; Start 05/11/20 at 21:00 Insulin Glargine (Lantus Syringe) 5 unit QHS SQ ; Start 05/11/20 at 21:00; Stop 05/11/20 at 14:33; Status DC Lactobacillus Rhamnosus (Culturelle) 1 cap DAILY PO Last administered on 05/15/20 08:36; Start 05/11/20 at 15:00 Pantoprazole Sodium (Protonix) 40 mg DAILYAC PO Last administered on 05/15/20 07:30; Start 05/11/20 at 15:00 Spironolactone (Aldactone) 50 mg BID PO Last administered on 2/4/21at 08:36; Start 05/11/20 at 15:00 Insulin Glargine (Lantus Syringe) 10 unit QHS SQ Last administered on 05/14/20at 20:23; Start 05/11/20 at 21:00 Insulin Human Lispro (HumaLOG) 0-5 UNITS TIDWMEALS SQ Last administered on 05/14/20at 18:43; Start 05/11/20 at 17:00 Dextrose (Dextrose 50%-Water Syringe) 12.5 gm PRN Q15MIN PRN IV SEE COMMENTS; Start 05/11/20 at 14:45 Ceftriaxone Sodium (Rocephin) 1 gm Q24H IVP Last administered on 05/14/20 16:3 3; Start 05/11/20 at 15:00 Sodium Chloride (Normal Saline Flush) 3 ml QSHIFT PRN IV AFTER MEDS AND BLOOD DRAWS; Start 05/11/20 at 14:45 Sodium Chloride 1,000 ml @ 75 mls/hr [id number] IV Last administered on 05/15/20at 10:26; Start 05/11/20 at 14:45 Ondansetron HCl (Zofran) 4 mg PRN Q4HRS PRN IV NAUSEA/VOMITING; Start 05/11/20 at 14:45 Acetaminophen (Tylenol) 650 mg PRN Q4HRS PRN PO TEMP OVER 100.4F OR MILD PAIN; Start 05/11/20 at 14:45 Sodium Monofluorophosphate (Fleet Adult) 133 ml PRN DAILY PRN [place] CONSTIPATION; Start 05/11/20 at 14:45 Diphenhydramine HCl (Benadryl) 25 mg PRN Q4HRS PRN IVP ITCHING Last administered on 05/13/20at 22:15; Start 05/11/20 at 14:45 Docusate Sodium (Colace) 100 mg PRN BID PRN PO HARD STOOLS; Start 05/11/20 at 14:45 Albuterol Sulfate (Ventolin Neb Soln) 2.5 mg PRN Q4HRS PRN NEB SHORTNESS OF BREATH; Start 05/11/20 at 14:45 Albuterol/ Ipratropium (Duoneb) 3 ml PRN Q4HRS PRN NEB SHORTNESS OF BREATH; Start 05/11/20 at 14:45 Guaifenesin (Robitussin) 200 mg PRN Q4HRS PRN PO COUGH; Start 05/11/20 at 14:45 Lorazepam (Ativan) 0.5 mg PRN Q4HRS PRN PO ANXIETY / AGITATION Last administered on 05/14/20at 12:22; Start 05/11/20 at 14:45 Lorazepam (Ativan Inj) 2 mg PRN Q4HRS PRN IV ANXIETY / AGITATION Last administered on 05/14/20at 21:21; Start 05/11/20 at 14:45 Enoxaparin Sodium (Lovenox 30mg Syringe) 30 mg Q24H SQ Last administered on 05/14/20at 16:33; Start 05/11/20 at 16:00 Lidocaine HCl (Buffered Lidocaine 1%) 3 ml STK-MED ONCE .ROUTE ; Start 05/12/20 at 14:25; Stop 05/12/20 at 14:25; Status DC Albumin Human 100 ml @ As Directed STK-MED ONCE IV ; Start 05/12/20 at 15:27; Stop 05/12/20 at 15:27; Status DC Albumin Human 100 ml @ 100 mls/hr 1X ONCE IV Last administered on 05/12/20at 15:40; Start 05/12/20 at 15:45; Stop 05/12/20 at 16:44; Status DC Albumin Human 100 ml @ 100 mls/hr 1X ONCE IV Last administered on 05/12/20at 16:41; Start 05/12/20 at 15:45; Stop 05/12/20 at 16:44; Status DC Albumin Human 100 ml @ 100 mls/hr 1X ONCE IV Last administered on 05/13/20at 15:20; Start 05/13/20 at 13:45; Stop 05/13/20 at 14:44; Status DC Lidocaine HCl (Buffered Lidocaine 1%) 3 ml STK-MED ONCE .ROUTE ; Start 05/13/20 at 14:29; Stop 05/13/20 at 14:30; Status DC Lidocaine HCl (Buffered Lidocaine 1%) 5 ml 1X ONCE INJ Last administered on 05/13/20at 14:45; Start 05/13/20 at 14:45; Stop 05/13/20 at 14:46; Status DC Active Scripts Active Reported Spironolactone 50 Mg Tablet 1 Tab PO BID Protonix (Pantoprazole Sodium) 20 Mg Tablet.dr 40 Mg PO DAILY Humalog (Insulin Lispro) 100 Unit/1 Ml Vial 100 Unit SQ QIDACHS Toprol XL (Metoprolol Succinate) 50 Mg Tab.er.24h 50 Mg PO DAILY Levemir (Insulin Detemir) 100 Unit/1 Ml Vial 5 Unit SQ HS Lasix (Furosemide) 20 Mg Tablet 60 Mg PO DAILY Probiotic (Lactobacillus Acidophilus) 1 Each Capsule 1 Each PO DAILY Fluoxetine Hcl 40 Mg Capsule 2 Cap PO HS Bupropion Xl (Bupropion Hcl) 300 Mg Tab.er.24h 1 Tab PO DAILY Vitals/I & O Vital Sign - Last 24 Hours 05/14/20 05/14/20 05/14/20 05/14/20 15:00 19:00 20:00 23:00 Temp 97.7 97.7 97.6 97.7 97.7 97.6 Pulse 70 71 84 Resp 18 20 17 B/P (MAP) 106/58 (74) 98/54 (69) 93/80 (84) Pulse Ox 96 91 92 O2 Delivery Room Air Nasal Cannula Nasal Cannula Nasal Cannula O2 Flow Rate 3.0 3.0 3.0 05/15/20 05/15/20 05/15/20 05/15/20 03:00 07:00 07:38 08:37 Temp 98.1 97.2 98.1 97.2 Pulse 87 82 82 Resp 17 18 B/P (MAP) 107/66 (80) 115/64 (81) 115/64 Pulse Ox 92 90 O2 Delivery Nasal Cannula Nasal Cannula Nasal Cannula O2 Flow Rate 3.0 3.0 3.0 Intake and Output 05/14/20 05/14/20 05/15/20 15:00 23:00 07:00 Intake Total 1420 ml 0 ml 0 ml Balance 1420 ml 0 ml 0 ml Nutrition Consultation Dietary Evaluation: Recommendations by RD: Dietary education by RD Comments: clarified diet to ADA/Cardiac ( low Na with ascites) Expected Outcomes/Goals: to meet >75% est nutr needs Malnutrition Findings: Food and Nutrition Intake (Sev: <50% est energy req 5days Weight Status: Appropriate Fluid Accumulation (Severe): Severe Justicifation of Admission Dx: Justifications for Admission: Justification of Admission Dx: Yes CASA DIAZ MD May 15, 2020 11:11
[2020-05-15] MEDS ORDERED: LIDOCAINE WITH 8.4% SOD BICARB 3 ML DISP.SYRIN. ONE (12:35)
[2020-05-15] MEDS ORDERED: LIDOCAINE WITH 8.4% SOD BICARB 3 ML DISP.SYRIN. IJ ONE (12:45)
[2020-05-15] MEDS ORDERED: ALBUMIN HUMAN 25% 100 ML IV ONE ×2 (12:50→13:00)
[2020-05-15] MEDS ORDERED: ALBUMIN HUMAN 25% 50 ML IV ONE (13:00)
--- NOTE | 2020-05-15 13:13 | NUR ---
Report given to Tonie DOUGHERTY on 6S. 8400 ml removed via paracentesis. Patient stable. VS WNL. Notified Tonie DOUGHERTY to give 150ml 25% Albumin. RN started and administered in EMAR 1st bottle. Second bottle (50ml) ordered and needs administered.
[2020-05-15 15:09] LABS: BF CLARITY HAZY; BF COLOR YELLOW; BF PMN % 25 %; BF RBC COUNT 260 /cmm (Not Established); BF SOURCE ASCITES; BF WBC COUNT 71 /cmm (Not Established)
[2020-05-15 15:10] LABS: BF MON % 70 %; BF OTHER % 5 %
[2020-05-15] MEDS: cefTRIAXone IV Push 1 GM VIAL. IVP SCH (15:27)
[2020-05-15] MEDS: ENOXAPARIN 30 MG/0.3 ML SYRINGE. SQ SCH (15:28)
[2020-05-15] MEDS: FLUoxetine HCL 20 MG CAPSULE PO SCH (20:59)
[2020-05-15] MEDS: INSULIN GLARGINE SYRINGE. SQ SCH (21:06)
[2020-05-16 03:56] VITALS: BP 95/45
[2020-05-16 05:40] LABS: CALCIUM 8.3 mg/dL (8.5-10.1); CREATININE 1.6 mg/dL (0.6-1.0); GFR 32.5; POTASSIUM 3.2 mmol/L (3.5-5.1)
[2020-05-16 07:00] VITALS: BP 105/54
[2020-05-16] MEDS ORDERED: POTASSIUM CHLORIDE 20 MEQ TABLET.ER. PO ONE (08:00)
[2020-05-16] MEDS ORDERED: CEFDINIR 300 MG CAPSULE PO SCH (08:00)
[2020-05-16] MEDS: INSULIN LISPRO 300 UNITS/3 ML VIAL. SQ SCH ×2 (08:00→12:00)
[2020-05-16] MEDS: PANTOPRAZOLE 40 MG TABLET.DR. PO SCH (08:54)
[2020-05-16] MEDS: LACTOBACILLUS RHAMNOSUS GG 1 CAPSULE. PO SCH (08:54)
[2020-05-16] MEDS: buPROPion XL 150 MG TAB.ER.24H. PO SCH (08:54)
[2020-05-16] MEDS: METOPROLOL SUCC 24HR ER 50 MG TAB.ER.24H. PO SCH (08:55)
[2020-05-16] MEDS: SPIRONOLACTONE 25 MG TABLET PO SCH (08:56)
[2020-05-16] MEDS: FUROSEMIDE 40 MG TABLET. PO SCH (08:59)
--- NOTE | 2020-05-16 09:30 | PDOC ---
DATE OF SERVICE DATE: 05/16/20 TIME: 09:29 SUBJECTIVE ROS stable, OBJECTIVE Vital Signs Vital Signs Date Time Temp Pulse Resp B/P (MAP) Pulse Ox O2 Delivery O2 Flow Rate FiO2 05/16/20 08:55 73 105/54 05/16/20 07:00 97.3 22 89 Nasal Cannula 3.0 97.3 I & 0 Intake and Output 05/16/20 07:00 Intake Total 1710 ml Output Total 8400 ml Balance -6690 ml Intake Oral 560 ml IV Total 1150 ml Drainage Total 8400 ml # Voids 9 # Bowel Movements 3 PHYSICAL EXAM Physical Exam GENERAL: NAD HEEN Icterus +, OM moist NECK Supple LUNGS: decreased breath sounds.Non labored CARDIOVASCULAR: S1, S2 ABDOMEN: soft and distended EXTREMITIES: edema.+ No CVA or SP tenderness NEURO alert SKIN No Rash DIAGNOSIS/ASSESSMENT Assessment & Plan BRISA - Pre-renal/Hepatorenal , Non Oliguric(per nursing, uop not recorded), Baseline not available to me , UA ?UTI . CT scan Kidneys unremarkable Improving renal function, could be her baseline Supportive care, avoid nephrotoxins, strict I/O HypoNatremia - resolved Cirrhosis with a large amount of ascites -s/p paracentesis 7.7 lts on 05/12 . Paracentesis today.Currently on Aldactone . GI managing Acute hypoxic respiratory failure- COVID negative COMMENT/RELEVANT DATA Meds Current Medications Medications (Trade) Dose Ordered Sig/Jena Start Time Stop Time Status Last Admin Dose Admin Acetaminophen (Tylenol) 650 mg PRN Q4HRS PRN 05/11/20 14:45 Albumin Human 50 ml @ 50 mls/hr 1X ONCE 05/15/20 13:00 05/15/20 13:59 DC 05/15/20 13:57 50 MLS/HR Albuterol Sulfate (Ventolin Neb Soln) 2.5 mg PRN Q4HRS PRN 05/11/20 14:45 Albuterol/ Ipratropium (Duoneb) 3 ml PRN Q4HRS PRN 05/11/20 14:45 Bupropion HCl (Wellbutrin Xl) 300 mg DAILY 05/11/20 15:00 05/16/20 08:54 300 MG Cefdinir (Omnicef) 300 mg DAILY08 05/16/20 08:00 05/16/20 08:56 300 MG Ceftriaxone Sodium (Rocephin) 1 gm Q24H 05/11/20 15:00 05/15/20 17:00 DC 05/15/20 15:27 1 GM Dextrose (Dextrose 50%-Water Syringe) 12.5 gm PRN Q15MIN PRN 05/11/20 14:45 Diphenhydramine HCl (Benadryl) 25 mg PRN Q4HRS PRN 05/11/20 14:45 05/13/20 22:15 25 MG Docusate Sodium (Colace) 100 mg PRN BID PRN 05/11/20 14:45 Enoxaparin Sodium (Lovenox 30mg Syringe) 30 mg Q24H 05/11/20 16:00 05/15/20 15:28 30 MG Fluoxetine HCl (PROzac) 80 mg HS 05/11/20 21:00 05/15/20 20:59 80 MG Furosemide (Lasix) 60 mg DAILY 05/11/20 15:00 05/16/20 08:59 40 MG Guaifenesin (Robitussin) 200 mg PRN Q4HRS PRN 05/11/20 14:45 Insulin Glargine (Lantus Syringe) 10 unit QHS 05/11/20 21:00 05/15/20 21:06 10 UNIT Insulin Human Lispro (HumaLOG) 0-5 UNITS TIDWMEALS 05/11/20 17:00 05/14/20 18:43 2 UNITS Lactobacillus Rhamnosus (Culturelle) 1 cap DAILY 05/11/20 15:00 05/16/20 08:54 1 CAP Lidocaine HCl (Buffered Lidocaine 1%) 4 ml 1X ONCE 05/15/20 12:45 05/15/20 12:46 DC 05/15/20 12:45 4 ML Lorazepam (Ativan Inj) 2 mg PRN Q4HRS PRN 05/11/20 14:45 05/14/20 21:21 2 MG Lorazepam (Ativan) 0.5 mg PRN Q4HRS PRN 05/11/20 14:45 05/14/20 12:22 0.5 MG Metoprolol Succinate (Toprol Xl) 50 mg DAILY 05/11/20 15:00 05/16/20 08:55 50 MG Morphine Sulfate (Morphine Sulfate) 4 mg PRN Q2HR PRN 05/11/20 00:45 05/12/20 00:44 DC Ondansetron HCl (Zofran) 4 mg PRN Q4HRS PRN 05/11/20 14:45 Pantoprazole Sodium (Protonix) 40 mg DAILYAC 05/11/20 15:00 05/16/20 08:54 40 MG Potassium Chloride (Klor-Con) 40 meq 1X ONCE 05/16/20 08:00 05/16/20 08:01 DC 05/16/20 08:55 40 MEQ Sodium Monofluorophosphate (Fleet Adult) 133 ml PRN DAILY PRN 05/11/20 14:45 Sodium Chloride 1,000 ml @ 75 mls/hr [id number] 05/11/20 14:45 05/16/20 07:29 DC 05/15/20 20:59 75 MLS/HR Sodium Chloride (Normal Saline Flush) 3 ml QSHIFT PRN 05/11/20 14:45 Spironolactone (Aldactone) 50 mg BID 05/11/20 15:00 05/15/20 08:36 50 MG Lab Laboratory Tests Test 05/15/20 10:42 05/15/20 12:40 05/15/20 17:18 05/15/20 20:50 Glucose (Fingerstick) 103 mg/dL (70-99) 118 mg/dL (70-99) 161 mg/dL (70-99) Body Fluid Source Ascites Body Fluid Color Yellow Body Fluid Clarity Hazy Body Fluid Nucleated Cells 71 /cmm (Not Established) Body Fluid Mononuclear WBCs (%) 70 % Body Fluid Polymorphonuclear Cells 25 % Body Fluid Total RBCs Counted 260 /cmm (Not Established) Body Fluid Other Cells (%) 5 % Test 05/16/20 05:15 05/16/20 08:04 Sodium Level 136 mmol/L (136-145) Potassium Level 3.2 mmol/L (3.5-5.1) Chloride Level 105 mmol/L (98-107) Carbon Dioxide Level 20 mmol/L (21-32) Anion Gap 11 (6-14) Blood Urea Nitrogen 24 mg/dL (7-20) Creatinine 1.6 mg/dL (0.6-1.0) Estimated GFR (Cockcroft-Gault) 32.5 Glucose Level 133 mg/dL (70-99) Calcium Level 8.3 mg/dL (8.5-10.1) Glucose (Fingerstick) 147 mg/dL (70-99) Results All relevant outside records, renal labs, imaging studies, telemetry/EKG's were reviewed. Justicifation of Admission Dx: Justifications for Admission: Justification of Admission Dx: Yes LEIDY KAUFMAN MD May 16, 2020 09:29
[2020-05-16 11:00] VITALS: BP 189/48
[2020-05-16] MEDS ORDERED: FURO40TA4 PO (11:08)
[2020-05-16] MEDS ORDERED: SPIR100T4 PO (11:08)
--- NOTE | 2020-05-16 11:16 | SNU/HH DC ---
DISCHARGE ORDERS DISCHARGE INFORMATION: DISCHARGE DATE: May 16, 2020 FINAL DIAGNOSIS Problems Medical Problems: (1) Abdominal pain Status: Acute (2) Ascites Status: Acute CONDITION ON DISCHARGE: Stable CODE STATUS: Code Status: Full PENITENTIARY: SNF STAY <30 DAYS: Yes POST DISCHARGE ORDERS: WEIGHT BEARING STATUS: As tolerated DIET AFTER DISCHARGE: Low Sodium 2 gm DISCHARGE MEDICATIONS: Home Meds Active Scripts Spironolactone (SPIRONOLACTONE) 100 Mg Tablet, 1 TAB PO DAILY for ascites, #30 TAB 11 Refills Prov:CASA DIAZ MD 05/16/20 Furosemide (FUROSEMIDE) 40 Mg Tablet, 1 TAB PO DAILY for ascites, #30 TAB 5 Refills Prov:CASA DIAZ MD 05/16/20 Reported Medications Pantoprazole Sodium (PROTONIX) 20 Mg Tablet.dr, 40 MG PO DAILY for gerd, TAB 05/11/20 Insulin Lispro (HUMALOG) 100 Unit/1 Ml Vial, 100 UNIT SQ QIDACHS for DM, EACH 05/11/20 Metoprolol Succinate (Toprol XL) 50 Mg Tab.er.24h, 50 MG PO DAILY for FOR HYPERTENSION, TAB.SR 05/11/20 Insulin Detemir (LEVEMIR) 100 Unit/1 Ml Vial, 5 UNIT SQ HS for dm, EACH 05/11/20 Lactobacillus Acidophilus (PROBIOTIC) 1 Each Capsule, 1 EACH PO DAILY for supplement, CAP 05/11/20 Fluoxetine Hcl (FLUOXETINE HCL) 40 Mg Capsule, 2 CAP PO HS for depression, #30 CAP 2 Refills 05/11/20 Bupropion Hcl (BUPROPION XL) 300 Mg Tab.er.24h, 1 TAB PO DAILY for depression, #30 TAB 2 Refills 05/11/20 Discontinued Reported Medications Spironolactone (SPIRONOLACTONE) 50 Mg Tablet, 1 TAB PO BID for ascites, #30 TAB 5 Refills 05/11/20 Furosemide (LASIX) 20 Mg Tablet, 60 MG PO DAILY for htn, TAB 05/11/20 CASA DIAZ MD May 16, 2020 11:16
--- NOTE | 2020-05-16 11:24 | PDOC3 ---
Discharge Summary Visit Information Date of Admission: May 11, 2020 Date of Discharge: May 16, 2020 Admitting Diagnosis Comment: 1. This is a 65-year-old female with a history of chronic lung disease, chronic obstructive pulmonary disease who presents with hypoxia. She is a patient under investigation for COVID. 2. Acute hypoxic respiratory failure. 3. Severe alcohol abuse, reportedly stopped in 1977 but still admits of occasional use. We will continue [facility] protocol. 4. Cirrhosis. We will consult GI. Paracentesis. Differential diagnosis includes malignancy, tuberculosis, lymphoma. Begin Aldactone 100 mg daily. 5. Enlarged right lymph node, large right superficial node measuring 3.78 cm in the inguinal canal. 6. Chronic appearing endplate deformity of L1, posterior decompression of L3 and L4 with pedicle screw construction. 7. Hyponatremia, hypovolemic with acute kidney injury. We will consult Nephrology. 8. Diabetes. We will begin sliding scale insulin. 9. Esophageal reflux disease. Continue Protonix. 10. Tobacco abuse disorder. Cessation education provided. 11. Ascites, therapeutic paracentesis with fluid analysis. will follow., Consult IR Final Diagnosis Problems Medical Problems: (1) Abdominal pain Status: Acute (2) Ascites Status: Acute Acute metabolic encephalopathy resolved Chronic lung disease with no acute superimposed process. COPD SMOKING CESSATION EDUCATION PROVIDED Acute hypoxic respiratory failure resolved O2 SUPPORT, KEEP SPO2 > 93% copd SEVERE ALCOHOL ABUSE , remote stopped 1977, still admits to use on birthday, holidays [facility] PROTOCOL Cirrhosis with a large amount of ascites s/p two large volume paracentesis enlarged right inguinal lymph node.// large right superficial inguinal lymph node measuring 3.7 cm in diameter. NEGATIVE FOR MALIGNANT CELLS. REACTIVE MESOTHELIAL CELLS AND FEW NEUTROPHILS AND LYMPHOCYTES PRESENT. THIS INTERPRETATION INCLUDES EVALUATION OF A CELL BLOCK. Chronic appearing superior endplate compression deformity at L1 and posterior decompression at L3 and L4 with hetal and pedicle screw construct posterior fusion pt/ot hyponatremia, secondary to liver failure from cirrhosis, improved Hepatorenal syndrome? resolved acute renal failure after effective diuresis diabetes SS INSULIN GERD PROTONIX TOBACCO ABUSE DISORDER Cessation education provided serial LFTS/ammonia level therapeutic paracentesis with fluid analysis Ultrasound-guided paracentesis 05/12/2020 2:07 PM Brief Hospital Course Allergies Allergies Coded Allergies Type Severity Reaction Last Updated Verified Latex, Natural Rubber Allergy Intermediate 05/11/20 Yes Vital Signs Vital Signs Date Time Temp Pulse Resp B/P (MAP) Pulse Ox O2 Delivery O2 Flow Rate FiO2 05/16/20 08:55 73 105/54 05/16/20 07:00 97.3 22 89 Nasal Cannula 3.0 97.3 Lab Results Laboratory Tests Test 05/14/20 12:38 05/14/20 16:38 05/14/20 19:50 05/15/20 07:36 Glucose (Fingerstick) 137 mg/dL (70-99) 190 mg/dL (70-99) 123 mg/dL (70-99) 85 mg/dL (70-99) Test 05/15/20 08:30 05/15/20 10:42 05/15/20 12:40 05/15/20 17:18 Sodium Level 136 mmol/L (136-145) Potassium Level 3.8 mmol/L (3.5-5.1) Chloride Level 105 mmol/L (98-107) Carbon Dioxide Level 20 mmol/L (21-32) Anion Gap 11 (6-14) Blood Urea Nitrogen 28 mg/dL (7-20) Creatinine 1.8 mg/dL (0.6-1.0) Estimated GFR (Cockcroft-Gault) 28.3 Glucose Level 84 mg/dL (70-99) Calcium Level 8.7 mg/dL (8.5-10.1) Glucose (Fingerstick) 103 mg/dL (70-99) 118 mg/dL (70-99) Body Fluid Source Ascites Body Fluid Color Yellow Body Fluid Clarity Hazy Body Fluid Nucleated Cells 71 /cmm (Not Established) Body Fluid Mononuclear WBCs (%) 70 % Body Fluid Polymorphonuclear Cells 25 % Body Fluid Total RBCs Counted 260 /cmm (Not Established) Body Fluid Other Cells (%) 5 % Test 05/15/20 20:50 05/16/20 05:15 05/16/20 08:04 Glucose (Fingerstick) 161 mg/dL (70-99) 147 mg/dL (70-99) Sodium Level 136 mmol/L (136-145) Potassium Level 3.2 mmol/L (3.5-5.1) Chloride Level 105 mmol/L (98-107) Carbon Dioxide Level 20 mmol/L (21-32) Anion Gap 11 (6-14) Blood Urea Nitrogen 24 mg/dL (7-20) Creatinine 1.6 mg/dL (0.6-1.0) Estimated GFR (Cockcroft-Gault) 32.5 Glucose Level 133 mg/dL (70-99) Calcium Level 8.3 mg/dL (8.5-10.1) Laboratory Tests Test 05/15/20 12:40 05/15/20 17:18 05/15/20 20:50 05/16/20 05:15 Body Fluid Source Ascites Body Fluid Color Yellow Body Fluid Clarity Hazy Body Fluid Nucleated Cells 71 /cmm (Not Established) Body Fluid Mononuclear WBCs (%) 70 % Body Fluid Polymorphonuclear Cells 25 % Body Fluid Total RBCs Counted 260 /cmm (Not Established) Body Fluid Other Cells (%) 5 % Glucose (Fingerstick) 118 mg/dL (70-99) 161 mg/dL (70-99) Sodium Level 136 mmol/L (136-145) Potassium Level 3.2 mmol/L (3.5-5.1) Chloride Level 105 mmol/L (98-107) Carbon Dioxide Level 20 mmol/L (21-32) Anion Gap 11 (6-14) Blood Urea Nitrogen 24 mg/dL (7-20) Creatinine 1.6 mg/dL (0.6-1.0) Estimated GFR (Cockcroft-Gault) 32.5 Glucose Level 133 mg/dL (70-99) Calcium Level 8.3 mg/dL (8.5-10.1) Test 05/16/20 08:04 Glucose (Fingerstick) 147 mg/dL (70-99) Brief Hospital Course ADMIT DATE: 05/11/2020 ADMISSION HISTORY CHIEF COMPLAINT: Abdominal pain and shortness of air, ascites seen on CT. HISTORY OF PRESENT ILLNESS: This is a 65-year-old female with a remote history of alcohol abuse, was seen in the ER after transfer from [facility] for abdominal pain and shortness of breath. She states that her abdomen is distended and she was having some trouble breathing. Denies cough or fever. When seen in the ER, she had evidence of moderate ascites, also enlarged inguinal lymph node present. She has a long history of smoking. She states she stopped drinking heavily in 1977, but still drinks occasionally. She was found to have a large superficial lymph node measuring 3.78 cm in diameter in the right inguinal region 05/12/2020 Patient pleasantly confused. She wants her oxygen saturation removed from her finger. Oriented in person but not really in situation or place or time. Hemodynamically stable, awaiting for paracentesis 05/13/2020 No acute events reported overnight, case discussed with nursing staff patient in no acute distress no complaints during my visit still encephalopathic and unable to have a meaningful conversation she does not seem to be in acute distress no respiratory distress noted either. 05/14/2020 No acute events reported overnight, case discussed with nursing staff patient in no acute distress no complaints during my visit 05/15/2020 Concerns due to recurrence of ascites. She was sent for a paracentesis which yielded an excess of 8 L of peritoneal fluid. There was a concern for SBP and she was kept on antibiotics during her hospital stay but given the resolution of her symptoms she will be discharged hopefully in the next 24 hours 05/16/2020 Patient with no acute events reported overnight. She seems much better after her paracentesis and her renal function also improved. I have adjusted the diuretics moving forward with a ratio of 4200 of Lasix to spironolactone. Her hyponatremia resolved overall she seems improved nevertheless given the underlying liver disease she has a guarded prognosis. Very high risk for readmission dietary counseling was done she lives in assisted living facility where hopefully they will keep the salt intake at a minimum greater than 35 minutes were spent in the discharge process with the patient in counseling coordination of care and arrangements for safe transfer back to her facility GENERAL: Mildly confused, well nourished, in no acute distress. HEENT: Throat and pharynx are clear. Extraocular muscles are intact. Visual lockwood are full to confrontation. She does have some jaundice present., scleral icteric NECK: Supple, without stridor or JVD. CARDIOVASCULAR: Regular rate without murmur, S3 or S4. LUNGS: Clear to auscultation. ABDOMEN: Soft, moderate distention, diffuse tenderness to palpation. I am not able to appreciate ascites fluid wave. Assessment Assessment IMAGING REPORT Signed PATIENT: OSVALDO RUGGIERO ACCOUNT: [id number] : 1955 LOCATION: ER AGE: 65 SEX: F EXAM STATUS: REG ER ORD. PHYSICIAN: EVARISTO BARRAZA DO REASON: ABDOMINAL DISTENSION PROCEDURE: CT ABDOMEN PELVIS WO CONTRAST EXAM: CT Abdomen and Pelvis without IV contrast INDICATION: Reason: ABDOMINAL DISTENSION / Spl. Instructions: / History: TECHNIQUE: Multi-detector row CT images were acquired from the lung bases through the abdomen and pelvis without the use of IV contrast. Sagittal and coronal images were acquired from the transaxial data. All CT scans performed at this facility utilize dose optimization techniques as appropriate to the exam, including the following: Automated exposure control and adjustment of the mA and/or KV according to patient size (this includes techniques or standardized protocols for targeted exams where dose is indication/reason for exam). ORAL CONTRAST: None COMPARISON: Chest x-ray of earlier the same day FINDINGS: The absence of IV contrast limits evaluation of soft tissue pathology. LOWER CHEST: Trace bilateral pleural effusions. LIVER: Shrunken and nodular contour, consistent with cirrhosis. BILIARY SYSTEM: Cholecystectomy. Bile ducts are not dilated. PANCREAS: Unremarkable SPLEEN: Unremarkable ADRENALS: Unremarkable KIDNEYS & URETERS: Unremarkable BLADDER: Unremarkable REPRODUCTIVE ORGANS: Unremarkable GASTROINTESTINAL: The stomach, small bowel, and colon are unremarkable. The appendix is not well seen but there are no findings of acute appendicitis MESENTERY/PERITONEUM/RETROPERITONEUM: There is a large amount of free intraperitoneal fluid. No free air. VASCULAR: Scattered arterial calcifications. No aneurysm of the abdominal aorta. LYMPH NODES: There is a large right superficial inguinal lymph node measuring 3.7 cm in diameter. Otherwise, no adenopathy is identified. OSSEOUS & SOFT TISSUES: Chronic appearing superior endplate compression deformity at L1 and posterior decompression at L3 and L4 with hetal and pedicle screw construct posterior fusion noted. No acute fracture or aggressive appearing osseous lesions seen. IMPRESSION: Cirrhosis with a large amount of ascites and an enlarged right inguinal lymph node. Recommend clinical follow-up for right inguinal adenopathy with possible eventual tissue sampling if clinically appropriate. Electronically signed by: Angel Lizama MD (05/10/2020 11:29 PM) [facility] [place] Discharge Information Condition at Discharge: Improved Follow Up: Weeks Disposition/Orders: D/C to Home Scheduled Bupropion Hcl (Bupropion Xl) 300 Mg Tab.er.24h, 1 TAB PO DAILY for depression, #30 Ref 2 (Reported) Entered as Reported by: Kianna Alicea on 05/11/20309 Last Action: Converted on 05/11/20 7753 by HUMBERTO GABRIEL MD Fluoxetine Hcl (Fluoxetine Hcl) 40 Mg Capsule, 2 CAP PO HS for depression, #30 Ref 2 (Reported) Entered as Reported by: Kianna Alicea on 05/11/20309 Last Action: Converted on 05/11/201427 by HUMBERTO GABRIEL MD Furosemide (Furosemide) 40 Mg Tablet, 1 TAB PO DAILY for ascites, #30 Ref 5 Prescribed by: CASA DIAZ MD on 05/16/208 Insulin Detemir (Levemir) 100 Unit/1 Ml Vial, 5 UNIT SQ HS for dm, (Reported) Entered as Reported by: Kianna Alicea on 05/11/20309 Last Action: Converted on 05/11/201427 by HUMBERTO GABRIEL MD Insulin Lispro (Humalog) 100 Unit/1 Ml Vial, 100 UNIT SQ QIDACHS for DM, (Reported) Entered as Reported by: Kianna Alicea on 05/11/20309 Last Action: HELD on 05/11/201427 by HUMBERTO GABRIEL MD Lactobacillus Acidophilus (Probiotic) 1 Each Capsule, 1 EACH PO DAILY for supplement, (Reported) Entered as Reported by: Kianna Alicea on 05/11/20309 Last Action: Converted on 05/11/201427 by HUMBERTO GABRIEL MD Metoprolol Succinate (Toprol XL) 50 Mg Tab.er.24h, 50 MG PO DAILY for FOR HYPERTENSION, (Reported) Entered as Reported by: Kianna Alicea on 05/11/20309 Last Action: Continued on 05/11/201427 by HUMBERTO GABRIEL MD Pantoprazole Sodium (Protonix) 20 Mg Tablet.dr, 40 MG PO DAILY for gerd, (Reported) Entered as Reported by: Kianna Alicea on 05/11/20309 Last Action: Converted on 05/11/201427 by HUMBERTO GABRIEL MD Spironolactone (Spironolactone) 100 Mg Tablet, 1 TAB PO DAILY for ascites, #30 Ref 11 Prescribed by: CASA DIAZ MD on 05/16/201107 Discontinued Medications Furosemide (Lasix) 20 Mg Tablet, 60 MG PO DAILY for htn, (Reported) Discontinued Reason: Prescription changed Entered as Reported by: Kianna Alicea on 05/11/20309 Last Action: Continued on 05/11/201427 by HUMBERTO GABRIEL MD Spironolactone (Spironolactone) 50 Mg Tablet, 1 TAB PO BID for ascites, #30 Ref 5 (Reported) Discontinued Reason: Prescription changed Entered as Reported by: Kianna Alicea on 05/11/20309 Last Action: Converted on 05/11/201427 by HUMBERTO GABRIEL MD Justicifation of Admission Dx: Justifications for Admission: Justification of Admission Dx: Yes CASA DIAZ MD May 16, 2020 11:24
--- NOTE | 2020-05-16 11:28 | PDOC ---
Date of Service: DATE: 05/16/20 TIME: 11:25 Subjective: Subjective: Was with therapy when I saw - sitting on edge of bed checking blood pressure. Breakfast tray untouched. Says she ate. Doesn't know where she is but knows the year is 2020. I asked what big sporting event is taking place this weekend and she mentioned something with balloons. She remembers paracentesis yesterday and described "putting a needle in to drain it." Objective: Vital Signs: Vital Signs Date Time Temp Pulse Resp B/P (MAP) Pulse Ox O2 Delivery O2 Flow Rate FiO2 05/16/20 08:55 73 105/54 05/16/20 07:00 97.3 22 89 Nasal Cannula 3.0 97.3 Labs: Laboratory Tests Test 05/15/20 12:40 05/15/20 17:18 05/15/20 20:50 05/16/20 05:15 Body Fluid Source Ascites Body Fluid Color Yellow Body Fluid Clarity Hazy Body Fluid Nucleated Cells 71 /cmm Body Fluid Mononuclear WBCs (%) 70 % Body Fluid Polymorphonuclear Cells 25 % Body Fluid Total RBCs Counted 260 /cmm Body Fluid Other Cells (%) 5 % Glucose (Fingerstick) 118 mg/dL 161 mg/dL Sodium Level 136 mmol/L Potassium Level 3.2 mmol/L Chloride Level 105 mmol/L Carbon Dioxide Level 20 mmol/L Anion Gap 11 Blood Urea Nitrogen 24 mg/dL Creatinine 1.6 mg/dL Estimated GFR (Cockcroft-Gault) 32.5 Glucose Level 133 mg/dL Calcium Level 8.3 mg/dL Test 05/16/20 08:04 Glucose (Fingerstick) 147 mg/dL GRAM STAIN Final Final NO ORGANISMS SEEN. SQUAMOUS EPI CELL:NOT APPLICABLE PMN (WBCs):NONE SEEN ANAEROBIC-AEROBIC CULTURE Preliminary Preliminary No Growth on 05/16/20 at 1049 Unless otherwise specified, Testing Performed by: [address] [id number] For Inquires, the Physician may contact the Microbiology department at [phone] Imaging: Paracentesis 05/15 pending PE: GEN: NAD - therapy helping her stay steady on edge of bed LUNGS: diminished HEART: RRR ABD: less distended than before paracentesis - ?filling up again NEURO/PSYCH: confused A/P: Cirrhosis (likely alcohol), ascites s/p paracentesis x 2 this admission - on Spironolactone here; held for low BP - did get Lasix BRISA (better), UTI, encephalopathy (normal ammonia) Hep C PCR negative Rapid COVID negative 05/12 -- Better than yesterday? Still confused. Has DC orders. Justicifation of Admission Dx: Justifications for Admission: Justification of Admission Dx: Yes MANISH CUELLO May 16, 2020 11:28
--- NOTE | 2020-05-16 13:00 | NUR ---
Paged twice overhead, and once on You Call MD. Received orders to do an ultrasound of the noted right inguinal lymphnode. US done. Pt discharged to facility. PT had BM and used the bedpan appropriately. More alert and oriented x3 than earlier in the shift. Updated facility.
--- NOTE | 2020-05-16 14:07 | PATHOLOGY ---
Note [facility] Accession Number: [id number] TESTS RESULT FLAG UNITS REF RANGE LAB Clinician Provided Cytology Information No. of containers..01 Other (Miscellaneous) Source: 01 ASCITES DIAGNOSIS: 02 ASCITES NEGATIVE FOR MALIGNANT CELLS. REACTIVE MESOTHELIAL CELLS AND FEW INFLAMMATORY CELLS PRESENT. THIS INTERPRETATION INCLUDES EVALUATION OF A CELL BLOCK. Signed out by: 02 Candelario Alvarez MD, Pathologist NPI- [id number] Performed by: Tanisha Russo, Laundry Washer ([facility]) Gross description: 01 45ML, CLEAR YELLOW, 1 TP 1 CB /LCS 05/15/2020 1652 Local FLAG LEGEND: L-Low Normal,H-High Normal,LL-Alert Low,HH-Alert High <-Panic Low,>-Panic High,A-Abnormal,AA-Critical Abnormal Performed at: 01 [facility] [address] [place] [address] Kristofer Chowdhury MD, [facility] [address] [place] [address] aCndelario Alvarez MD, Specimen Comment: A courtesy copy of this report has been sent to [phone], [phone] Specimen Comment: [id number] Specimen Comment: Report sent to Performed at: 01 [facility] [address], [place], [place] [id number] MD Kristofer Chowdhury MD Phone: [phone]
--- NOTE | 2020-05-16 14:45 | NUR ---
Report given to Alla at [facility] at 1000. Patient had US sound done and discharged via wheelchair to facility. PICC removed by James DOUGHERTY intact. Pt drank half of a glucerna prior to leaving. Had BM and urinated.
--- NOTE | 2020-05-16 15:01 | RAD ---
Ultrasound-guided paracentesis 05/15/2020 Procedure: The risks and benefits of the procedure were discussed the patient. Informed consent was obtained. A timeout procedure was performed. Sonographic evaluation of the abdomen was performed demonstrating ascites . The right lower quadrant was prepped and draped using maximum sterile barrier technique. 1% lidocaine without epinephrine was administered for local anesthesia. Real-time ultrasonographic guidance was used in passing a 5 [place] Yueh catheter into the fluid collection. 8.5 L of serous ascites was removed. The catheter was removed and pressure held to achieve hemostasis. A sterile dressing was applied. Impression: Successful ultrasound-guided paracentesis
--- NOTE | 2020-05-16 16:12 | RAD ---
Nonvascular extremity ultrasound INDICATION: Lump in groin COMPARISON: Pelvis CT 05/10/2020 TECHNIQUE: Grayscale and color Doppler imaging of the mass in the right groin was. FINDINGS: An enlarged right groin lymph node measuring 5.6 x 3.3 x 4.0 cm. IMPRESSION: Palpable lump in the right groin represents a pathologically enlarged right lymph node. It should be amenable to percutaneous core needle biopsy for tissue sampling if clinically warranted. Electronically signed by: Angel Lizama MD (05/16/2020 4:09 PM) [id number]
== END 2020-05-16 14:48 | DRG 432 ==
LOC: ER 21:35 → 6 SOUTH 05-11 00:41
PROVIDERS: ADMIT Internal Medicine; ATTEND Internal Medicine
PROC: 0W9G3ZZ Drainage of Peritoneal Cavity, Percutaneous Approach (ICD-10-PCS; 2020-05-12)
PROC: 02HV33Z Insertion of Infusion Device into Superior Vena Cava, Percutaneous Approach (ICD-10-PCS; 2020-05-13)
PROC: B5181ZA Fluoroscopy of Superior Vena Cava using Low Osmolar Contrast, Guidance (ICD-10-PCS; 2020-05-13)
PROC: B548ZZA Ultrasonography of Superior Vena Cava, Guidance (ICD-10-PCS; 2020-05-13)
PROC: 0W9G3ZZ Drainage of Peritoneal Cavity, Percutaneous Approach (ICD-10-PCS; principal; 2020-05-15)
DX: K74.60 Unspecified cirrhosis of liver (principal); G93.41 Metabolic encephalopathy; J96.01 Acute respiratory failure with hypoxia; K76.7 Hepatorenal syndrome; N17.9 Acute kidney failure, unspecified; E87.1 Hypo-osmolality and hyponatremia; N39.0 Urinary tract infection, site not specified; D68.9 Coagulation defect, unspecified; R18.8 Other ascites; K21.9 Gastro-esophageal reflux disease without esophagitis; J44.9 Chronic obstructive pulmonary disease, unspecified; D53.9 Nutritional anemia, unspecified; E11.9 Type 2 diabetes mellitus without complications; E78.5 Hyperlipidemia, unspecified; E86.1 Hypovolemia; F03.90 Unspecified dementia, unspecified severity, without behavioral disturbance, psychotic disturbance, mood disturbance, and anxiety; F17.210 Nicotine dependence, cigarettes, uncomplicated; I10 Essential (primary) hypertension; K72.90 Hepatic failure, unspecified without coma; Z20.822 Contact with and (suspected) exposure to COVID-19; Z82.5 Family history of asthma and other chronic lower respiratory diseases; F41.9 Anxiety disorder, unspecified; M19.90 Unspecified osteoarthritis, unspecified site; Z88.8 Allergy status to other drugs, medicaments and biological substances; Z91.040 Latex allergy status; Z71.6 Tobacco abuse counseling; F10.20 Alcohol dependence, uncomplicated; K76.9 Liver disease, unspecified
CPT/HCPCS: 36415; 36573; 49083; 71045; 74176; 76881; 77001; 80048; 80053; 80069; 81001; 82042; 82105; 82140; 82150; 82945; 82962; 83615; 83690; 83735; 83880; 83986; 84484; 85007; 85025; 85610; 85730; 86301; 86705; 86709; 86803; 87040; 87071; 87075; 87077; 87086; 87186; 87340; 87426; 87522; 88112; 88305; 89050; 93005; 96374; C1751; C1892; G0480; J0696; J1200; J1650; J1815; J2060; J3490; J7030; P9046; U0003; 97116-GP; 97530-GO; 97530-GP; 97535-GO; 99285-25; G0378